=== PATIENT | male | born 1970 | race Caucasian/White ===

== ENCOUNTER 2016-05-25 16:11 | Emergency (ER) | payer BC ==
[2016-05-25 16:11] VITALS: BMI 21.7
[2016-05-25 16:23] VITALS: BP 145/86; PULSE 94; RESP 18; TEMP 97.9; O2SAT 95
[2016-05-25] MEDS ORDERED: TDAP Vaccine 0.5 mL Syr IM ONE (17:26)
--- NOTE | 2016-05-25 17:28 | ED PDOC ---
Arrival/HPI - General Chief Complaint: Upper Extremity Problem/Injury Time Seen by Provider: 05/25/16 17:16 Historian: Patient - History of Present Illness Narrative History of Present Illness (Text): 05/25/16 18:19 45-year-old male presents today with bilateral hand pain and swelling and erythema. 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 Patient states over the past few days his hand has been becoming more painful bilaterally. He's noticed increased redness and swelling. No medications have been taken for pain at home. Patient denies fevers or chills. Patient is unsure of his last tetanus shot. Patient states he just needs antibiotics in a few days off of work and it will be better. Patient states he has been applying lotion to his hands but no matter what he does he cannot stop the pain and is unable to have the cuts resolve. Past Medical History - Provider Review Nursing Documentation Reviewed: Yes - Travel History Have you recently traveled outside [place] w/in the past 3 mons?: No - Past History Past History: No Previous - Infectious Disease Hx of Infectious Diseases: None - Tetanus Immunization Tetanus Immunization: Unknown, Up to Date - Past Medical History Past Medical History: No Previous - Cardiac Hx Cardiac Disorders: No - Pulmonary Hx Respiratory Disorders: No - Neurological Hx Neurological Disorder: No - HEENT Hx HEENT Disorder: No - Renal Hx Renal Disorder: No - Endocrine/Metabolic Hx Endocrine Disorders: No - Hematological/Oncological Hx Blood Disorders: No - Integumentary Hx Dermatological Disorder: No - Musculoskeletal/Rheumatological Hx Musculoskeletal Disorders: Yes Hx Back Pain: Yes Other/Comment: CHRONIC BACK PAIN - Gastrointestinal Hx Gastrointestinal Disorders: No - Genitourinary/Gynecological Hx Genitourinary Disorders: No - Psychiatric Hx Psychophysiologic Disorder: Yes Hx Depression: Yes Hx Substance Use: Yes (Currently on Methadone) Other/Comment: Past drug user - Past Surgical History Past Surgical History: No Previous - Anesthesia Hx Anesthesia: No Hx Anesthesia Reactions: No Hx Malignant Hyperthermia: No - Suicidal Assessment Feels Threatened In Home Enviroment: No Family/Social History - Physician Review Nursing Documentation Reviewed: Yes Family/Social History: Unknown Family HX Smoking Status: Heavy Smoker > 10 Cigarettes Daily Hx Alcohol Use: Yes Hx Substance Use: Yes (Currently on Methadone) Substance used: COCAINE/IV DRUG USE HEROIN Hx Substance Use Treatment: No Allergies/Home Meds Allergies/Adverse Reactions: Allergies Penicillins Allergy (Verified 05/25/16 16:23) RASH pentazocine lactate [From Talwin] Allergy (Verified 05/25/16 16:23) ANAPHYLAXIS Home Medications: Home Meds Medication Instructions Recorded Confirmed Methadone [Methadone HCl] 80 mg PO DAILY 04/02/12 11/28/15 Review of Systems - Review of Systems Constitutional: absent: Fatigue, Fevers Respiratory: absent: SOB, Cough Cardiovascular: absent: Chest Pain, Palpitations Gastrointestinal: absent: Abdominal Pain, Diarrhea, Nausea, Vomiting Genitourinary Male: absent: Dysuria, Frequency, Hematuria Musculoskeletal: Arthralgias. absent: Back Pain, Neck Pain Skin: Cellulitis. absent: Rash, Pruritis Neurological: absent: Headache, Dizziness Psychiatric: absent: Anxiety, Depression, Suicidal Ideation Physical Exam Vital Signs Reviewed: Yes Vital Signs Temp Pulse Resp BP Pulse Ox 05/25/16 16:17 97.9 F 94 H 18 145/86 95 Temperature: Afebrile Blood Pressure: Normal Pulse: Regular Respiratory Rate: Normal Appearance: Positive for: Well-Appearing, Non-Toxic, Comfortable Pain Distress: None Mental Status: Positive for: Alert and Oriented X 3 - Systems Exam Head: Present: Atraumatic Mouth: Present: Moist Mucous Membranes Neck: Present: Normal Range of Motion Respiratory/Chest: Present: Clear to Auscultation, Good Air Exchange. No: Respiratory Distress, Accessory Muscle Use Cardiovascular: Present: Regular Rate and Rhythm, Normal S1, S2. No: Murmurs Upper Extremity: Present: Normal ROM, NORMAL PULSES, Tenderness (hands bilaterally; + tenderness and slight edema and erythema noted to the entire hand with multiple small chronic cuts and lichinifed skin along the volar aspect of the PIP and MCP of fingers and IP of thumb), Swelling, Erythema, Neurovascularly Intact, Capillary Refill < 2s. No: Deformity Neurological: Present: GCS=15, Speech Normal, Motor Func Grossly Intact, Normal Sensory Function Skin: Present: Warm, Dry, Normal Color Psychiatric: Present: Alert, Oriented x 3 Medical Decision Making ED Course and Treatment: 05/25/16 45yr old male with swelling and erythema to the hands bilaterally. afebrile. no distress. pt refusing blood work and further evaluation of cellulitis to bilateral hands. pt states he just wants rx for antibiotics and wants days off of work and wants to go home. i advised the patient that he needs blood work and further evaluation regarding the cellulitis/skin infection on his hands bilaterally. pt states he doesn't want to stay in the hospital. will give patient dose of clindamycin in er and d/c home with rx for clindamcyin. advised return if he wishes to continue his care. tetanus updated. Patient has been advised to not leave the emergency room but has decided to go AGAINST MEDICAL ADVICE. The patient possesses capacity to make decisions and has voiced understanding to all my warnings of potential worsening of the condition for which medical care was sought. I have discussed all known and potential risks and consequences to the patient leaving AGAINST MEDICAL ADVICE. Patient is leaving against medical advise. AMA form signed. witness by ABHILASH giles. Impression: cellulitis, hand bilaterally Return immediately if you wish to continue your care Clindamycin 1 tablet 3 times daily 10 days Motrin every 6 hours as needed for pain Follow up with a hand specialist within the next 2 days Return immediately if symptoms worsen or persist or if new concerning symptoms develop: High fevers, increasing pain, increasing redness, increasing swelling, purulent discharge - Medication Orders Current Medication Orders: Discontinued Medications Clindamycin HCl (Cleocin) 300 mg PO STAT STA PRN Reason: Protocol Stop: 05/25/16 17:20 Last Admin: 05/25/16 17:39 Dose: 300 MG Ibuprofen (Motrin Tab) 600 mg PO STAT STA Stop: 05/25/16 17:21 Last Admin: 05/25/16 17:39 Dose: 600 MG [facility] Pain/Vitals Document 05/25/16 17:39 [facility] (Rec: 05/25/16 17:39 [id number] Pain Reassessment Is This A Pain ReAssessment? No Sleep Is patient sleeping during reassessment? No Presence of Pain Presence of Pain Yes Pain Scale Used Pain Scale Used Numeric Location Left, Right or Bilateral Bilateral Pain Location Body Site Hand Description Intermittent Intensity 6 Scale Used Numeric Pain Behavior Guarding Aggravating Factors Changing Position Tetanus/Reduced Diphtheria/Acell Pertussis (Boostrix Vaccine Inj) 0.5 ml IM .ONCE ONE Stop: 05/25/16 17:27 Last Admin: 05/25/16 17:38 Dose: 0.5 ML [facility] Immunization Data Document 05/25/16 17:38 [facility] (Rec: 05/25/16 17:39 [facility] [id number]) Immunization Data Opt out of sending immunization data to Yes respository? Suppress immunization data to other Yes providers from registry? Vaccine Eligibility Yes Vaccine Information Sheet Given Yes Informed Consent Given Yes Vaccine Lot Number [id number] Vaccine Expiration Date 05/22/18 Site Given Left Deltoid Route Intramuscular Immunization Units ml Disposition/Present on Arrival - Present on Arrival Any Indicators Present on Arrival: No History of DVT/PE: No History of Uncontrolled Diabetes: No Urinary Catheter: No History of Decub. Ulcer: No History Surgical Site Infection Following: None - Disposition Have Diagnosis and Disposition been Completed?: Yes Diagnosis: Cellulitis of hand Disposition: AGAINST MEDICAL ADVICE Disposition Time: 17:25 Patient Plan: Other (AMA) Condition: GUARDED Discharge Instructions (ExitCare): Cellulitis (ED) Additional Instructions: Return immediately if you wish to continue your care Clindamycin 1 tablet 3 times daily 10 days Motrin every 6 hours as needed for pain Follow up with a hand specialist within the next 2 days Return immediately if symptoms worsen or persist or if new concerning symptoms develop: High fevers, increasing pain, increasing redness, increasing swelling, purulent discharge Prescriptions: Clindamycin [Cleocin] 300 mg PO TID #21 cap Ibuprofen [Motrin] 600 mg PO Q6H PRN #20 tab PRN Reason: pain/fever reduction Referrals: PCP,NO [Primary Care Provider] - Follow up with primary Gifty Voss MD [Staff Provider] - Follow up with primary Abby Russell MD [Staff Provider] - Follow up with primary [facility] [Outside] - Follow up with primary Forms: WORK NOTE
== END 2016-05-25 17:45 | disposition left against medical advice (07) ==
LOC: ED 16:11
DX: L03.114 Cellulitis of left upper limb (principal); L03.113 Cellulitis of right upper limb; Z23 Encounter for immunization

== ENCOUNTER 2017-06-07 16:57 | Inpatient (IN) | payer BC, MEDICAID, OTHER ==
--- NOTE | 2017-06-07 17:35 | ED PDOC ---
Arrival/HPI - General Time Seen by Provider: 06/07/17 17:31 Historian: Patient - History of Present Illness Narrative History of Present Illness (Text): 06/07/17 17:32 46 y/o male, no significant pmh, psychiatric history including alcohol and drug abuse which he is on the methadone, penicillin/pentazocine allergy?, c/o Past Medical History - Past History Past History: No Previous - Infectious Disease Hx of Infectious Diseases: None - Tetanus Immunization Tetanus Immunization: Unknown, Up to Date - Past Medical History Past Medical History: No Previous - Cardiac Hx Cardiac Disorders: No - Pulmonary Hx Respiratory Disorders: No - Neurological Hx Neurological Disorder: No - HEENT Hx HEENT Disorder: No - Renal Hx Renal Disorder: No - Endocrine/Metabolic Hx Endocrine Disorders: No - Hematological/Oncological Hx Blood Disorders: No - Integumentary Hx Dermatological Disorder: No - Musculoskeletal/Rheumatological Hx Musculoskeletal Disorders: Yes Hx Back Pain: Yes Other/Comment: CHRONIC BACK PAIN - Gastrointestinal Hx Gastrointestinal Disorders: No - Genitourinary/Gynecological Hx Genitourinary Disorders: No - Psychiatric Hx Psychophysiologic Disorder: Yes Hx Depression: Yes Hx Substance Use: Yes (Currently on Methadone) Other/Comment: Past drug user - Past Surgical History Past Surgical History: No Previous - Anesthesia Hx Anesthesia: No Hx Anesthesia Reactions: No Hx Malignant Hyperthermia: No - Suicidal Assessment Feels Threatened In Home Enviroment: No Family/Social History Smoking Status: Heavy Smoker > 10 Cigarettes Daily Hx Alcohol Use: Yes Hx Substance Use: Yes (Currently on Methadone) Substance used: COCAINE/IV DRUG USE HEROIN Hx Substance Use Treatment: No Allergies/Home Meds Allergies/Adverse Reactions: Allergies Penicillins Allergy (Verified 05/25/16 16:23) RASH pentazocine lactate [From Talwin] Allergy (Verified 05/25/16 16:23) ANAPHYLAXIS Home Medications: Home Meds Medication Instructions Recorded Confirmed Methadone [Methadone HCl] 80 mg PO DAILY 04/02/12 11/28/15 Disposition/Present on Arrival - Present on Arrival History of DVT/PE: No History of Uncontrolled Diabetes: No Urinary Catheter: No History Surgical Site Infection Following: None - Disposition
--- NOTE | 2017-06-07 17:54 | ED PDOC ---
Arrival/HPI - General Time Seen by Provider: 06/07/17 17:31 Historian: Patient - History of Present Illness Narrative History of Present Illness (Text): 06/07/17 17:54 Patient is a 46 yo male who presents to the Emergency Department complaining of left sided abdominal pain. Patient states pain is constant for several "months" , worse over past several weeks. Denies nausea or vomiting. Pain worse with movement. Denies pain with urination. Denies bloody urine or stool. Patient denies testicular pain or swelling. Pain denies rash. Patient denies dark stool or diarrhea. Time/Duration: > month Symptom Onset: Gradual Past Medical History - Provider Review Nursing Documentation Reviewed: Yes - Past History Past History: No Previous - Infectious Disease Hx of Infectious Diseases: None - Tetanus Immunization Tetanus Immunization: Unknown, Up to Date - Past Medical History Past Medical History: No Previous - Cardiac Hx Cardiac Disorders: No - Pulmonary Hx Respiratory Disorders: No - Neurological Hx Neurological Disorder: No - HEENT Hx HEENT Disorder: No - Renal Hx Renal Disorder: No - Endocrine/Metabolic Hx Endocrine Disorders: No - Hematological/Oncological Hx Blood Disorders: No - Integumentary Hx Dermatological Disorder: No - Musculoskeletal/Rheumatological Hx Musculoskeletal Disorders: Yes Hx Back Pain: Yes Other/Comment: CHRONIC BACK PAIN - Gastrointestinal Hx Gastrointestinal Disorders: No - Genitourinary/Gynecological Hx Genitourinary Disorders: No - Psychiatric Hx Psychophysiologic Disorder: Yes Hx Depression: Yes Hx Substance Use: Yes (Currently on Methadone) Other/Comment: Past drug user - Past Surgical History Past Surgical History: No Previous - Anesthesia Hx Anesthesia: No Hx Anesthesia Reactions: No Hx Malignant Hyperthermia: No - Suicidal Assessment Feels Threatened In Home Enviroment: No Family/Social History - Physician Review Nursing Documentation Reviewed: Yes Family/Social History: Unknown Family HX Smoking Status: Heavy Smoker > 10 Cigarettes Daily Hx Alcohol Use: Yes Hx Substance Use: Yes (Currently on Methadone) Substance used: COCAINE/IV DRUG USE HEROIN Hx Substance Use Treatment: No Allergies/Home Meds Allergies/Adverse Reactions: Allergies Penicillins Allergy (Verified 06/07/17 18:08) RASH pentazocine lactate [From Talwin] Allergy (Verified 06/07/17 18:08) ANAPHYLAXIS Home Medications: Home Meds Medication Instructions Recorded Confirmed Unobtainable 06/07/17 06/07/17 Review of Systems - Review of Systems Constitutional: absent: Fatigue, Fevers Eyes: absent: Vision Changes ENT: absent: Hearing Changes Respiratory: absent: SOB Cardiovascular: absent: Chest Pain Gastrointestinal: Abdominal Pain, Appetite Changes. absent: Stool Changes, Constipation, Diarrhea, Nausea, Vomiting, Hematochezia, Hematemesis, Food Intolerance Genitourinary Male: absent: Dysuria, Frequency Musculoskeletal: absent: Back Pain Skin: absent: Rash Neurological: absent: Headache, Dizziness, Focal Weakness Endocrine: absent: Polyuria Hemo/Lymphatic: absent: Easy Bleeding Psychiatric: Depression (patient expresses sadness over reported recent of brother last year and " 2 months ago". He denies suicidal ideation.). absent: Suicidal Ideation Physical Exam - Physical Exam Physical Exam Limitations: Uncooperative (patient slaps my hand away when I attempt to examine) Vital Signs Reviewed: Yes Vital Signs Temp Pulse Resp BP Pulse Ox 06/07/17 21:48 86 16 130/88 96 06/07/17 19:15 99 H 18 103/72 97 06/07/17 17:40 98.2 F 06/07/17 17:37 64 14 113/68 100 Temperature: Afebrile Pulse: Tachycardic Appearance: Positive for: Comfortable Pain Distress: Mild Mental Status: Positive for: Alert and Oriented X 3 - Systems Exam Head: Present: Atraumatic Pupils: Present: PERRL Extroacular Muscles: Present: EOMI Mouth: Present: Moist Mucous Membranes Pharnyx: No: ERYTHEMA, EXUDATE Neck: Present: Normal Range of Motion. No: Meningeal Signs Respiratory/Chest: Present: Clear to Auscultation. No: Respiratory Distress Cardiovascular: Present: Tachycardic Abdomen: Present: Tenderness (left flank, left lower quadrant) Rectal: Present: Other (patient refuses, warned of risks) Genitourinary Male: Present: Other (patient refuses, risks reviewed) Back: Present: Paraspinal Tenderness Upper Extremity: No: Edema Lower Extremity: Present: Other (patient refuses to get undressed) Neurological: Present: Speech Normal, Motor Func Grossly Intact, Normal Sensory Function, Memory Normal Skin: Present: Warm Psychiatric: Present: Alert, Oriented x 3, Normal Insight, Depressed Mood. No: Suicidal Ideation, Homicidal Ideation, Intoxicated Medical Decision Making ED Course and Treatment: 06/07/17 18:19 Upon arrival to ER, I attempted to evaluate patient in the room. I introduced myself as the Emergency Physician, patient confirmed ID and I proceeded to interview patient. He states that he called ambulance because he has been having left sided abdominal pain "for months". I stated that I wished to examine the patient he initially stated "don't you touch me I'm in too much pain ". I discussed with patient in laymens terms that I could not completely examine the patient without palpation and reviewed indications and differential diagnosis. He subsequently agreed to exam through his clothing, I reviewed limitations of this with patient. 06/07/17 20:35 CT abdomen and pelvis: FINDINGS: Lung bases: No acute abnormality as visualized. ABDOMEN: Liver: No acute abnormality as visualized. Gallbladder and bile ducts: No acute abnormality as visualized. Pancreas: No acute abnormality as visualized. Spleen: No splenomegaly. Adrenals: No acute abnormality as visualized. Kidneys and ureters: No obstructing stones. No hydronephrosis. Stomach and bowel: Limited evaluation without enteric contrast. No obstruction. Appendix: No findings to suggest acute appendicitis. PELVIS: Bladder: No acute abnormality as visualized. Reproductive: No acute abnormality as visualized. ABDOMEN and PELVIS: Intraperitoneal space: No free air. No significant fluid collection. Bones/joints: Degenerative changes. Soft tissues: Fat-containing umbilical hernia. Vasculature: Atherosclerosis. No abdominal aortic aneurysm. Lymph nodes: Shotty nodes. IMPRESSION: No obstructing renal calculus or hydronephrosis. Correlate clinically to exclude infection. Please note evaluation for underlying visceral lesions/abnormalities limited without intravenous contrast. 06/07/17 20:38 CT results reviewed with patient. He states that he is beginning to feel nauseous and shaky. He permits me to re-examine him, he is tremulous and tachycardic. He states last drink of alcohol was "7 hours ago". I have discussed with patient in laymens' terms that I would be ordered alcohol level given his reported history of alcohol use and complaints of tremulousness. He states he has taken Librium before, librium ordered. Risks/side effects reviewed with patient. I have recommended admission for alcohol withdrawal, patient is agreeable to treatment plan. Will discuss with admitting team need for mental health evaluation given depression symptoms when medically cleared. 06/07/17 20:51 Patient reiterates that he is not suicidal. 04/08/18 21:53 Patient's case reviewed with Dr. Hernandez, accepts admission to hospitalist service. Endorsed need for mental health evaluation after medical clearance to admitting team. - Lab Interpretations Lab Results: 06/07/17 18:06/07/17 18: Lab Results 06/07/17 18:29: Urine Opiates Screen Negative, Urine Methadone Screen Negative, Ur Barbiturates Screen Negative, Ur Phencyclidine Scrn Negative, Ur Amphetamines Screen Negative, U Benzodiazepines Scrn Negative, U Oth Cocaine Metabols Negative, U Cannabinoids Screen Negative 06/07/17 18:: Salicylates < 1 L, Acetaminophen < 10.0 L 06/07/17 18:: Sodium 146, Potassium 3.8, Chloride 107, Carbon Dioxide 22, Anion Gap 21 H, BUN 8, Creatinine 0.9, Est GFR ( Amer) > 60, Est GFR (Non -Af Amer) > 60, Random Glucose 153 H, Calcium 9.2, Magnesium 2.2, Total Bilirubin 0.4, AST 247 H, ALT 120 H, Alkaline Phosphatase 157 H, Total Protein 7.8, Albumin 4.2, Globulin 3.7, Albumin/Globulin Ratio 1.1, Amylase 63, Lipase 391 H 06/07/17 18:29: Urine Color Yellow, Urine Appearance Clear, Urine pH 5.5, Ur Specific [place] 1.010, Urine Protein Negative, Urine Glucose (UA) Negative, Urine Ketones Negative, Urine Blood Negative, Urine Nitrate Negative, Urine Bilirubin Negative, Urine Urobilinogen 0.2, Ur Leukocyte Esterase Negative 06/07/17 18:: PT 10.0, INR 0.88 L, APTT 31.3 06/07/17 18:29: WBC 5.7, RBC 4.55, Hgb 15.7, Hct 43.8, MCV 96.3, MCH 34.5, MCHC 35.8, RDW 12.3, Plt Count 171, MPV 9.7, Gran % 46.6 L, Lymph % (Auto) 36.4 H, [place] % (Auto) 10.5 H, Eos % (Auto) 5.6 H, Baso % (Auto) 0.9, Gran # 2.68, Lymph # (Auto) 2.1, [place] # (Auto) 0.6, Eos # (Auto) 0.3, Baso # (Auto) 0.05 06/07/17 17:30: Alcohol, Quantitative 297 H 06/07/17 17:30: Lactate Dehydrogenase 838 H, Total Creatine Kinase 107, Troponin I < 0.01 I have reviewed the lab results: Yes - RAD Interpretation Radiology Orders: 06/07/17 18:10 ABD & PELVIS W/O PO OR IV CONT [CT] Stat 06/07/17 20:41 CHEST PORTABLE [RAD] Stat Blockman: Radiologist - EKG Interpretation Interpreted by ED Physician: Yes Type: 12 lead EKG - Medication Orders Current Medication Orders: Discontinued Medications Chlordiazepoxide (Librium) 50 mg PO STAT STA PRN Reason: Protocol Stop: 06/07/17 20:38 Last Admin: 06/07/17 20:41 Dose: 50 mg Famotidine (Pepcid) 20 mg IVP STAT STA Stop: 06/07/17 20:52 Last Admin: 06/07/17 20:56 Dose: 20 mg IVP Administration Document 06/07/17 20:56 CNR (Rec: 06/07/17 20:56 CNR [id number]) Charges for Administration # of IVP Administrations 1 Sodium Chloride (Sodium Chloride 0.9%) 1,000 mls @ 1,000 mls/hr IV .Q1H STA Stop: 06/07/17 21:36 Last Admin: 06/07/17 20:41 Dose: 1,000 mls/hr eMAR Start Stop Document 06/07/17 20:41 CNR (Rec: 06/07/17 20:42 CNR [id number]) Intravenous Solution Start Date 06/07/17 Start Time 20:42 Ondansetron HCl (Zofran Inj) 4 mg IVP ONCE ONE Stop: 06/07/17 20:52 Last Admin: 06/07/17 20:56 Dose: 4 mg IVP Administration Document 06/07/17 20:56 CNR (Rec: 06/07/17 20:56 CNR [id number]) Charges for Administration # of IVP Administrations 1 - Scribe Statement The provider has reviewed the documentation as recorded by the Gastonibashley Brantley Provider Scribe Attestation: All medical record entries made by the Scribe were at my direction and personally dictated by me. I have reviewed the chart and agree that the record accurately reflects my personal performance of the history, physical exam, medical decision making, and the department course for this patient. I have also personally directed, reviewed, and agree with the discharge instructions and disposition. Disposition/Present on Arrival - Present on Arrival Any Indicators Present on Arrival: No History of DVT/PE: No History of Uncontrolled Diabetes: No Urinary Catheter: No History Surgical Site Infection Following: None - Disposition Have Diagnosis and Disposition been Completed?: Yes Diagnosis: Alcohol withdrawal, Flank pain, Abdominal pain, Elevated liver enzymes Disposition: HOSPITALIZED Disposition Time: 20:41 Patient Plan: Admission, Telemetry Patient Problems: Current Active Problems Problem Status Onset Abdominal pain Acute Alcohol withdrawal Acute Elevated liver enzymes Acute Flank pain Acute Condition: SERIOUS
[2017-06-07 17:56] VITALS: BMI 26.3
[2017-06-07 18:54] LABS: ACETAMINOPHEN < 10.0 ug/ml (10.0-20.0); BASO # 0.05 K/mm3 (0.0-2.0); BASO % 0.9 % (0.0-3.0); EOS # 0.3 (0.0-0.7); EOS % 5.6 % (1.5-5.0); GRAN # 2.68 (1.4-6.5); GRAN % 46.6 % (50.0-68.0); HEMOGLOBIN 15.7 g/dL (14.0-18.0); LYMPH # 2.1 (1.2-3.4); LYMPH % 36.4 % (22.0-35.0); MEAN CELL VOLUME 96.3 fl (80.0-105.0); MEAN CORPUSCULAR HEMOGLOBIN 34.5 pg (25.0-35.0); MEAN CORPUSCULAR HGB CONC 35.8 g/dl (31.0-37.0); MEAN PLATELET VOLUME 9.7 fl (7.0-11.0); MONO # 0.6 (0.1-0.6); MONO % 10.5 % (1.0-6.0); RBC 4.55 10^6/uL (3.5-6.1); RED CELL DISTRIBUTION WIDTH 12.3 % (11.5-14.5); SALICYLATE < 1 mg/dL (2.0-20.0); WHITE BLOOD COUNT 5.7 10^3/ul (4.5-11.0)
[2017-06-07 18:55] LABS: ALB/GLOB RATIO 1.1 (1.1-1.8); ALBUMIN 4.2 g/dL (3.0-4.8); AMYLASE 63 U/L (35-125); CALCIUM 9.2 mg/dL (8.4-10.5); GFR AFRICAN-AMERICAN > 60; GFR NON-AFRICAN AMERICAN > 60; LIPASE 391 U/L (23-300); PH,URINE 5.5 (4.7-8.0); URINE APPEARANCE CLEAR (CLEAR); URINE BILIRUBIN NEGATIVE (NEGATIVE); URINE BLOOD NEGATIVE (NEGATIVE); URINE COLOR YELLOW (YELLOW); URINE GLUCOSE (UA) NEGATIVE (NEGATIVE); URINE LEUKOCYTE ESTERASE NEGATIVE Leu/uL (NEGATIVE); URINE PROTEIN NEGATIVE mg/dL (<30 mg/dL); URINE UROBILINOGEN 0.2 E.U./dL (<1 E.U./dL)
[2017-06-07 19:00] LABS: INR 0.88 (0.93-1.08); PARTIAL THROMBOPLASTIN TIME 31.3 Seconds (25.1-36.5)
[2017-06-07 19:06] LABS: BENZODIAZEPINES, UR NEGATIVE (NEGATIVE)
[2017-06-07 19:25] LABS: ALT/SGPT 120 U/L (7-56); AST/SGOT 247 U/L (17-59); BARBITURATES, UR NEGATIVE (NEGATIVE); BLOOD UREA NITROGEN 8 mg/dL (7-21); OPIATES, UR NEGATIVE (NEGATIVE); PHENCYCLIDINE, UR NEGATIVE (NEGATIVE)
--- NOTE | 2017-06-07 20:07 | CT ---
EXAM: CT Abdomen and Pelvis Without Intravenous Contrast CLINICAL HISTORY: 46 years old, male; Pain; Abdominal pain; Acute; Additional info: Left flank pain TECHNIQUE: Axial computed tomography images of the abdomen and pelvis without intravenous contrast. All CT scans at this facility use one or more dose reduction techniques, viz.: automated exposure control; ma/kV adjustment per patient size (including targeted exams where dose is matched to indication; i.e. head); or iterative reconstruction technique. Coronal and sagittal reformatted images were created and reviewed. COMPARISON: No relevant prior studies available. FINDINGS: Lung bases: No acute abnormality as visualized. ABDOMEN: Liver: No acute abnormality as visualized. Gallbladder and bile ducts: No acute abnormality as visualized. Pancreas: No acute abnormality as visualized. Spleen: No splenomegaly. Adrenals: No acute abnormality as visualized. Kidneys and ureters: No obstructing stones. No hydronephrosis. Stomach and bowel: Limited evaluation without enteric contrast. No obstruction. Appendix: No findings to suggest acute appendicitis. PELVIS: Bladder: No acute abnormality as visualized. Reproductive: No acute abnormality as visualized. ABDOMEN and PELVIS: Intraperitoneal space: No free air. No significant fluid collection. Bones/joints: Degenerative changes. Soft tissues: Fat-containing umbilical hernia. Vasculature: Atherosclerosis. No abdominal aortic aneurysm. Lymph nodes: Shotty nodes. IMPRESSION: No obstructing renal calculus or hydronephrosis. Correlate clinically to exclude infection. Please note evaluation for underlying visceral lesions/abnormalities limited without intravenous contrast.
[2017-06-07] MEDS ORDERED: Sodium Chloride 0.9% 1,000 ML IV STA (20:37)
[2017-06-07 20:59] LABS: TROPONIN I < 0.01 ng/mL
[2017-06-07] MEDS ORDERED: Multivitamin (MVI) 10 ML, Thiamine 100 MG, Folic Acid 1 MG in Sodium Chloride 0.9% 1,00... IV ONE (23:30)
--- NOTE | 2017-06-07 23:41 | CP.PCM.HP ---
<Selam Porter - Last Filed: 06/08/17 00:12> History of Present Illness - History of Present Illness History of Present Illness: Selam Porter, PGY1, H&P for Dr Hernandez: CC: alcohol intoxication, LLQ abdominal pain 46 year old male with PMH depression, anxiety, Hepatitis C, HTN, presents for LLQ abdominal pain for past several months. Pt states that it is worse with movement, however, denies trauma to the area. Denies fever, chills, nausea, vomiting, hematemesis, diarrhea, constipation, melena, hematochezia, urinary symptoms, hematuria, testicular pain/swelling. Pt also complains of being depressed over past some time due to custody dillard over his child and his fiance leaving nearly a month ago. Denies suicidal/homicidal ideations. In ED, vitals stable. elevated alcohol level 297. CT abd pelvis negative for inflammatory/infectious etiology. Given Librium, pepcid, zofran and 1L NS bolus in ED. At the time of my exam (after Librium administration), pt sleepy. Denies cp, sob, abdominal pain, nausea, vomiting, headache, fever, chills, neck pain, cough, hemoptysis, diarrhea, constipation, urinary symptoms, leg swelling. 12 point ROS obtained and neg, except as per HPI. PMH: depression, anxiety, Hepatitis C, IV drug user, HTN? PSH: denies All: PCN - rash FH: denies SH: Lives by self. 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 Drinks nikita daily, smokes tobacco 1 ppd x 30 years Present on Admission - Present on Admission Any Indicators Present on Admission: No History of DVT/PE: No History of Uncontrolled Diabetes: No Urinary Catheter: No Decubitus Ulcer Present: No Review of Systems - Review of Systems All systems: reviewed and no additional remarkable complaints except Review of Systems: as per HPI Past Patient History - Infectious Disease Hx of Infectious Diseases: None - Tetanus Immunizations Tetanus Immunization: Unknown, Up to Date - Past Social History Smoking Status: Heavy Smoker > 10 Cigarettes Daily - CARDIAC Hx Cardiac Disorders: No - PULMONARY Hx Respiratory Disorders: No - NEUROLOGICAL Hx Neurological Disorder: No - HEENT Hx HEENT Problems: No - RENAL Hx Chronic Kidney Disease: No - ENDOCRINE/METABOLIC Hx Endocrine Disorders: No - HEMATOLOGICAL/ONCOLOGICAL Hx Blood Disorders: No - INTEGUMENTARY Hx Dermatological Problems: No - MUSCULOSKELETAL/RHEUMATOLOGICAL Hx Musculoskeletal Disorders: Yes Hx Back Pain: Yes Other/Comment: CHRONIC BACK PAIN - GASTROINTESTINAL Hx Gastrointestinal Disorders: No - GENITOURINARY/GYNECOLOGICAL Hx Genitourinary Disorders: No - PSYCHIATRIC Hx Psychophysiologic Disorder: Yes Hx Depression: Yes Hx Substance Use: Yes (Currently on Methadone) Other/Comment: Past drug user - SURGICAL HISTORY Hx Surgeries: No - ANESTHESIA Hx Anesthesia: No Hx Anesthesia Reactions: No Hx Malignant Hyperthermia: No Meds Allergies/Adverse Reactions: Allergies Allergy/AdvReac Type Severity Reaction Status Date / Time Penicillins Allergy RASH Verified 06/07/17 18:08 pentazocine lactate Allergy ANAPHYLAXIS Verified 06/07/17 18:08 [From Michelle] Physical Exam - Constitutional Appears: Non-toxic, No Acute Distress - Head Exam Head Exam: ATRAUMATIC, NORMOCEPHALIC - Eye Exam Eye Exam: EOMI, PERRL. absent: Conjunctival injection, Nystagmus, Scleral icterus Pupil Exam: NORMAL ACCOMODATION, PERRL. absent: Fixed, Irregular, Unequal - ENT Exam ENT Exam: Mucous Membranes Moist - Neck Exam Neck exam: Positive for: Full Rom - Respiratory Exam Respiratory Exam: Clear to Auscultation Bilateral, NORMAL BREATHING PATTERN. absent: Accessory Muscle Use, Rhonchi, Wheezes, Stridor - Cardiovascular Exam Cardiovascular Exam: RRR, +S1, +S2. absent: Systolic Murmur - GI/Abdominal Exam GI & Abdominal Exam: Normal Bowel Sounds, Tenderness (TTP in LLQ). absent: Distended, Firm, Guarding, Mass, Rigid - Extremities Exam Extremities exam: Positive for: normal inspection. Negative for: calf tenderness, pedal edema - Back Exam Back exam: NORMAL INSPECTION - Neurological Exam Neurological exam: Altered (sleepy) - Psychiatric Exam Psychiatric exam: Depressed Additional comments: sleepy - Skin Skin Exam: Dry, Normal Color, Warm Results - Vital Signs Recent Vital Signs: Last Vital Signs Temp 98.2 F 06/07/17 17:40 Pulse 86 06/07/17 21:48 Resp 16 06/07/17 21:48 BP 130/88 06/07/17 21:48 Pulse Ox 96 06/07/17 21:48 - Labs Result Diagrams: 06/07/17 18:29 06/07/17 18:29 Labs: Laboratory Results - last 24 hr 06/07/17 06/07/17 06/07/17 17:30 17:30 18:29 WBC 5.7 RBC 4.55 Hgb 15.7 Hct 43.8 MCV 96.3 MCH 34.5 MCHC 35.8 RDW 12.3 Plt Count 171 MPV 9.7 Gran % 46.6 L Lymph % (Auto) 36.4 H [place] % (Auto) 10.5 H Eos % (Auto) 5.6 H Baso % (Auto) 0.9 Gran # 2.68 Lymph # (Auto) 2.1 [place] # (Auto) 0.6 Eos # (Auto) 0.3 Baso # (Auto) 0.05 PT INR APTT Sodium Potassium Chloride Carbon Dioxide Anion Gap BUN Creatinine Est GFR ( Amer) Est GFR (Non-Af Amer) Random Glucose Calcium Magnesium Total Bilirubin AST ALT Alkaline Phosphatase Lactate Dehydrogenase 838 H Total Creatine Kinase 107 Troponin I < 0.01 Total Protein Albumin Globulin Albumin/Globulin Ratio Amylase Lipase Urine Color Urine Appearance Urine pH Ur Specific [place] Urine Protein Urine Glucose (UA) Urine Ketones Urine Blood Urine Nitrate Urine Bilirubin Urine Urobilinogen Ur Leukocyte Esterase Salicylates Urine Opiates Screen Urine Methadone Screen Acetaminophen Ur Barbiturates Screen Ur Phencyclidine Scrn Ur Amphetamines Screen U Benzodiazepines Scrn U Oth Cocaine Metabols U Cannabinoids Screen Alcohol, Quantitative 297 H 06/07/17 06/07/17 06/07/17 18:29 18:29 18:29 WBC RBC Hgb Hct MCV MCH MCHC RDW Plt Count MPV Gran % Lymph % (Auto) [place] % (Auto) Eos % (Auto) Baso % (Auto) Gran # Lymph # (Auto) [place] # (Auto) Eos # (Auto) Baso # (Auto) PT 10.0 INR 0.88 L APTT 31.3 Sodium 146 Potassium 3.8 Chloride 107 Carbon Dioxide 22 Anion Gap 21 H BUN 8 Creatinine 0.9 Est GFR ( Amer) > 60 Est GFR (Non-Af Amer) > 60 Random Glucose 153 H Calcium 9.2 Magnesium 2.2 Total Bilirubin 0.4 AST 247 H ALT 120 H Alkaline Phosphatase 157 H Lactate Dehydrogenase Total Creatine Kinase Troponin I Total Protein 7.8 Albumin 4.2 Globulin 3.7 Albumin/Globulin Ratio 1.1 Amylase 63 Lipase 391 H Urine Color Yellow Urine Appearance Clear Urine pH 5.5 Ur Specific [place] 1.010 Urine Protein Negative Urine Glucose (UA) Negative Urine Ketones Negative Urine Blood Negative Urine Nitrate Negative Urine Bilirubin Negative Urine Urobilinogen 0.2 Ur Leukocyte Esterase Negative Salicylates Urine Opiates Screen Urine Methadone Screen Acetaminophen Ur Barbiturates Screen Ur Phencyclidine Scrn Ur Amphetamines Screen U Benzodiazepines Scrn U Oth Cocaine Metabols U Cannabinoids Screen Alcohol, Quantitative 06/07/17 06/07/17 18:29 18:29 WBC RBC Hgb Hct MCV MCH MCHC RDW Plt Count MPV Gran % Lymph % (Auto) [place] % (Auto) Eos % (Auto) Baso % (Auto) Gran # Lymph # (Auto) [place] # (Auto) Eos # (Auto) Baso # (Auto) PT INR APTT Sodium Potassium Chloride Carbon Dioxide Anion Gap BUN Creatinine Est GFR ( Amer) Est GFR (Non-Af Amer) Random Glucose Calcium Magnesium Total Bilirubin AST ALT Alkaline Phosphatase Lactate Dehydrogenase Total Creatine Kinase Troponin I Total Protein Albumin Globulin Albumin/Globulin Ratio Amylase Lipase Urine Color Urine Appearance Urine pH Ur Specific [place] Urine Protein Urine Glucose (UA) Urine Ketones Urine Blood Urine Nitrate Urine Bilirubin Urine Urobilinogen Ur Leukocyte Esterase Salicylates < 1 L Urine Opiates Screen Negative Urine Methadone Screen Negative Acetaminophen < 10.0 L Ur Barbiturates Screen Negative Ur Phencyclidine Scrn Negative Ur Amphetamines Screen Negative U Benzodiazepines Scrn Negative U Oth Cocaine Metabols Negative U Cannabinoids Screen Negative Alcohol, Quantitative Assessment & Plan - Assessment and Plan (Free Text) Assessment: 46 year old male with PMH depression, anxiety, Hep C, HTN?, presents for alcohol intoxication, depression: LLQ abdominal pain: likely musculoskeletal - CT abdomen and pelvis: No obstructing renal calculus or hydronephrosis. Correlate clinically to exclude infection. Please note evaluation for underlying visceral lesions/abnormalities limited without intravenous contrast. - Naproxen bid - tolerating regular diet well - Cont to monitor Alcohol Intoxication/withdrawal: - CIWA - Fall/seizure/aspiration precautions - Librium 50 mg PO given in ED - Ativan ab and prn. Will hold librium in setting of elevated LFTs. - Geodon prn - Banana bag - thiamine, folate, MVT - Cont to monitor Transaminitis: likely alcohol induced vs hepatitis C - AST/ALT 2:1 - ALP 157 elevated, lipase 391 - Tylenol level low - ABd US - Hepatitis panel - Avoid hepatotoxic agents - will keep NPO - GI consult. F/u recs. Depression: - UDS neg, salicylate, tylenol levels low. ETOH 297 - denies home meds - Psych consulted. F/u recs - denies suicidal/homicidal ideations PPX: Protonix, SCDs Diet: NPO Discussed with Dr Hernandez. - Date & Time Date: 06/08/17 Time: 00:18 <Chelsi Hernandez - Last Filed: 06/08/17 03:40> Results - Vital Signs Recent Vital Signs: Last Vital Signs Temp 98.1 F 06/07/17 23:36 Pulse 80 06/08/17 01:46 Resp 20 06/08/17 00:01 BP 152/100 H 06/07/17 23:36 Pulse Ox 96 06/07/17 21:48 - Labs Result Diagrams: 06/07/17 18:29 06/07/17 18:29 Attending/Attestation - Attestation I have personally seen and examined this patient.: Yes I have fully participated in the care of the patient.: Yes I have reviewed all pertinent clinical information: Yes Notes (Text): 06/08/17 03:39 Patient was seen when he was in the ER in [facility] room. Agree with history , physical examination, assessment and plan.
[2017-06-07 23:55] VITALS: RESP 20
[2017-06-08 06:10] LABS: BASO # 0.04 K/mm3 (0.0-2.0); BASO % 0.9 % (0.0-3.0); EOS # 0.2 (0.0-0.7); EOS % 4.7 % (1.5-5.0); GRAN # 2.69 (1.4-6.5); GRAN % 57.5 % (50.0-68.0); HEMOGLOBIN 14.9 g/dL (14.0-18.0); LYMPH # 1.2 (1.2-3.4); LYMPH % 25.6 % (22.0-35.0); MEAN CELL VOLUME 96.1 fl (80.0-105.0); MEAN CORPUSCULAR HEMOGLOBIN 33.9 pg (25.0-35.0); MEAN CORPUSCULAR HGB CONC 35.3 g/dl (31.0-37.0); MEAN PLATELET VOLUME 9.6 fl (7.0-11.0); MONO # 0.5 (0.1-0.6); MONO % 11.3 % (1.0-6.0); RBC 4.39 10^6/uL (3.5-6.1); RED CELL DISTRIBUTION WIDTH 12.2 % (11.5-14.5); WHITE BLOOD COUNT 4.7 10^3/ul (4.5-11.0)
[2017-06-08 06:28] VITALS: O2SAT 97
[2017-06-08 07:33] LABS: ALB/GLOB RATIO 1.1 (1.1-1.8); ALBUMIN 3.6 g/dL (3.0-4.8); ALT/SGPT 105 U/L (7-56); AST/SGOT 183 U/L (17-59); BLOOD UREA NITROGEN 6 mg/dL (7-21); CALCIUM 9.4 mg/dL (8.4-10.5); GFR AFRICAN-AMERICAN > 60; GFR NON-AFRICAN AMERICAN > 60
[2017-06-08] MEDS ORDERED: Multivitamin Therapeutic Tab PO SCH (08:00)
--- NOTE | 2017-06-08 09:09 | RAD ---
HISTORY: tremulous COMPARISON: 06/15/2012 FINDINGS: LUNGS: No active pulmonary disease. PLEURA: No significant pleural effusion identified, no pneumothorax apparent. CARDIOVASCULAR: Normal. OSSEOUS STRUCTURES: No significant abnormalities. VISUALIZED UPPER ABDOMEN: Normal. OTHER FINDINGS: None. IMPRESSION: No active disease.
--- NOTE | 2017-06-08 10:23 | US ---
HISTORY: elevated LFTs COMPARISON: None. TECHNIQUE: Sonographic evaluation of the abdomen. FINDINGS: LIVER: Measures cm. Increased echogenicity of the liver parenchyma. No mass. No intrahepatic bile duct dilatation. GALLBLADDER: Unremarkable. No gallstones. COMMON BILE DUCT: Measures mm. No stones. No dilatation. PANCREAS: Prominent pancreatic head. No duct dilatation. RIGHT KIDNEY: Measures cm. Normal echogenicity. No calculus, mass, or hydronephrosis. LEFT KIDNEY: Measures cm. Normal echogenicity. No calculus, mass, or hydronephrosis. SPLEEN: Normal in size and contour. No mass. AORTA: No aneurysmal dilatation. IVC: Unremarkable. OTHER FINDINGS: None. IMPRESSION: Fatty liver. Prominent pancreatic head ; recommend correlation contrast-enhanced thin-section CT scan through the pancreas.
[2017-06-08] MEDS ORDERED: Multivitamin (MVI) 10 ML, Thiamine 100 MG, Folic Acid 1 MG in Sodium Chloride 0.9% 1,00... IV ONE (11:21)
--- NOTE | 2017-06-08 11:35 | CP.PCM.PN ---
Addendum entered and electronically signed by Dhruv Bonilla DO 06/08/17 19:41: Patient attempted to leave AMA today. Patient still very tremulous and weak. Sinus pause was also noted this afternoon. Patient is an elopement risk. We will order 1:1 and f/u with psych recommendations tomorrow. Original Note: <Dhruv Bonilla - Last Filed: 06/08/17 15:40> Subjective - Date & Time of Evaluation Date of Evaluation: 06/08/17 Time of Evaluation: 11:34 - Subjective Subjective: Patient seen and examined at bedside. Patient reported being nauseous in the morning. Patient had one episode of non-bloody bilious vomiting in the afternoon. Patient continues to complain about left lateral pain which he states has not improved. Patient denies any palpitations, chest pain, abdominal pain, urinary symptoms, audio/visual hallucinations, or suicidal/ homicidal ideation. Objective - Vital Signs/Intake and Output Vital Signs (last 24 hours): Temp Pulse Resp BP Pulse Ox 98.2 F 74 20 162/98 H 97 06/08/17 06:00 06/08/17 06:00 06/08/17 06:00 06/08/17 06:00 06/08/17 06:00 Intake and Output: 06/08/17 06/08/17 06:59 18:59 Intake Total 840 Output Total 300 Balance 540 - Medications Medications: Current Medications Alprazolam (Xanax) 1 mg PO BID PRN; Protocol PRN Reason: Anxiety Multivitamins/Vitamin C 10 ml/Thiamine HCl 100 mg/ Folic Acid 1 mg/ Sodium Chloride 1,011.2 mls @ 100 mls/hr IV .Q10H7M ONE Stop: 06/08/17 21:27 Lisinopril (Zestril) 2.5 mg PO DAILY MATT Lorazepam (Ativan) 3 mg IVP Q4H MATT PRN Reason: Protocol Last Admin: 06/08/17 08:33 Dose: 3 mg Lorazepam (Ativan) 1 mg IVP Q6H PRN; Protocol PRN Reason: Symptoms of alcohol withdrawl Last Admin: 06/08/17 05:27 Dose: 1 mg Multivitamins (Thera Tab) 1 tab PO 0800 MATT Last Admin: 06/08/17 08:00 Dose: Not Given Nicotine (Nicoderm Cq) 1 patch TD DAILY [facility] Last Admin: 06/08/17 10:39 Dose: 1 patch Pantoprazole Sodium (Protonix Inj) 40 mg IVP DAILY [facility] Last Admin: 06/08/17 10:39 Dose: 40 mg Thiamine HCl (Vitamin B1 Tab) 100 mg PO DAILY MATT Last Admin: 06/08/17 10:39 Dose: 100 mg Ziprasidone (Geodon Inj) 20 mg IM ONCE PRN; Protocol PRN Reason: Agitation - Labs Labs: 06/08/17 05:50 06/08/17 05:50 PT 10.0 SECONDS (9.4-12.5) 06/07/17 18:29 INR 0.88 (0.93-1.08) L 06/07/17 18:29 APTT 31.3 Seconds (25.1-36.5) 06/07/17 18:29 - Constitutional Appears: Toxic, In Acute Distress - Head Exam Head Exam: ATRAUMATIC, NORMAL INSPECTION, NORMOCEPHALIC - Eye Exam Eye Exam: EOMI, Normal appearance. absent: Scleral icterus - ENT Exam ENT Exam: Mucous Membranes Moist - Respiratory Exam Respiratory Exam: Clear to Ausculation Bilateral - Cardiovascular Exam Cardiovascular Exam: +S1, +S2. absent: Tachycardia, JVD - GI/Abdominal Exam GI & Abdominal Exam: Soft. absent: Tenderness - Extremities Exam Extremities Exam: absent: Pedal Edema - Back Exam Back Exam: CVA tenderness (L), paraspinal tenderness. absent: CVA tenderness (R ) - Neurological Exam Neurological Exam: Alert, Oriented x3 Additional comments: Tremor. - Psychiatric Exam Psychiatric exam: absent: Homicidal Ideation, Suicidal Ideation - Skin Skin Exam: Dry, Intact, Normal Color, Warm Assessment and Plan - Assessment and Plan (Free Text) Assessment: 46 year old male with PMH depression, anxiety, Hep C, HTN?, presents for alcohol intoxication, depression Plan: Left Flank Pain Likely Musculoskeletal. CT abdomen and pelvis (Adm): No obstructing renal calculus or hydronephrosis. Correlate clinically to exclude infection. Please note evaluation for underlying visceral lesions/abnormalities limited without intravenous contrast. - Toradol 30 Q6H PRN - Consider Lidocaine patch. Alcohol Intoxication/withdrawal: - CIWA - Fall/seizure/aspiration precautions - Ativan 3 MATT and 2 PRN. Librium held due to elevated LFT's - Geodon prn - Banana bag - thiamine, folate, MVT - Cont to monitor Transaminitis (Improved) likely alcohol induced vs hepatitis C - Hepatitis panel: POSITIVE HEP C Antibody. Will confirm if patient is treated or untreated. - Avoid hepatotoxic agents - will keep NPO - GI consult. F/u recs. Depression: - UDS neg, salicylate, tylenol levels low. ETOH 297 - denies home meds - Psych consulted. F/u recs - denies suicidal/homicidal ideations PPX: Protonix, SCDs Diet: NPO Discussed with Attending (Dr. Radha De La Fuente) Dhruv Bonilla, PGY1 <Aletha De La Fuente - Last Filed: 06/09/17 11:49> Objective - Vital Signs/Intake and Output Vital Signs (last 24 hours): Temp Pulse Resp BP Pulse Ox 97.6 F 73 20 155/106 H 97 06/08/17 17:29 06/08/17 17:29 06/08/17 17:29 06/08/17 17:29 06/08/17 06:00 Intake and Output: 06/08/17 06/08/17 06:59 18:59 Intake Total 840 0 Output Total 300 800 Balance 540 -800 - Medications Medications: Current Medications Alprazolam (Xanax) 1 mg PO BID PRN; Protocol PRN Reason: Anxiety Multivitamins/Vitamin C 10 ml/Thiamine HCl 100 mg/ Folic Acid 1 mg/ Sodium Chloride 1,011.2 mls @ 100 mls/hr IV .Q10H7M ONE Stop: 06/08/17 21:27 Last Admin: 06/08/17 12:32 Dose: 100 mls/hr Ketorolac Tromethamine (Toradol) 30 mg IVP Q6H PRN PRN Reason: Pain, severe (8-10) Last Admin: 06/08/17 16:25 Dose: 30 mg Lisinopril (Zestril) 2.5 mg PO DAILY MATT Last Admin: 06/08/17 11:52 Dose: 2.5 mg Lorazepam (Ativan) 3 mg IVP Q4H MATT PRN Reason: Protocol Last Admin: 06/08/17 16:30 Dose: 3 mg Lorazepam (Ativan) 2 mg IVP Q6H PRN; Protocol PRN Reason: Symptoms of alcohol withdrawl Multivitamins (Thera Tab) 1 tab PO 0800 [facility] Last Admin: 06/08/17 08:00 Dose: Not Given Nicotine (Nicoderm Cq) 1 patch TD DAILY [facility] Last Admin: 06/08/17 10:39 Dose: 1 patch Ondansetron HCl (Zofran Inj) 4 mg IVP Q4H PRN PRN Reason: Nausea/Vomiting Last Admin: 06/08/17 16:25 Dose: 4 mg Pantoprazole Sodium (Protonix Inj) 40 mg IVP DAILY [facility] Last Admin: 06/08/17 10:39 Dose: 40 mg Thiamine HCl (Vitamin B1 Tab) 100 mg PO DAILY MATT Last Admin: 06/08/17 10:39 Dose: 100 mg Ziprasidone (Geodon Inj) 20 mg IM ONCE PRN; Protocol PRN Reason: Agitation - Labs Labs: 06/08/17 05:50 06/08/17 05:50 PT 10.0 SECONDS (9.4-12.5) 06/07/17 18:29 INR 0.88 (0.93-1.08) L 06/07/17 18:29 APTT 31.3 Seconds (25.1-36.5) 06/07/17 18:29 Attending/Attestation - Attestation I have personally seen and examined this patient.: Yes I have fully participated in the care of the patient.: Yes I have reviewed all pertinent clinical information, including history, physical exam and plan: Yes Notes (Text): I have seen and examined the patient at bedside. Agree with the above note with the following additions/ exceptions: Briefly this is 46 year old male with history of depression, anxiety, Hep C (known / untreated), HTN, non compliant with medications who presents for evaluation of left upper quadrant pain, alcohol intoxication and symptoms of depression. Lipase level was found to be elevated. CT scan result pending. Continue IV hydration. Patient was made NPO. Patient is upset and is asking for food. He also was threatening to leave AMA. Explained to the patient that he needs to stay in the hospital for IV hydration and needs bowel rest. GI consult appreciated. Agreed to keep patient npo. Continue CIWA protocol. Patient is tremulous, anxious and diaphoretic. Denies auditory or visual hallucinations or delirium. Continue ativan, geodon and banana bag. Transaminitis likely due to alcohol induced. UDS negative. Psych consult pending for depression. Patient denies homicidal or suicidal ideation. Upon discharge patient will follow up with Dr Chavira or Dr Anthony. Dr Aletha De La Fuente
--- NOTE | 2017-06-08 12:08 | CARD ---
APPROVED REPORT EKG Measurement Heart [id number] <Conclusion> Normal sinus rhythm Normal ECG
[2017-06-08 12:22] LABS: HDL CHOLESTEROL 106 mg/dL (29-60)
[2017-06-08 12:25] LABS: HEPATITIS B SURFACE AG Negative (NEGATIVE)
[2017-06-08 12:31] LABS: HEPATITIS A IGM NEGATIVE (NEGATIVE); HEPATITIS B CORE AB NEGATIVE (NEGATIVE)
[2017-06-08 12:33] LABS: LDL CHOLESTEROL 83 mg/dL (0-129)
[2017-06-08 13:47] LABS: HEPATITIS C ANTIBODY REACTIVE (NEGATIVE)
--- NOTE | 2017-06-08 14:01 | CARD ---
APPROVED REPORT EKG Measurement Heart [id number] <Conclusion> Normal sinus rhythm Normal ECG
[2017-06-08] MEDS ORDERED: Lidocaine 5% Patch TD ONE (19:52)
[2017-06-09 06:16] VITALS: BP 152/108; PULSE 64; TEMP 97.9
[2017-06-09 06:27] LABS: BASO # 0.03 K/mm3 (0.0-2.0); BASO % 0.6 % (0.0-3.0); EOS # 0.3 (0.0-0.7); EOS % 5.6 % (1.5-5.0); GRAN # 3.03 (1.4-6.5); GRAN % 60.1 % (50.0-68.0); HEMOGLOBIN 15.7 g/dL (14.0-18.0); LYMPH # 1.3 (1.2-3.4); LYMPH % 24.8 % (22.0-35.0); MEAN CELL VOLUME 95.1 fl (80.0-105.0); MEAN CORPUSCULAR HEMOGLOBIN 33.7 pg (25.0-35.0); MEAN CORPUSCULAR HGB CONC 35.4 g/dl (31.0-37.0); MEAN PLATELET VOLUME 9.7 fl (7.0-11.0); MONO # 0.5 (0.1-0.6); MONO % 8.9 % (1.0-6.0); RBC 4.66 10^6/uL (3.5-6.1); RED CELL DISTRIBUTION WIDTH 12.2 % (11.5-14.5)
[2017-06-09 07:08] LABS: ALB/GLOB RATIO 1.1 (1.1-1.8); ALBUMIN 3.7 g/dL (3.0-4.8); ALT/SGPT 95 U/L (7-56); AST/SGOT 145 U/L (17-59); BLOOD UREA NITROGEN 6 mg/dL (7-21); CALCIUM 9.7 mg/dL (8.4-10.5); GFR AFRICAN-AMERICAN > 60; GFR NON-AFRICAN AMERICAN > 60
[2017-06-09] MEDS ORDERED: Potassium Chloride 20 mEq ER Tab PO ONE (08:55)
--- NOTE | 2017-06-09 09:16 | CON ---
DATE: 06/08/2017 HISTORY OF PRESENT ILLNESS: This patient was seen and evaluated earlier today. This 46-year-old patient admitted with complaints of abdominal pain mainly left-sided abdominal pain, left upper quadrant area. This patient has history of depression, anxiety, chronic hepatitis C, hypertension. He mentioned that the pain in the left upper quadrant has been present for several months, now recently got worse, came to the ER. Patient has history of alcohol abuse. In the ER, he was found to have an elevated alcohol level of 297. Patient did have a CT done. No history of any diarrhea, no vomiting. PAST MEDICAL HISTORY: Other past medical history is significant as above. ALLERGIES: PATIENT IS ALLERGIC TO PENICILLIN. FAMILY HISTORY: Noncontributory. SOCIAL HISTORY: Positive for smoking about 1 pack per day for 30 years and also alcohol, nikita almost everyday. PHYSICAL EXAMINATION: GENERAL: Patient is lying on the bed, not in acute distress. VITAL SIGNS: Temperature is 98.2, blood pressure is 162/98, pulse 74, respirations 20 and O2 saturation 97%. HEENT: Atraumatic, anicteric. NECK: Supple. HEART: S1, S2 heard. LUNGS: Bilateral air entry present. ABDOMEN: Soft. Tenderness present in the left upper quadrant area. There is no rebound or guarding. EXTREMITIES: No cyanosis. No clubbing. NEUROLOGIC: Alert, oriented. Moves all the extremities. LABORATORY DATA: Hemoglobin is , hematocrit 42.2, WBC 4.7, platelets 137. Chemistries: AST of 183, ALT 105, alkaline phosphatase 139, BUN 6, creatinine 0.7 and lipase is 358. Patient did have an ultrasound scan of the abdomen done, which showed no gallstones. Common bile duct is normal. Patient had a CT scan of the abdomen and pelvis done with no IV or p.o. contrast, did not show any significant inflammatory changes. However, the CT was limited because of the lack of contrast. IMPRESSION: This is a 46-year-old patient with long history of alcohol abuse, admitted with: 1. Acute worsening of the left upper quadrant abdominal pain. Patient's alcohol level was 297 when he came in. The ultrasound showed no stones and CT done, limited study, did not show any significant inflammatory changes. Clinically, it is more suggestive of acute pancreatitis. The other differential diagnosis include peptic ulcer disease and erosive gastritis, and esophagitis also to be considered. 2. Impending delirium tremens. 3. Elevated liver function tests; may be related to drug induced; due to alcoholic hepatitis is also to be considered. RECOMMENDATIONS: 1. PPI. 2. IV hydration. 3. Close followup of the LFTs. Patient has a history of hepatitis C antibody positive. Would recommend PCR. Patient will be kept on n.p.o except liquid. Start the patient on a clear liquid diet. Thank you very much for allowing us to participate in the care of the patient. Alyssa Sauceda MD
--- NOTE | 2017-06-09 10:10 | CP.PCM.DIS ---
<Dhruv Bonilla - Last Filed: 06/09/17 10:41> Provider - Provider Date of Admission: 06/07/17 21:21 Attending physician: Aletha De La Fuente MD Consults: GI - Dr. Sauceda Psych - Dr. Casey Time Spent in preparation of Discharge (in minutes): 40 Diagnosis - Discharge Diagnosis (1) Alcohol withdrawal Status: Acute (2) Elevated liver enzymes Status: Acute (3) Flank pain Status: Acute (4) Alcohol intoxication Status: Acute Hospital Course - Lab Results Lab Results: Most Recent Lab Values WBC 5.0 10^3/ul (4.5-11.0) 06/09/17 05:30 RBC 4.66 10^6/uL (3.5-6.1) 06/09/17 05:30 Hgb 15.7 g/dL (14.0-18.0) 06/09/17 05:30 Hct 44.3 % (42.0-52.0) 06/09/17 05:30 MCV 95.1 fl (80.0-105.0) 06/09/17 05:30 MCH 33.7 pg (25.0-35.0) 06/09/17 05:30 MCHC 35.4 g/dl (31.0-37.0) 06/09/17 05:30 RDW 12.2 % (11.5-14.5) 06/09/17 05:30 Plt Count 149 10^3/uL (120.0-450.0) 06/09/17 05:30 MPV 9.7 fl (7.0-11.0) 06/09/17 05:30 Gran % 60.1 % (50.0-68.0) 06/09/17 05:30 Lymph % (Auto) 24.8 % (22.0-35.0) 06/09/17 05:30 [place] % (Auto) 8.9 % (1.0-6.0) H 06/09/17 05:30 Eos % (Auto) 5.6 % (1.5-5.0) H 06/09/17 05:30 Baso % (Auto) 0.6 % (0.0-3.0) 06/09/17 05:30 Gran # 3.03 (1.4-6.5) 06/09/17 05:30 Lymph # (Auto) 1.3 (1.2-3.4) 06/09/17 05:30 [place] # (Auto) 0.5 (0.1-0.6) 06/09/17 05:30 Eos # (Auto) 0.3 (0.0-0.7) 06/09/17 05:30 Baso # (Auto) 0.03 K/mm3 (0.0-2.0) 06/09/17 05:30 PT 10.0 SECONDS (9.4-12.5) 06/07/17 18:29 INR 0.88 (0.93-1.08) L 06/07/17 18:29 APTT 31.3 Seconds (25.1-36.5) 06/07/17 18:29 Sodium 137 mmol/L (132-148) 06/09/17 05:30 Potassium 3.4 mmol/L (3.6-5.0) L 06/09/17 05:30 Chloride 103 mmol/L (98-107) 06/09/17 05:30 Carbon Dioxide 26 mmol/L (21-33) 06/09/17 05:30 Anion Gap 12 (10-20) 06/09/17 05:30 BUN 6 mg/dL (7-21) L 06/09/17 05:30 Creatinine 0.7 mg/dl (0.8-1.5) L 06/09/17 05:30 Est GFR ( Amer) > 60 06/09/17 05:30 Est GFR (Non-Af Amer) > 60 06/09/17 05:30 Random Glucose 87 mg/dL (70-110) 06/09/17 05:30 Calcium 9.7 mg/dL (8.4-10.5) 06/09/17 05:30 Phosphorus 4.1 mg/dL (2.5-4.5) 06/09/17 05:30 Magnesium 1.9 mg/dL (1.7-2.2) 06/09/17 05:30 Total Bilirubin 1.6 mg/dL (0.2-1.3) H 06/09/17 05:30 AST 145 U/L (17-59) H D 06/09/17 05:30 ALT 95 U/L (7-56) H 06/09/17 05:30 Alkaline Phosphatase 109 U/L (38-126) 06/09/17 05:30 Lactate Dehydrogenase 838 U/L (333-699) H 06/07/17 17:30 Total Creatine Kinase 107 U/L (35-230) 06/07/17 17:30 Troponin I < 0.01 ng/mL 06/07/17 17:30 Total Protein 7.2 g/dL (5.8-8.3) 06/09/17 05:30 Albumin 3.7 g/dL (3.0-4.8) 06/09/17 05:30 Globulin 3.5 gm/dL 06/09/17 05:30 Albumin/Globulin Ratio 1.1 (1.1-1.8) 06/09/17 05:30 Triglycerides 76 mg/dL (35-160) 06/08/17 12:00 Cholesterol 201 mg/dL (130-200) H 06/08/17 12:00 LDL Cholesterol Direct 83 mg/dL (0-129) 06/08/17 12:00 HDL Cholesterol 106 mg/dL (29-60) H 06/08/17 12:00 Amylase 63 U/L (35-125) 06/07/17 18:29 Lipase 358 U/L (23-300) H 06/08/17 05:50 Urine Color Yellow (YELLOW) 06/07/17 18:29 Urine Appearance Clear (CLEAR) 06/07/17 18:29 Urine pH 5.5 (4.7-8.0) 06/07/17 18:29 Ur Specific [place] 1.010 (1.005-1.035) 06/07/17 18:29 Urine Protein Negative mg/dL (<30 mg/dL) 06/07/17 18:29 Urine Glucose (UA) Negative mg/dL (NEGATIVE) 06/07/17 18:29 Urine Ketones Negative mg/dL (NEGATIVE) 06/07/17 18:29 Urine Blood Negative (NEGATIVE) 06/07/17 18:29 Urine Nitrate Negative (NEGATIVE) 06/07/17 18:29 Urine Bilirubin Negative (NEGATIVE) 06/07/17 18:29 Urine Urobilinogen 0.2 E.U./dL (<1 E.U./dL) 06/07/17 18:29 Ur Leukocyte Esterase Negative [place]/uL (NEGATIVE) 06/07/17 18:29 Salicylates < 1 mg/dL (2.0-20.0) L 06/07/17 18:29 Urine Opiates Screen Negative (NEGATIVE) 06/07/17 18:29 Urine Methadone Screen Negative (NEGATIVE) 06/07/17 18:29 Acetaminophen < 10.0 ug/ml (10.0-20.0) L 06/07/17 18:29 Ur Barbiturates Screen Negative (NEGATIVE) 06/07/17 18:29 Ur Phencyclidine Scrn Negative (NEGATIVE) 06/07/17 18:29 Ur Amphetamines Screen Negative (NEGATIVE) 06/07/17 18:29 U Benzodiazepines Scrn Negative (NEGATIVE) 06/07/17 18:29 U Oth Cocaine Metabols Negative (NEGATIVE) 06/07/17 18:29 U Cannabinoids Screen Negative (NEGATIVE) 06/07/17 18:29 Alcohol, Quantitative 297 mg/dL (0-10) H 06/07/17 17:30 Hepatitis A IgM Ab Negative (NEGATIVE) 06/08/17 06:30 Hep Bs Antigen Negative (NEGATIVE) 06/08/17 06:30 Hep B Core IgM Ab Negative (NEGATIVE) 06/08/17 06:30 Hepatitis C Antibody Reactive (NEGATIVE) 06/08/17 06:30 - Hospital Course Hospital Course: This patient is a 46 year old male with a PMH of depression, anxiety, Hepatitis C, and hypertension who was admitted for evaluation and treatment of Left flank pain and alcohol intoxication/withdrawal. Patient presented to the ED with stable vitals and alcohol level of 297. Liver enzymes were elevated and began downtrending. UA was unremarkable. Hepatitis Panel returned positive for Hepatitis C antibody. CT abd/pelvis was negative for inflammatory/infectious etiology. Abdominal US read "Fatty liver. Prominent pancreatic head ; recommend correlation contrast-enhanced thin-section CT scan through the pancreas." GI and and Psych were consulted on the case. Patient wished to leave yesterday but agreed to stay to see psych and for further testing. This morning patient wanted to leave AMA once again. Benefits of staying for inpatient treatment were explained to the patient including - further treatment for alcohol withdrawal/intoxication, pain control, evaluation by psychiatrist and further testing for pancreatic head lesion. Risk of leaving were explained to the patient including risk of arrythmia, [place], Seizure, and delay of treatment for possible malignancy. Patient left against medical advice. Patient has been given a card to follow up at [facility] health clinic. He was told to follow up as soon as possible. Patient was also told to return to the ED if symptoms returned or worsened. Dhruv Bonilla, PGY1 Discharge Exam - Head Exam Head Exam: ATRAUMATIC, NORMAL INSPECTION, NORMOCEPHALIC - Eye Exam Eye Exam: Conjunctival injection - ENT Exam ENT Exam: Mucous Membranes Moist - Respiratory Exam Respiratory Exam: Clear to PA & Lateral. absent: Accessory Muscle Use, Rales, Rhonchi, Wheezes - Cardiovascular Exam Cardiovascular Exam: RRR, +S1, +S2 - GI/Abdominal Exam GI & Abdominal Exam: Normal Bowel Sounds, Soft. absent: Tenderness - Back Exam Back exam: absent: CVA tenderness (L), CVA tenderness (R) - Neurological Exam Neurological exam: Alert, Oriented x3 Additional comments: tremulous (Improved from yesterday) - Skin Skin Exam: Normal Color, Warm Discharge Plan - Follow Up Plan Condition: SERIOUS Disposition: AGAINST MEDICAL ADVICE <Aletha De La Fuente - Last Filed: 06/09/17 12:10> Provider - Provider Date of Admission: 06/07/17 21:21 Attending physician: Aletha De La Fuente MD Hospital Course - Lab Results Lab Results: Most Recent Lab Values WBC 5.0 10^3/ul (4.5-11.0) 06/09/17 05:30 RBC 4.66 10^6/uL (3.5-6.1) 06/09/17 05:30 Hgb 15.7 g/dL (14.0-18.0) 06/09/17 05:30 Hct 44.3 % (42.0-52.0) 06/09/17 05:30 MCV 95.1 fl (80.0-105.0) 06/09/17 05:30 MCH 33.7 pg (25.0-35.0) 06/09/17 05:30 MCHC 35.4 g/dl (31.0-37.0) 06/09/17 05:30 RDW 12.2 % (11.5-14.5) 06/09/17 05:30 Plt Count 149 10^3/uL (120.0-450.0) 06/09/17 05:30 MPV 9.7 fl (7.0-11.0) 06/09/17 05:30 Gran % 60.1 % (50.0-68.0) 06/09/17 05:30 Lymph % (Auto) 24.8 % (22.0-35.0) 06/09/17 05:30 [place] % (Auto) 8.9 % (1.0-6.0) H 06/09/17 05:30 Eos % (Auto) 5.6 % (1.5-5.0) H 06/09/17 05:30 Baso % (Auto) 0.6 % (0.0-3.0) 06/09/17 05:30 Gran # 3.03 (1.4-6.5) 06/09/17 05:30 Lymph # (Auto) 1.3 (1.2-3.4) 06/09/17 05:30 [place] # (Auto) 0.5 (0.1-0.6) 06/09/17 05:30 Eos # (Auto) 0.3 (0.0-0.7) 06/09/17 05:30 Baso # (Auto) 0.03 K/mm3 (0.0-2.0) 06/09/17 05:30 PT 10.0 SECONDS (9.4-12.5) 06/07/17 18:29 INR 0.88 (0.93-1.08) L 06/07/17 18:29 APTT 31.3 Seconds (25.1-36.5) 06/07/17 18:29 Sodium 137 mmol/L (132-148) 06/09/17 05:30 Potassium 3.4 mmol/L (3.6-5.0) L 06/09/17 05:30 Chloride 103 mmol/L (98-107) 06/09/17 05:30 Carbon Dioxide 26 mmol/L (21-33) 06/09/17 05:30 Anion Gap 12 (10-20) 06/09/17 05:30 BUN 6 mg/dL (7-21) L 06/09/17 05:30 Creatinine 0.7 mg/dl (0.8-1.5) L 06/09/17 05:30 Est GFR ( Amer) > 60 06/09/17 05:30 Est GFR (Non-Af Amer) > 60 06/09/17 05:30 Random Glucose 87 mg/dL (70-110) 06/09/17 05:30 Calcium 9.7 mg/dL (8.4-10.5) 06/09/17 05:30 Phosphorus 4.1 mg/dL (2.5-4.5) 06/09/17 05:30 Magnesium 1.9 mg/dL (1.7-2.2) 06/09/17 05:30 Total Bilirubin 1.6 mg/dL (0.2-1.3) H 06/09/17 05:30 AST 145 U/L (17-59) H D 06/09/17 05:30 ALT 95 U/L (7-56) H 06/09/17 05:30 Alkaline Phosphatase 109 U/L (38-126) 06/09/17 05:30 Lactate Dehydrogenase 838 U/L (333-699) H 06/07/17 17:30 Total Creatine Kinase 107 U/L (35-230) 06/07/17 17:30 Troponin I < 0.01 ng/mL 06/07/17 17:30 Total Protein 7.2 g/dL (5.8-8.3) 06/09/17 05:30 Albumin 3.7 g/dL (3.0-4.8) 06/09/17 05:30 Globulin 3.5 gm/dL 06/09/17 05:30 Albumin/Globulin Ratio 1.1 (1.1-1.8) 06/09/17 05:30 Triglycerides 76 mg/dL (35-160) 06/08/17 12:00 Cholesterol 201 mg/dL (130-200) H 06/08/17 12:00 LDL Cholesterol Direct 83 mg/dL (0-129) 06/08/17 12:00 HDL Cholesterol 106 mg/dL (29-60) H 06/08/17 12:00 Amylase 63 U/L (35-125) 06/07/17 18:29 Lipase 358 U/L (23-300) H 06/08/17 05:50 Urine Color Yellow (YELLOW) 06/07/17 18:29 Urine Appearance Clear (CLEAR) 06/07/17 18:29 Urine pH 5.5 (4.7-8.0) 06/07/17 18:29 Ur Specific [place] 1.010 (1.005-1.035) 06/07/17 18:29 Urine Protein Negative mg/dL (<30 mg/dL) 06/07/17 18:29 Urine Glucose (UA) Negative mg/dL (NEGATIVE) 06/07/17 18:29 Urine Ketones Negative mg/dL (NEGATIVE) 06/07/17 18:29 Urine Blood Negative (NEGATIVE) 06/07/17 18:29 Urine Nitrate Negative (NEGATIVE) 06/07/17 18:29 Urine Bilirubin Negative (NEGATIVE) 06/07/17 18:29 Urine Urobilinogen 0.2 E.U./dL (<1 E.U./dL) 06/07/17 18:29 Ur Leukocyte Esterase Negative [place]/uL (NEGATIVE) 06/07/17 18:29 Salicylates < 1 mg/dL (2.0-20.0) L 06/07/17 18:29 Urine Opiates Screen Negative (NEGATIVE) 06/07/17 18:29 Urine Methadone Screen Negative (NEGATIVE) 06/07/17 18:29 Acetaminophen < 10.0 ug/ml (10.0-20.0) L 06/07/17 18:29 Ur Barbiturates Screen Negative (NEGATIVE) 06/07/17 18:29 Ur Phencyclidine Scrn Negative (NEGATIVE) 06/07/17 18:29 Ur Amphetamines Screen Negative (NEGATIVE) 06/07/17 18:29 U Benzodiazepines Scrn Negative (NEGATIVE) 06/07/17 18:29 U Oth Cocaine Metabols Negative (NEGATIVE) 06/07/17 18:29 U Cannabinoids Screen Negative (NEGATIVE) 06/07/17 18:29 Alcohol, Quantitative 297 mg/dL (0-10) H 06/07/17 17:30 Hepatitis A IgM Ab Negative (NEGATIVE) 06/08/17 06:30 Hep Bs Antigen Negative (NEGATIVE) 06/08/17 06:30 Hep B Core IgM Ab Negative (NEGATIVE) 06/08/17 06:30 Hepatitis C Antibody Reactive (NEGATIVE) 06/08/17 06:30 Attending/Attestation - Attestation I have personally seen and examined this patient.: Yes I have fully participated in the care of the patient.: Yes I have reviewed all pertinent clinical information, including history, physical exam and plan: Yes Notes (Text): I have seen and examined the patient at bedside. Agree with the above note with the following additions/ exceptions: Briefly this is 46 year old male with history of depression, anxiety, Hep C (known / untreated), HTN, non compliant with medications who presents for evaluation of left upper quadrant pain, alcohol intoxication and symptoms of depression. Lipase level was found to be elevated. High suspicion of acute alcohol induced pancreatitis vs GERD. CT scan result revealed prominence of pancreatic head. Pancreas CT recommended however patient states that he came here for abdominal pain which has resolved. He wants to leave [facility]. He is not agreeable for CT pancreas. Refusing to wait for CT abdomen report. Patient is upset and is asking for food. We advised the patient that we will advance the diet today however he is not willing to stay in the hospital. Explained to the patient that he needs to stay in the hospital for IV hydration and needs bowel rest. He also needs ativan tapering but patient is not agreeable to change his mind. He is alert, awake, oriented to time, place and person. He has mild tremors and denies anxiety, headache, nausea , vomiting, diaphoresis, visual or auditory hallucinations. GI consult appreciated. Transaminitis likely due to alcohol induced. UDS negative. Psych consult still pending for depression. Patient denies homicidal or suicidal ideation. Upon discharge patient will follow up with Dr Chavira or Dr Anthony. 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 Patient left AMA. Risk of signing AMA explained in detail including recurrent pancreatitis, sepsis, septic shock, dehydration, seizure, stroke, fall, delirium tremons, electrolyte imbalance, metabolic abnormalities and even . Patient verbalized understanding. Dr Aletha De La Fuente
[2017-06-09] MEDS ORDERED: Lidocaine 5% Patch TD ONE (19:52)
== END 2017-06-09 10:08 | disposition left against medical advice (07) | DRG 749 ==
LOC: ED 16:57 → ERH 21:21 → 2RNO 23:10
PROVIDERS: ADMIT Internal Medicine; ATTEND Hospitalist
DX: F10.239 Alcohol dependence with withdrawal, unspecified (principal); B18.2 Chronic viral hepatitis C; Y90.8 Blood alcohol level of 240 mg/100 ml or more; I10 Essential (primary) hypertension; F32.9 Major depressive disorder, single episode, unspecified; F41.9 Anxiety disorder, unspecified; F17.210 Nicotine dependence, cigarettes, uncomplicated; R10.12 Left upper quadrant pain; R10.32 Left lower quadrant pain; Z88.0 Allergy status to penicillin; Z91.14 Patient's other noncompliance with medication regimen

== ENCOUNTER 2017-06-10 08:01 | Emergency (ER) | payer MEDICAID ==
[2017-06-10 08:02] VITALS: BMI 26.3
[2017-06-10 08:17] VITALS: RESP 18
--- NOTE | 2017-06-10 08:20 | ED PDOC ---
Arrival/HPI - General Chief Complaint: Back Pain Time Seen by Provider: 06/10/17 08:11 Historian: Patient - History of Present Illness Narrative History of Present Illness (Text): 06/10/17 08:19 A 46 year old male, whose past medical history includes hypertension, hepatitis c, depression, anxiety, and alcohol abuse, presents to the emergency department complaining of left back pain. Patient signed out against medical advise from the hospital yesterday. He was recommended a CT of his pancreas to rule out pancreatic cancer. Patient admits to drinking alcohol today. Patient denies any trauma, fever, chills, nausea, vomiting, abdominal pain, chest pain, shortness of breath, headache, dizziness, suicidal ideation, homicidal ideation or any other complaints. Past Medical History - Provider Review Nursing Documentation Reviewed: Yes - Past History Past History: No Previous - Infectious Disease Hx of Infectious Diseases: None - Tetanus Immunization Tetanus Immunization: Unknown, Up to Date - Past Medical History Past Medical History: No Previous - Cardiac Hx Hypertension: Yes - Pulmonary Hx Respiratory Disorders: No - Neurological Hx Neurological Disorder: No - HEENT Hx HEENT Disorder: No - Renal Hx Renal Disorder: No - Endocrine/Metabolic Hx Endocrine Disorders: No - Hematological/Oncological Hx Blood Disorders: No - Integumentary Hx Dermatological Disorder: No - Musculoskeletal/Rheumatological Hx Musculoskeletal Disorders: Yes Hx Back Pain: Yes Hx Falls: Yes Other/Comment: CHRONIC BACK PAIN - Gastrointestinal Hx Gastrointestinal Disorders: No - Genitourinary/Gynecological Hx Genitourinary Disorders: No - Psychiatric Hx Psychophysiologic Disorder: Yes Hx Depression: Yes Hx Substance Use: No Other/Comment: Past drug user - Past Surgical History Past Surgical History: No Previous - Anesthesia Hx Anesthesia: No Hx Anesthesia Reactions: No Hx Malignant Hyperthermia: No - Suicidal Assessment Feels Threatened In Home Enviroment: No Family/Social History - Physician Review Nursing Documentation Reviewed: Yes Family/Social History: No Known Family HX Smoking Status: Heavy Smoker > 10 Cigarettes Daily Hx Alcohol Use: Yes (beer daily) Frequency of alcohol use: Daily Hx Substance Use: No Substance used: COCAINE/IV DRUG USE HEROIN Hx Substance Use Treatment: No Allergies/Home Meds Allergies/Adverse Reactions: Allergies Penicillins Allergy (Verified 06/10/17 08:14) RASH pentazocine lactate [From [place]win] Allergy (Verified 06/10/17 08:14) ANAPHYLAXIS Home Medications: Home Meds Medication Instructions Recorded Confirmed No Known Home Med 06/10/17 06/10/17 Review of Systems - Review of Systems Systems not reviewed;Unavailable: Intoxicated Physical Exam Vital Signs Reviewed: Yes Vital Signs Temp Pulse Resp BP Pulse Ox 06/10/17 10:30 87 18 135/87 100 06/10/17 08:17 97.6 F 95 H 18 147/111 H 99 Temperature: Afebrile Blood Pressure: Hypertensive Pulse: Tachycardic Respiratory Rate: Normal Appearance: Positive for: Other (Intoxicated male, smells of alcohol) - Systems Exam Head: Present: Atraumatic, Normocephalic Pupils: Present: PERRL Extroacular Muscles: Present: EOMI Conjunctiva: Present: Normal Mouth: Present: Moist Mucous Membranes, Other (Alcohol to breath) Neck: Present: Normal Range of Motion Respiratory/Chest: Present: Clear to Auscultation, Good Air Exchange. No: Respiratory Distress, Accessory Muscle Use Cardiovascular: Present: Regular Rate and Rhythm, Normal S1, S2. No: Murmurs Abdomen: No: Tenderness, Distention, Peritoneal Signs Upper Extremity: Present: Normal Inspection, Normal ROM. No: Cyanosis, Edema Lower Extremity: Present: Normal Inspection, Normal ROM. No: Edema Skin: Present: Warm, Dry, Normal Color. No: Rashes Psychiatric: Present: Intoxicated Medical Decision Making ED Course and Treatment: 06/10/17 08:19 Impression: A 46 year old intoxicated male with left back pain. Plan: -- Pancreatic CT -- Labs -- Urinalysis -- Reassess and disposition Progress Notes: Report Date : 06/10/2017 10:52:26 PROCEDURE: CT Abdomen with and without intravenous contrast Dictator : Mitesh Singletary MD IMPRESSION: Unremarkable pre and post contrast enhanced CT of the abdomen. - Lab Interpretations Lab Results: 06/10/17 10:00 06/10/17 10:00 Lab Results 06/10/17 10:00: Alcohol, Quantitative 163 H 06/10/17 10:00: Urine Opiates Screen Negative, Urine Methadone Screen Negative, Ur Barbiturates Screen Negative, Ur Phencyclidine Scrn Negative, Ur Amphetamines Screen Negative, U Benzodiazepines Scrn Positive, U Oth Cocaine Metabols Negative, U Cannabinoids Screen Negative 06/10/17 10:00: Sodium 145, Potassium 3.5 L, Chloride 105, Carbon Dioxide 26, Anion Gap 17, BUN 9, Creatinine 0.8, Est GFR ( Amer) > 60, Est GFR (Non- Af Amer) > 60, Random Glucose 82, Calcium 9.3, Total Bilirubin 0.5, Direct Bilirubin 0.4, AST 217 H D, ALT 130 H, Alkaline Phosphatase 114, Total Protein 8.0, Albumin 4.3, Globulin 3.7, Albumin/Globulin Ratio 1.2, Lipase 243 06/10/17 10:00: Urine Color Yellow, Urine Appearance Clear, Urine pH 6.0, Ur Specific [place] 1.010, Urine Protein Negative, Urine Glucose (UA) 100 H, Urine Ketones Negative, Urine Blood Negative, Urine Nitrate Negative, Urine Bilirubin Negative, Urine Urobilinogen 1.0 H, Ur Leukocyte Esterase Negative 06/10/17 10:00: PT 10.3, INR 0.90 L 06/10/17 10:00: WBC 4.9, RBC 4.73, Hgb 16.2, Hct 45.7, MCV 96.6, MCH 34.2, MCHC 35.4, RDW 12.3, Plt Count 150, MPV 9.4, Gran % 65.3, Lymph % (Auto) 22.6, [place] % (Auto) 8.8 H, Eos % (Auto) 2.5, Baso % (Auto) 0.8, Gran # 3.17, Lymph # (Auto ) 1.1 L, [place] # (Auto) 0.4, Eos # (Auto) 0.1, Baso # (Auto) 0.04 I have reviewed the lab results: Yes - RAD Interpretation Radiology Orders: 06/10/17 08:21 PANCREATIC PROTOCOL [CT] Stat - Scribe Statement The provider has reviewed the documentation as recorded by the Scribashley Connolly Provider Scribe Attestation: All medical record entries made by the Scribe were at my direction and personally dictated by me. I have reviewed the chart and agree that the record accurately reflects my personal performance of the history, physical exam, medical decision making, and the department course for this patient. I have also personally directed, reviewed, and agree with the discharge instructions and disposition. Disposition/Present on Arrival - Present on Arrival Any Indicators Present on Arrival: No History of DVT/PE: No History of Uncontrolled Diabetes: No Urinary Catheter: No History of Decub. Ulcer: No History Surgical Site Infection Following: None - Disposition Have Diagnosis and Disposition been Completed?: Yes Diagnosis: Alcoholic gastritis, Abdominal pain, Alcohol use Disposition: HOME/ ROUTINE Disposition Time: 11:42 Isolation: Airborne Patient Plan: Discharge Condition: GOOD Discharge Instructions (ExitCare): Alcohol Use - When Is Drinking a Problem? Additional Instructions: Mr Jiang - Your CT scan did not show any evidence of cancer. Your labs are stable. I am certain that your stomach pain is coming from using alcohol. We did not find any narcotics or street drugs in your system today at all. Return to us if worse or any problems. Cut back or stop the alcohol. Barrett- Dr. Jeffrey Paris Forms: [employer] ([place])
[2017-06-10 10:04] LABS: BASO # 0.04 K/mm3 (0.0-2.0); BASO % 0.8 % (0.0-3.0); EOS # 0.1 (0.0-0.7); EOS % 2.5 % (1.5-5.0); GRAN # 3.17 (1.4-6.5); GRAN % 65.3 % (50.0-68.0); HEMOGLOBIN 16.2 g/dL (14.0-18.0); LYMPH # 1.1 (1.2-3.4); LYMPH % 22.6 % (22.0-35.0); MEAN CELL VOLUME 96.6 fl (80.0-105.0); MEAN CORPUSCULAR HEMOGLOBIN 34.2 pg (25.0-35.0); MEAN CORPUSCULAR HGB CONC 35.4 g/dl (31.0-37.0); MEAN PLATELET VOLUME 9.4 fl (7.0-11.0); MONO # 0.4 (0.1-0.6); MONO % 8.8 % (1.0-6.0); RBC 4.73 10^6/uL (3.5-6.1); RED CELL DISTRIBUTION WIDTH 12.3 % (11.5-14.5); WHITE BLOOD COUNT 4.9 10^3/ul (4.5-11.0)
[2017-06-10 10:06] LABS: URINE BILIRUBIN NEGATIVE (NEGATIVE); URINE BLOOD NEGATIVE (NEGATIVE); URINE GLUCOSE (UA) 100 mg/dL (NEGATIVE); URINE LEUKOCYTE ESTERASE NEGATIVE Leu/uL (NEGATIVE); URINE PROTEIN NEGATIVE mg/dL (<30 mg/dL)
[2017-06-10 10:08] LABS: URINE APPEARANCE CLEAR (CLEAR); URINE COLOR YELLOW (YELLOW)
[2017-06-10 10:15] LABS: INR 0.9 (0.93-1.08); PROTHROMBIN TIME 10.3 SECONDS (9.4-12.5)
[2017-06-10 10:27] LABS: ALB/GLOB RATIO 1.2 (1.1-1.8); ALBUMIN 4.3 g/dL (3.0-4.8); ALT/SGPT 130 U/L (7-56); AST/SGOT 217 U/L (17-59); BILIRUBIN,DIRECT 0.4 mg/dL (0.0-0.4); BLOOD UREA NITROGEN 9 mg/dL (7-21); CALCIUM 9.3 mg/dL (8.4-10.5); GFR AFRICAN-AMERICAN > 60; GFR NON-AFRICAN AMERICAN > 60; LIPASE 243 U/L (23-300)
--- NOTE | 2017-06-10 10:54 | CT ---
PROCEDURE: CT Abdomen with and without intravenous contrast HISTORY: Pancreatic Cancer vs PancreatitisChronic Alcohol COMPARISON: None. TECHNIQUE: Axial images of the abdomen from lung bases to iliac crest with and without intravenous contrast enhancement. Coronal and sagittal reformats generated. Oral contrast also administered. This CT exam was performed using one or more of the following dose reduction techniques: Automated exposure control, adjustment of the mA and/or kV according to patient size, and/or use of iterative reconstruction technique. Contrast dose: 150 cc of Omni 350 Radiation dose: Total exam DLP = 469 mGy-cm. FINDINGS: LOWER THORAX: Unremarkable. LIVER: Unremarkable. No gross lesion or ductal dilatation. GALLBLADDER AND BILE DUCTS: Unremarkable. PANCREAS: Unremarkable. No gross lesion or ductal dilatation. SPLEEN: Unremarkable. ADRENALS: Unremarkable. No mass. KIDNEYS AND URETERS: Unremarkable. No hydronephrosis. No solid mass. VASCULATURE: Unremarkable. No aortic aneurysm. BOWEL: Unremarkable. No obstruction. No gross mural thickening. PERITONEUM: Unremarkable. No free fluid. No free air. LYMPH NODES: Unremarkable. No enlarged lymph nodes. BONES: No acute fracture. OTHER FINDINGS: None. IMPRESSION: Unremarkable pre and post contrast enhanced CT of the abdomen.
[2017-06-10 10:56] LABS: BARBITURATES, UR NEGATIVE (NEGATIVE); BENZODIAZEPINES, UR POSITIVE (NEGATIVE); OPIATES, UR NEGATIVE (NEGATIVE); PHENCYCLIDINE, UR NEGATIVE (NEGATIVE)
[2017-06-10 10:57] VITALS: O2SAT 100
[2017-06-10 12:09] VITALS: BP 140/85; PULSE 90; TEMP 98.1
== END 2017-06-10 12:10 | disposition home or self-care (01) ==
LOC: ED 08:01
DX: K29.20 Alcoholic gastritis without bleeding (principal); F10.10 Alcohol abuse, uncomplicated; Y90.6 Blood alcohol level of 120-199 mg/100 ml; R10.9 Unspecified abdominal pain; I10 Essential (primary) hypertension; F17.210 Nicotine dependence, cigarettes, uncomplicated
CPT/HCPCS: 74177; 80053; 80320; 80324; 80345; 80346; 80349; 80353; 80358; 80361; 81003; 82248; 83690; 83992; 85025; 85610; 99283; Q9967

== ENCOUNTER 2017-08-05 17:57 | Inpatient (IN) | payer MEDICAID, OTHER ==
--- NOTE | 2017-08-05 18:22 | ED PDOC ---
Arrival/HPI <Wilber Story - Last Filed: 08/06/17 05:17> - General Historian: Patient - History of Present Illness Time/Duration: Other (see hpi) Context: Home <Brandon Mckee - Last Filed: 08/10/17 12:29> - General Time Seen by Provider: 08/05/17 18:18 - History of Present Illness Narrative History of Present Illness (Text): 08/05/17 18:21 This 46 yo male with pmh alcohol dependence, presents to this ED c/o suicidal ideation, and homicidal ideation. Patient admits drinking today. Patient stated feeling depressed x 3 months since his . Patient denies sob, cp, abdominal pain or other somatic complains. (Brandon Mckee) Past Medical History - Provider Review Nursing Documentation Reviewed: Yes - Past History Past History: No Previous - Infectious Disease Hx of Infectious Diseases: None - Tetanus Immunization Tetanus Immunization: Unknown, Up to Date - Past Medical History Past Medical History: No Previous - Cardiac Hx Hypertension: Yes - Pulmonary Hx Respiratory Disorders: No - Neurological Hx Neurological Disorder: No - HEENT Hx HEENT Disorder: No - Renal Hx Renal Disorder: No - Endocrine/Metabolic Hx Endocrine Disorders: No - Hematological/Oncological Hx Blood Disorders: No - Integumentary Hx Dermatological Disorder: No - Musculoskeletal/Rheumatological Hx Musculoskeletal Disorders: Yes Hx Back Pain: Yes Hx Falls: Yes Other/Comment: CHRONIC BACK PAIN - Gastrointestinal Hx Gastrointestinal Disorders: No - Genitourinary/Gynecological Hx Genitourinary Disorders: No - Psychiatric Hx Psychophysiologic Disorder: Yes Hx Depression: Yes Hx Substance Use: No Other/Comment: Past drug user - Past Surgical History Past Surgical History: No Previous - Anesthesia Hx Anesthesia: No Hx Anesthesia Reactions: No Hx Malignant Hyperthermia: No - Suicidal Assessment Feels Threatened In Home Enviroment: No <Brandon Mckee - Last Filed: 08/10/17 12:29> Family/Social History - Physician Review Nursing Documentation Reviewed: Yes Family/Social History: Other (noncontributory) Smoking Status: Heavy Smoker > 10 Cigarettes Daily Hx Alcohol Use: Yes (beer daily) Hx Substance Use: No Substance used: COCAINE/IV DRUG USE HEROIN Hx Substance Use Treatment: No <Brandon Mckee - Last Filed: 08/10/17 12:29> Allergies/Home Meds <Wilber Story - Last Filed: 08/06/17 05:17> <Brandon Mckee - Last Filed: 08/10/17 12:29> Allergies/Adverse Reactions: Allergies Penicillins Allergy (Verified 06/10/17 08:14) RASH pentazocine lactate [From Talwin] Allergy (Verified 06/10/17 08:14) ANAPHYLAXIS Home Medications: Home Meds Medication Instructions Recorded Confirmed Acetaminophen/Oxycodone Hydr 1 tab PO QID 08/05/17 08/06/17 [Oxycodone and Acetaminophen 325 mg-2.5 mg] Alprazolam [Xanax] 2 mg PO QID 08/05/17 08/06/17 Review of Systems - Review of Systems Constitutional: Normal. absent: Fatigue, Weight Change, Fevers Eyes: Normal ENT: Normal Respiratory: Normal. absent: SOB, Cough Cardiovascular: Normal. absent: Chest Pain Gastrointestinal: Normal. absent: Abdominal Pain, Nausea, Vomiting Genitourinary Male: Normal. absent: Dysuria, Frequency, Hematuria Musculoskeletal: Normal, Back Pain (chronic baclk pain) Skin: Normal Neurological: Normal. absent: Headache, Dizziness, Focal Weakness, Gait Changes , Disequilibrium Endocrine: Normal Hemo/Lymphatic: Normal Psychiatric: Depression, Suicidal Ideation, Other (see hpi) <Brandon Mckee - Last Filed: 08/10/17 12:29> Physical Exam Temperature: Afebrile Blood Pressure: Normal Pulse: Regular Respiratory Rate: Normal Appearance: Positive for: Well-Appearing, Non-Toxic, Comfortable Pain Distress: None Mental Status: Positive for: Alert and Oriented X 3 - Systems Exam Head: Present: Atraumatic, Normocephalic Pupils: Present: PERRL Extroacular Muscles: Present: EOMI Conjunctiva: Present: Normal Mouth: Present: Moist Mucous Membranes Neck: Present: Normal Range of Motion Respiratory/Chest: Present: Clear to Auscultation, Good Air Exchange. No: Respiratory Distress, Accessory Muscle Use Cardiovascular: Present: Regular Rate and Rhythm, Normal S1, S2. No: Murmurs Abdomen: No: Tenderness, Distention, Peritoneal Signs Back: Present: Normal Inspection Upper Extremity: Present: Normal Inspection. No: Cyanosis, Edema Lower Extremity: Present: Normal Inspection. No: Edema Neurological: Present: GCS=15, CN II-XII Intact, Speech Normal Skin: Present: Warm, Dry, Normal Color. No: Rashes Psychiatric: Present: Alert, Oriented x 3, Depressed Mood, Suicidal Ideation, Homicidal Ideation, Intoxicated <Brandon Mckee - Last Filed: 08/10/17 12:29> Vital Signs Temp Pulse Resp BP Pulse Ox 08/06/17 20:26 75 18 168/100 H 98 08/06/17 17:27 96 H 176/102 H 08/06/17 13:08 99 F 73 18 151/99 H 100 08/06/17 11:10 76 18 131/78 98 08/06/17 06:47 68 18 128/89 97 08/06/17 03:58 63 17 124/86 95 08/06/17 00:29 98.0 F 75 20 110/77 96 08/05/17 20:22 78 18 112/84 98 08/05/17 18:10 98 F 72 18 139/84 99 Medical Decision Making - EKG Interpretation Interpreted by ED Physician: Yes Type: 12 lead EKG <Wilber Story - Last Filed: 08/06/17 05:17> Re-evaluation Time: 02:29 Reassessment Condition: Re-examined, Improving,but remains with symptoms <Brandon Mckee - Last Filed: 08/10/17 12:29> ED Course and Treatment: 08/06/17 04:50 Reviewed EKG, NSR at [address]-segment elevations or depressions, no T-wave inversions, normal intervals. (Wilber Story) 08/05/17 21:16 Patient signed out to Dr. Story at this time. Pending PES evaluation. Alcohol level was 505 (Brandon Mckee) - Lab Interpretations Lab Results: 08/05/17 19:11 08/05/17 19:11 Lab Results 08/06/17 04:41: Urine Opiates Screen Negative, Urine Methadone Screen Positive H , Ur Barbiturates Screen Negative, Ur Phencyclidine Scrn Negative, Ur Amphetamines Screen Negative, U Benzodiazepines Scrn Negative, U Oth Cocaine Metabols Negative, U Cannabinoids Screen Negative 08/06/17 04:41: Urine Color Yellow, Urine Appearance Clear, Urine pH 6.0, Ur Specific [place] 1.010, Urine Protein Negative, Urine Glucose (UA) Negative, Urine Ketones Negative, Urine Blood Negative, Urine Nitrate Negative, Urine Bilirubin Negative, Urine Urobilinogen 0.2, Ur Leukocyte Esterase Negative 08/05/17 19:11: Alcohol, Quantitative 505 H* 08/05/17 19:11: Salicylates < 1 L, Acetaminophen < 10.0 L 08/05/17 19:11: Sodium 147, Potassium 3.0 L, Chloride 105, Carbon Dioxide 23, Anion Gap 22 H, BUN 3 L, Creatinine 0.7 L, Est GFR ( Amer) > 60, Est GFR (Non-Af Amer) > 60, Random Glucose 159 H, Calcium 8.5, Magnesium 2.2, Total Bilirubin 0.7, AST 425 H D, ALT 194 H, Alkaline Phosphatase 200 H D, Total Protein 7.5, Albumin 4.1, Globulin 3.4, Albumin/Globulin Ratio 1.2 08/05/17 19:11: WBC 4.8, RBC 4.57, Hgb 15.8, Hct 44.3, MCV 96.9, MCH 34.6, MCHC 35.7, RDW 12.8, Plt Count 186, MPV 9.5, Gran % 52.4, Lymph % (Auto) 28.6, [place] % (Auto) 14.1 H, Eos % (Auto) 3.7, Baso % (Auto) 1.2, Gran # 2.53, Lymph # (Auto ) 1.4, [place] # (Auto) 0.7 H, Eos # (Auto) 0.2, Baso # (Auto) 0.06 - RAD Interpretation Radiology Orders: 08/05/17 18:24 CHEST PORTABLE [RAD] Stat - Medication Orders Current Medication Orders: Acetaminophen (Tylenol 325mg Tab) 650 mg PO Q4H PRN PRN Reason: Pain, Mild (1-3) Last Admin: 08/09/17 22:58 Dose: 650 mg [facility] Pain/Vitals Document 08/09/17 22:58 [facility] (Rec: 08/09/17 23:00 [id number]) Pain Reassessment Is This A Pain ReAssessment? No Sleep Is patient sleeping during reassessment? No Presence of Pain Presence of Pain Yes Pain Scale Used Pain Scale Used Numeric Location Pain Location Body Site Back Pain Behavior Guarding Aggravating Factors Changing Position Re-Assess: [facility] Pain/Vitals Document 08/09/17 23:58 SMA (Rec: 08/10/17 00:18 [id number]) Pain Reassessment Is This A Pain ReAssessment? Yes Sleep Is patient sleeping during reassessment? Yes Amlodipine Besylate (Norvasc) 5 mg PO DAILY [facility] Last Admin: 08/10/17 09:08 Dose: 5 mg MAR Pulse and Blood Pressure Document 08/10/17 09:08 [id number] (Rec: 08/10/17 09:09 [id number] [facility]- [id number]) Pulse Pulse Rate (60-90) 65 Blood Pressure Blood Pressure (100/60-150/90) 122/75 Clonidine HCl (Catapres) 0.1 mg PO TID [facility] Last Admin: 08/10/17 09:08 Dose: 0.1 mg MAR Pulse and Blood Pressure Document 08/10/17 09:08 [id number] (Rec: 08/10/17 09:08 [id number] [id number]) Pulse Pulse Rate (60-90) 65 Blood Pressure Blood Pressure (100/60-150/90) 122/75 Folic Acid (Folic Acid) 1 mg PO DAILY [facility] Last Admin: 08/10/17 09:07 Dose: 1 mg Heparin Sodium (Porcine) (Heparin) 5,000 units SC Q12 [facility] PRN Reason: Protocol Last Admin: 08/10/17 09:10 Dose: 5,000 units Subcutaneous Administrations Document 08/10/17 09:10 [id number] (Rec: 08/10/17 09:10 [id number] [id number]) Injection Site MAR Injection Site Left Abdomen Charges for Administration # of Subcutaneous Administrations 1 Dexmedetomidine HCl (Precedex 400mcg/100ml) 400 mcg in 100 mls @ 3.47 mls/hr IV .Q24H PRN; Protocol; 0.2 MCG/KG/HR PRN Reason: Anxiety Last Titration: 08/10/17 08:12 Dose: 0 mcg/kg/hr, 0 mls/hr Morales Agitation Sedation Document 08/10/17 08:12 [email or web address] (Rec: 08/10/17 08:14 [email or web address] [id number]) Morales Agitation Sedation Scale Morales Agitation Sedation Scale Score +1 Restless Anxious bu movements not aggressive vigorous Titration Intervention Document 08/10/17 08:12 [email or web address] (Rec: 08/10/17 08:14 [email or web address] [id number]) Titration Intake Titration Intake 15 Cumulative Intake 15 Cumulative Intake (Rx) 315 Waste Amount 0 Container Volume 85 Titration Dosing Titration Dose 0 IV Rate 0 Intake/Decrease Paused Cumulative Dose 1260 Folic Acid 1 mg/ Thiamine HCl 100 mg/ Multivitamins/Vitamin C 10 ml/ Dextrose 1 ,011.2 mls @ 100 mls/hr IV .Q10H7M MATT Last Admin: 08/10/17 09:10 Dose: 100 mls/hr eMAR Start Stop Document 08/10/17 09:10 [email or web address] (Rec: 08/10/17 09:10 [id number] [facility] [employer]) Intravenous Solution Start Date 08/10/17 Start Time 09:10 Lorazepam (Ativan) 2 mg IVP Q6 MATT PRN Reason: Protocol Last Admin: 08/10/17 09:11 Dose: 2 mg IVP Administration Document 08/10/17 09:11 [email or web address] (Rec: 08/10/17 09:11 [email or web address] [email or web address]) Charges for Administration # of IVP Administrations 1 Behavioural Document 08/10/17 09:11 [email or web address] (Rec: 08/10/17 09:11 [id number] [facility] [employer]) Maintenance Maintenance Dose Yes Nonmedicinal Nonmedicinal Interventions Redirect Therapeutic Communication Behavior Behavior for Medication: Anxiety Re-Assess: Reassess Psych Meds Document 08/10/17 09:41 [email or web address] (Rec: 08/10/17 10:55 [id number] [facility] [employer]) Reassess Psych Med Effective Ondansetron HCl (Zofran Inj) 4 mg IVP Q4H PRN PRN Reason: Nausea/Vomiting Pantoprazole Sodium (Protonix Ec Tab) 40 mg PO 0600 [facility] Last Admin: 08/10/17 07:01 Dose: 40 mg Quetiapine Fumarate (Seroquel) 50 mg PO BID MATT PRN Reason: Protocol Last Admin: 08/10/17 09:09 Dose: 50 mg Behavioural Document 08/10/17 09:09 [id number] (Rec: 08/10/17 09:09 [id number] [facility] Maintenance Maintenance Dose Yes Nonmedicinal Nonmedicinal Interventions Redirect Therapeutic Communication Behavior Behavior for Medication: Anxiety Re-Assess: Reassess Psych Meds Document 08/10/17 10:09 [email or web address] (Rec: 08/10/17 10:55 [id number] [facility] MLITINSKI) Reassess Psych Med Effective Quetiapine Fumarate (Seroquel) 100 mg PO HS MATT PRN Reason: Protocol Last Admin: 08/09/17 22:51 Dose: 100 mg Re-Assess: Reassess Psych Meds Document 08/09/17 23:51 SMA (Rec: 08/10/17 00:17 SMA [facility]-[id number]) Reassess Psych Med Effective Thiamine HCl (Vitamin B1 Tab) 100 mg PO BID [facility] Last Admin: 08/10/17 09:01 Dose: 100 mg Ziprasidone (Geodon Inj) 20 mg IM Q6H PRN; Protocol PRN Reason: agitation/psychosis Last Admin: 08/09/17 06:36 Dose: 20 mg IM Administration Charges Document 08/09/17 06:36 CAMPBELL (Rec: 08/09/17 06:37 CAMPBELL [facility]) Injection Site MAR Injection Site Right Deltoid Charges for Administration # of IM Administrations 1 Behavioural Document 08/09/17 06:36 CAMPBELL (Rec: 08/09/17 06:37 CAMPBELL [facility] [employer]) Maintenance Maintenance Dose No Nonmedicinal Nonmedicinal Interventions Redirect Therapeutic Communication Behavior Behavior for Medication: Anxiety Biting/Hitting/Throwing/ Kicking Continuous crying/screaming/ yelling Dangers to self/others Hallucinations/paranoid/ delusions/extreme fear Re-Assess: Reassess Psych Meds Document 08/09/17 07:06 AE (Rec: 08/09/17 15:20 AE [id number]) Reassess Psych Med Effective Discontinued Medications Clonidine HCl (Catapres) 0.1 mg PO BID [facility] Last Admin: 08/06/17 17:27 Dose: 0.1 mg MAR Pulse and Blood Pressure Document 08/06/17 17:27 MS (Rec: 08/06/17 17:27 MS [id number]) Pulse Pulse Rate (60-90) 96 Blood Pressure Blood Pressure (100/60-150/90) 176/102 Multivitamins/Vitamin C 10 ml/Thiamine HCl 100 mg/ Folic Acid 1 mg/ Sodium Chloride 1,011.2 mls @ 1,000 mls/hr IV .Q1H1M ONE Stop: 08/06/17 14:32 Last Admin: 08/06/17 14:45 Dose: 1,000 mls/hr eMAR Start Stop Document 08/06/17 14:45 GMD (Rec: 08/06/17 14:45 GMD [id number]) Intravenous Solution Start Date 08/06/17 Start Time 14:45 End Date 08/06/17 End time 15:46 Total Infusion Time 61 Sodium Chloride (Sodium Chloride 0.9%) 1,000 mls @ 999 mls/hr IV .Q1H1M STA Stop: 08/06/17 14:32 Last Admin: 08/06/17 14:45 Dose: 999 mls/hr eMAR Start Stop Document 08/06/17 14:45 GMD (Rec: 08/06/17 14:46 GMD [id number]) Intravenous Solution Start Date 08/06/17 Start Time 14:45 End Date 08/06/17 End time 15:46 Total Infusion Time 61 Multivitamins/Vitamin C 10 ml/Thiamine HCl 100 mg/ Folic Acid 1 mg/ Sodium Chloride 1,011.2 mls @ 100 mls/hr IV .Q10H7M ONE Stop: 08/07/17 02:00 Last Admin: 08/06/17 18:28 Dose: 100 mls/hr eMAR Start Stop Document 08/06/17 18:28 MS (Rec: 08/06/17 18:30 MS [id number]) Intravenous Solution Start Date 08/06/17 Start Time 18:30 Multivitamins/Vitamin C 10 ml/Thiamine HCl 100 mg/ Folic Acid 1 mg/ Sodium Chloride 1,011.2 mls @ 100 mls/hr IV .Q10H7M ONE Stop: 08/08/17 21:07 Last Admin: 08/08/17 18:56 Dose: 100 mls/hr eMAR Start Stop Document 08/08/17 18:56 AE (Rec: 08/08/17 18:56 AE [id number]) Intravenous Solution Start Date 08/08/17 Start Time 12:00 Multivitamins/Vitamin C 10 ml/Thiamine HCl 100 mg/ Folic Acid 1 mg/ Sodium Chloride 1,011.2 mls @ 100 mls/hr IV .Q10H7M ONE Stop: 08/09/17 08:54 Last Admin: 08/08/17 22:35 Dose: 100 mls/hr eMAR Start Stop Document 08/08/17 22:35 CAMPBELL (Rec: 08/09/17 06:39 CAMPBELL [facility]) Intravenous Solution Start Date 08/08/17 Start Time 22:35 Magnesium Sulfate/Dextrose (Magnesium Sulfate 1 Gm/100 Ml D5w) 1 gm in 100 mls @ 100 mls/hr IVPB ONCE ONE Stop: 08/09/17 10:20 Last Admin: 08/09/17 10:06 Dose: 100 mls/hr eMAR Start Stop Document 08/09/17 10:06 AE (Rec: 08/09/17 10:06 AE [id number]) Intravenous Solution Start Date 08/09/17 Start Time 10:06 End Date 08/09/17 End time 11:05 Total Infusion Time 59 Potassium Chloride (Potassium Chloride 20 Meq/100 Ml) 20 meq in 100 mls @ 50 mls/hr IVPB ONCE ONE Stop: 08/09/17 11:20 Last Admin: 08/09/17 10:06 Dose: 50 mls/hr eMAR Start Stop Document 08/09/17 10:06 AE (Rec: 08/09/17 10:07 AE [id number]) Intravenous Solution Start Date 08/09/17 Start Time 10:07 End Date 08/09/17 End time 11:07 Total Infusion Time 60 Lorazepam (Ativan) 2 mg IM ONCE ONE PRN Reason: Protocol Stop: 08/05/17 21:14 Last Admin: 08/05/17 21:14 Dose: 2 mg IM Administration Charges Document 08/05/17 21:14 IT (Rec: 08/05/17 21:14 IT [id number]) Injection Site MAR Injection Site Left Deltoid Charges for Administration # of IM Administrations 1 Lorazepam (Ativan) 4 mg IM ONCE ONE PRN Reason: Protocol Stop: 08/06/17 13:31 Last Admin: 08/06/17 13:48 Dose: 4 mg IM Administration Charges Document 08/06/17 13:48 GMD (Rec: 08/06/17 13:49 GMD [id number]) Injection Site MAR Injection Site Left Deltoid Charges for Administration # of IM Administrations 1 Lorazepam (Ativan) 2 mg IVP ONCE ONE PRN Reason: Protocol Stop: 08/06/17 15:55 Last Admin: 08/06/17 16:44 Dose: 2 mg IVP Administration Document 08/06/17 16:44 MS (Rec: 08/06/17 16:44 MS [id number]) Charges for Administration # of IVP Administrations 1 Lorazepam (Ativan) 2 mg IVP Q4H MATT PRN Reason: Protocol Last Admin: 08/07/17 07:40 Dose: 2 mg IVP Administration Document 08/07/17 07:40 VIKASH (Rec: 08/07/17 07:40 VIKASH [id number]) Charges for Administration # of IVP Administrations 1 Behavioural Document 08/07/17 07:40 VIKASH (Rec: 08/07/17 07:40 VIKASH [id number]) Maintenance Maintenance Dose Yes Nonmedicinal Nonmedicinal Interventions Therapeutic Communication Behavior Behavior for Medication: Anxiety Dangers to self/others Re-Assess: Reassess Psych Meds Document 08/07/17 08:10 VIKASH (Rec: 08/07/17 08:44 VIKASH [id number]) Reassess Psych Med Ineffective-LIP notifed Lorazepam (Ativan) 2 mg IVP Q2H PRN; Protocol PRN Reason: Symptoms of alcohol withdrawl Last Admin: 08/07/17 20:25 Dose: 2 mg IVP Administration Document 08/07/17 20:25 BK (Rec: 08/07/17 20:26 BK [id number]) Charges for Administration # of IVP Administrations 1 Behavioural Document 08/07/17 20:25 BK (Rec: 08/07/17 20:26 BK [id number]) Maintenance Maintenance Dose No Nonmedicinal Nonmedicinal Interventions Redirect Behavior Behavior for Medication: Anxiety Re-Assess: Reassess Psych Meds Document 08/07/17 20:55 WILLIAN (Rec: 08/08/17 08:16 WILLIAN [facility]-[id number]) Reassess Psych Med Effective Lorazepam (Ativan) 3 mg IVP Q4H MATT PRN Reason: Protocol Last Admin: 08/09/17 03:00 Dose: 3 mg IVP Administration Document 08/09/17 03:00 CAMPBELL (Rec: 06/10/18 06:36 CAMPBELL [facility]) Charges for Administration # of IVP Administrations 1 Behavioural Document 08/09/17 03:00 CAMPBELL (Rec: 08/09/17 06:36 CAMPBELL [facility] [employer]) Maintenance Maintenance Dose Yes Re-Assess: Reassess Psych Meds Document 08/09/17 03:30 CAMPBELL (Rec: 08/09/17 07:27 CAMPBELL [facility]-[id number]) Reassess Psych Med Effective Lorazepam (Ativan) 2 mg IM ONCE ONE PRN Reason: Protocol Stop: 08/08/17 10:19 Last Admin: 08/08/17 10:04 Dose: Magnesium Oxide (Mag-Ox) 400 mg PO STAT STA Stop: 08/10/17 08:02 Last Admin: 08/10/17 08:19 Dose: 400 mg Methadone HCl (Methadone) 20 mg PO ONCE ONE Stop: 08/07/17 10:01 Last Admin: 08/07/17 10:32 Dose: 20 mg [facility] Pain Assessment Document 08/07/17 10:32 VIKASH (Rec: 08/07/17 10:32 VIKASH [id number]) Pain Reassessment Is this a pain reassessment? No Sleep Is patient sleeping during reassessment? No Presence of Pain Presence of Pain Yes Pain Scale Used Pain Scale Used Numeric Location Left, Right or Bilateral Bilateral Upper or Lower Lower Pain Location Body Site Back Description Description Constant Intensity of Pain at present 8 Pain Behavior Irritability Restlessness Aggravating Factors None Alleviating Factors/Management Medication Techniques Alleviating Factors Medication Re-Assess: SARA Pain Assessment Document 08/07/17 11:32 (Rec: 08/08/17 08:17 [id number]) Pain Reassessment Is this a pain reassessment? Yes Presence of Pain Presence of Pain No Pain Scale Used Pain Scale Used Numeric Pneumococcal Polyvalent Vaccine (Pneumovax 23 Vaccine) 0.5 ml IM .ONCE ONE Stop: 08/06/17 22:04 Potassium Chloride (K-Dur 20 Meq Er Tab) 60 meq PO STAT STA Stop: 08/05/17 19:36 Last Admin: 08/05/17 19:35 Dose: Not Given Non-Admin Reason: Patient Refused Potassium Chloride (K-Dur 20 Meq Er Tab) 40 meq PO ONCE ONE Stop: 08/07/17 08:56 Last Admin: 08/07/17 10:32 Dose: Potassium Chloride (K-Dur 20 Meq Er Tab) 20 meq PO ONCE ONE Stop: 08/07/17 08:57 Last Admin: 08/07/17 10:32 Dose: 20 meq Potassium Chloride (K-Dur 20 Meq Er Tab) 40 meq PO STAT STA Stop: 08/10/17 08:02 Last Admin: 08/10/17 08:19 Dose: 40 meq Quetiapine Fumarate (Seroquel) 50 mg PO HS AMTT PRN Reason: Protocol Last Admin: 08/07/17 22:12 Dose: 50 mg Behavioural Document 08/07/17 22:12 BK (Rec: 08/07/17 22:12 BK [id number]) Maintenance Maintenance Dose No Nonmedicinal Nonmedicinal Interventions Redirect Behavior Behavior for Medication: Anxiety Re-Assess: Reassess Psych Meds Document 08/07/17 23:12 BK (Rec: 08/08/17 05:52 BK [id number]) Reassess Psych Med Ineffective-LIP notifed Quetiapine Fumarate (Seroquel) 50 mg PO DAILY MATT PRN Reason: Protocol Last Admin: 08/08/17 09:44 Dose: 50 mg Behavioural Document 08/08/17 09:44 (Rec: 08/08/17 09:44 [id number]) Maintenance Maintenance Dose Yes Behavior Behavior for Medication: Anxiety Continuous pacing/restlessness Hallucinations/paranoid/ delusions/extreme fear Re-Assess: Reassess Psych Meds Document 08/08/17 10:44 (Rec: 08/08/17 11:08 [id number]) Reassess Psych Med Effective Thiamine HCl (Vitamin B1 Inj) 100 mg IM STAT STA Stop: 08/05/17 18:26 Last Admin: 08/05/17 21:13 Dose: 100 mg IM Administration Charges Document 08/05/17 21:13 IT (Rec: 08/05/17 21:14 IT [id number]) Injection Site MAR Injection Site Right Deltoid Charges for Administration # of IM Administrations 1 Thiamine HCl (Vitamin B1 Tab) 100 mg PO DAILY MATT Ziprasidone (Geodon Inj) 10 mg IM STAT STA PRN Reason: Protocol Stop: 08/05/17 21:28 Last Admin: 08/05/17 21:38 Dose: 10 mg IM Administration Charges Document 08/05/17 21:38 IT (Rec: 08/05/17 21:38 IT [id number]) Injection Site MAR Injection Site Left Deltoid Charges for Administration # of IM Administrations 1 Disposition/Present on Arrival <Wilber Story - Last Filed: 08/06/17 05:17> - Present on Arrival Any Indicators Present on Arrival: No History of DVT/PE: No History of Uncontrolled Diabetes: No Urinary Catheter: No History Surgical Site Infection Following: None - Disposition Have Diagnosis and Disposition been Completed?: Yes Disposition Time: 02:29 <Brandon Mckee - Last Filed: 08/10/17 12:29> - Disposition Diagnosis: Alcohol intoxication, Elevated liver enzymes, Depression with suicidal ideation , Alcohol withdrawal Disposition: HOSPITALIZED Patient Problems: Current Active Problems Problem Status Onset Alcohol intoxication Acute Alcohol withdrawal Acute Depression with suicidal ideation Acute Elevated liver enzymes Acute Condition: FAIR
[2017-08-05] MEDS ORDERED: Thiamine 100 mg/ml Inj IM STA (18:25)
[2017-08-05 19:25] LABS: BASO # 0.06 K/mm3 (0.0-2.0); BASO % 1.2 % (0.0-3.0); EOS # 0.2 (0.0-0.7); EOS % 3.7 % (1.5-5.0); GRAN # 2.53 (1.4-6.5); GRAN % 52.4 % (50.0-68.0); HEMOGLOBIN 15.8 g/dL (14.0-18.0); LYMPH # 1.4 (1.2-3.4); LYMPH % 28.6 % (22.0-35.0); MEAN CELL VOLUME 96.9 fl (80.0-105.0); MEAN CORPUSCULAR HEMOGLOBIN 34.6 pg (25.0-35.0); MEAN CORPUSCULAR HGB CONC 35.7 g/dl (31.0-37.0); MEAN PLATELET VOLUME 9.5 fl (7.0-11.0); MONO # 0.7 (0.1-0.6); MONO % 14.1 % (1.0-6.0); RBC 4.57 10^6/uL (3.5-6.1); RED CELL DISTRIBUTION WIDTH 12.8 % (11.5-14.5); WHITE BLOOD COUNT 4.8 10^3/ul (4.5-11.0)
[2017-08-05 19:29] LABS: ACETAMINOPHEN < 10.0 ug/ml (10.0-20.0); SALICYLATE < 1 mg/dL (2.0-20.0)
[2017-08-05 19:30] LABS: ALB/GLOB RATIO 1.2 (1.1-1.8); ALBUMIN 4.1 g/dL (3.0-4.8); ALT/SGPT 194 U/L (7-56); AST/SGOT 425 U/L (17-59); BLOOD UREA NITROGEN 3 mg/dL (7-21); CALCIUM 8.5 mg/dL (8.4-10.5); GFR AFRICAN-AMERICAN > 60; GFR NON-AFRICAN AMERICAN > 60
[2017-08-05] MEDS ORDERED: Potassium Chloride 20 mEq ER Tab PO STA (19:35)
[2017-08-06 05:24] LABS: URINE BILIRUBIN NEGATIVE (NEGATIVE); URINE BLOOD NEGATIVE (NEGATIVE); URINE GLUCOSE (UA) NEGATIVE (NEGATIVE); URINE LEUKOCYTE ESTERASE NEGATIVE Leu/uL (NEGATIVE); URINE PROTEIN NEGATIVE mg/dL (<30 mg/dL); URINE UROBILINOGEN 0.2 E.U./dL (<1 E.U./dL)
[2017-08-06 05:41] LABS: URINE APPEARANCE CLEAR (CLEAR); URINE COLOR YELLOW (YELLOW)
[2017-08-06 05:47] LABS: BARBITURATES, UR NEGATIVE (NEGATIVE); BENZODIAZEPINES, UR NEGATIVE (NEGATIVE); OPIATES, UR NEGATIVE (NEGATIVE); PHENCYCLIDINE, UR NEGATIVE (NEGATIVE)
--- NOTE | 2017-08-06 07:24 | ED PDOC ---
Physical Exam - Physical Exam Narrative Physical Exam (Text): 08/06/17 07:21 Patient endorsed to me by Dr. Story for pending PES re-evaluation and disposition. Patient is a 46 year old male, with past medical history of hypertension, chronic back pain and alcohol dependence, presented to the Emergency department for alcohol intoxication and suicidal ideation. Patient was evaluated by PES and was medicated for agitation. Patient is pending re- evaluation by PES. Patient currently denies any new complaints. Patient denies suicidal ideation but expresses homicidal ideation. Vital Signs Reviewed: Yes Vital Signs Temp Pulse Resp BP Pulse Ox 08/06/17 13:08 99 F 73 18 151/99 H 100 08/06/17 11:10 76 18 131/78 98 08/06/17 06:47 68 18 128/89 97 08/06/17 03:58 63 17 124/86 95 08/06/17 00:29 98.0 F 75 20 110/77 96 08/05/17 20:22 78 18 112/84 98 08/05/17 18:10 98 F 72 18 139/84 99 Temperature: Afebrile Blood Pressure: Normal Pulse: Regular Respiratory Rate: Normal Appearance: Positive for: Well-Appearing Pain Distress: None Mental Status: Positive for: Agitated - Systems Exam Head: Present: Atraumatic, Normocephalic Pupils: Present: PERRL Extroacular Muscles: Present: EOMI Conjunctiva: Present: Normal Mouth: Present: Moist Mucous Membranes Neck: Present: Normal Range of Motion Respiratory/Chest: Present: Clear to Auscultation, Good Air Exchange. No: Respiratory Distress, Accessory Muscle Use Cardiovascular: Present: Regular Rate and Rhythm, Normal S1, S2. No: Murmurs Abdomen: No: Tenderness, Distention, Peritoneal Signs Back: Present: Normal Inspection Upper Extremity: Present: Normal Inspection. No: Cyanosis, Edema Lower Extremity: Present: Normal Inspection. No: Edema Neurological: Present: GCS=15, CN II-XII Intact, Speech Normal Skin: Present: Warm, Dry, Normal Color. No: Rashes Psychiatric: Present: Alert, Agitated, Homicidal Ideation. No: Suicidal Ideation Medical Decision Making ED Course and Treatment: 08/06/17 07:25 Impression: 46 year old male presents to the Emergency department for alcohol intoxication and suicidal ideation. Pending PES re-evaluation. Plan: -- PES re-evaluation -- Reassess and disposition Progress Notes: 08/06/17 08:30 Chest X-ray reviewed by radiologist, shows no active disease. 08/06/17 13:35 Discussed case with PES screener. As per screen Dr. Roxana Valerio was here in the morning at 7am by patient's bedside but elected to not wake up the patient. Subsequently, the screener was sent for re-evaluation. Patient is currently having alcohol withdrawal for which Dr. Schmidt requests admission to medicine. As per request, patient will be admitted to the hospitalist's service with 1:1. - Lab Interpretations Lab Results: 08/05/17 19:11 08/05/17 19:11 Lab Results 08/06/17 04:41: Urine Opiates Screen Negative, Urine Methadone Screen Positive H , Ur Barbiturates Screen Negative, Ur Phencyclidine Scrn Negative, Ur Amphetamines Screen Negative, U Benzodiazepines Scrn Negative, U Oth Cocaine Metabols Negative, U Cannabinoids Screen Negative 08/06/17 04:41: Urine Color Yellow, Urine Appearance Clear, Urine pH 6.0, Ur Specific [place] 1.010, Urine Protein Negative, Urine Glucose (UA) Negative, Urine Ketones Negative, Urine Blood Negative, Urine Nitrate Negative, Urine Bilirubin Negative, Urine Urobilinogen 0.2, Ur Leukocyte Esterase Negative 08/05/17 19:11: Alcohol, Quantitative 505 H* 08/05/17 19:11: Salicylates < 1 L, Acetaminophen < 10.0 L 08/05/17 19:11: Sodium 147, Potassium 3.0 L, Chloride 105, Carbon Dioxide 23, Anion Gap 22 H, BUN 3 L, Creatinine 0.7 L, Est GFR ( Amer) > 60, Est GFR (Non-Af Amer) > 60, Random Glucose 159 H, Calcium 8.5, Magnesium 2.2, Total Bilirubin 0.7, AST 425 H D, ALT 194 H, Alkaline Phosphatase 200 H D, Total Protein 7.5, Albumin 4.1, Globulin 3.4, Albumin/Globulin Ratio 1.2 08/05/17 19:11: WBC 4.8, RBC 4.57, Hgb 15.8, Hct 44.3, MCV 96.9, MCH 34.6, MCHC 35.7, RDW 12.8, Plt Count 186, MPV 9.5, Gran % 52.4, Lymph % (Auto) 28.6, [place] % (Auto) 14.1 H, Eos % (Auto) 3.7, Baso % (Auto) 1.2, Gran # 2.53, Lymph # (Auto ) 1.4, [place] # (Auto) 0.7 H, Eos # (Auto) 0.2, Baso # (Auto) 0.06 - RAD Interpretation Radiology Orders: 08/05/17 18:24 CHEST PORTABLE [RAD] Stat Utilization Management Nurse: Radiologist - Medication Orders Current Medication Orders: Multivitamins/Vitamin C 10 ml/Thiamine HCl 100 mg/ Folic Acid 1 mg/ Sodium Chloride 1,011.2 mls @ 1,000 mls/hr IV .Q1H1M ONE Stop: 08/06/17 14:32 Sodium Chloride (Sodium Chloride 0.9%) 1,000 mls @ 999 mls/hr IV .Q1H1M STA Stop: 08/06/17 14:32 Discontinued Medications Lorazepam (Ativan) 2 mg IM ONCE ONE PRN Reason: Protocol Stop: 08/05/17 21:14 Last Admin: 08/05/17 21:14 Dose: 2 mg IM Administration Charges Document 08/05/17 21:14 IT (Rec: 08/05/17 21:14 IT [id number]) Injection Site MAR Injection Site Left Deltoid Charges for Administration # of IM Administrations 1 Lorazepam (Ativan) 4 mg IM ONCE ONE PRN Reason: Protocol Stop: 08/06/17 13:31 Potassium Chloride (K-Dur 20 Meq Er Tab) 60 meq PO STAT STA Stop: 08/05/17 19:36 Thiamine HCl (Vitamin B1 Inj) 100 mg IM STAT STA Stop: 08/05/17 18:26 Last Admin: 08/05/17 21:13 Dose: 100 mg IM Administration Charges Document 08/05/17 21:13 IT (Rec: 08/05/17 21:14 IT [id number]) Injection Site MAR Injection Site Right Deltoid Charges for Administration # of IM Administrations 1 Ziprasidone (Geodon Inj) 10 mg IM STAT STA PRN Reason: Protocol Stop: 08/05/17 21:28 Last Admin: 08/05/17 21:38 Dose: 10 mg IM Administration Charges Document 08/05/17 21:38 IT (Rec: 08/05/17 21:38 IT [id number]) Injection Site MAR Injection Site Left Deltoid Charges for Administration # of IM Administrations 1 - Scribe Statement The provider has reviewed the documentation as recorded by the Scribe Ericka Vinson. All medical record entries made by the Scribe were at my direction and personally dictated by me. I have reviewed the chart and agree that the record accurately reflects my personal performance of the history, physical exam, medical decision making, and the department course for this patient. I have also personally directed, reviewed, and agree with the discharge instructions and disposition. Disposition/Present on Arrival - Present on Arrival Any Indicators Present on Arrival: No History of DVT/PE: No History of Uncontrolled Diabetes: No Urinary Catheter: No History of Decub. Ulcer: No History Surgical Site Infection Following: None - Disposition Have Diagnosis and Disposition been Completed?: Yes Diagnosis: Alcohol intoxication, Elevated liver enzymes, Depression with suicidal ideation , Alcohol withdrawal Disposition: HOSPITALIZED Disposition Time: 14:00 Patient Plan: Admission, Telemetry Patient Problems: Current Active Problems Problem Status Onset Alcohol intoxication Acute Depression with suicidal ideation Acute Elevated liver enzymes Acute Condition: FAIR
--- NOTE | 2017-08-06 08:19 | RAD ---
HISTORY: PES eval COMPARISON: 06/07/2017 FINDINGS: LUNGS: No active pulmonary disease. PLEURA: No significant pleural effusion identified, no pneumothorax apparent. CARDIOVASCULAR: Normal. OSSEOUS STRUCTURES: No significant abnormalities. VISUALIZED UPPER ABDOMEN: Normal. OTHER FINDINGS: None. IMPRESSION: No active disease.
--- NOTE | 2017-08-06 12:52 | CARD ---
APPROVED REPORT EKG Measurement Heart [id number] <Conclusion> Normal sinus rhythm Mildly prolonged QTc, new
[2017-08-06] MEDS ORDERED: Multivitamin (MVI) 10 ML, Thiamine 100 MG, Folic Acid 1 MG in Sodium Chloride 0.9% 1,00... IV ONE ×2 (13:32→15:54)
[2017-08-06] MEDS ORDERED: Sodium Chloride 0.9% 1,000 ML IV STA (13:32)
--- NOTE | 2017-08-06 16:04 | CP.PCM.HP ---
<Zoltan Newman - Last Filed: 08/06/17 15:58> History of Present Illness - History of Present Illness History of Present Illness: 46 year old male with past medical history of HTN, chronic back pain, Hepatitis C (known/untreated), and alcohol abuse presents to the hospital acute alcohol intoxication. Patient initially stated he suicidal/homicidal ideation, but after further questioning patient denied. He currently has no suicidal/ homicidal ideation. Patient states he drinks 3 pints of Belia daily. His last alcoholic drink was last night. Patient has been stressed secondary to his ' s several months ago. Patient denies chest pain, shortness of breath, abdominal pain, nausea, vomiting, diarrhea, fever, chills, syncope, change in vision. Past medical history: HTN, chronic back pain, Hepatitis C (known/untreated), and alcohol abuse Surgical History: denies Allergies: PCN -rash Family History: Noncontributory Social History: 1 ppd x 30 years. 3 pints of belia daily. Lives at home by self. Denies illicit drug use. Present on Admission - Present on Admission Any Indicators Present on Admission: No Review of Systems - Review of Systems Review of Systems: 12 point ROS as per HPI, otherwise negative Past Patient History - Infectious Disease Hx of Infectious Diseases: None - Tetanus Immunizations Tetanus Immunization: Unknown, Up to Date - Past Social History Smoking Status: Heavy Smoker > 10 Cigarettes Daily - CARDIAC Hx Cardiac Disorders: No Hx Hypertension: Yes - PULMONARY Hx Respiratory Disorders: No - NEUROLOGICAL HX Cerebrovascular Accident: No Hx Seizures: No - HEENT Hx HEENT Problems: No - RENAL Hx Chronic Kidney Disease: No - ENDOCRINE/METABOLIC Hx Endocrine Disorders: No - HEMATOLOGICAL/ONCOLOGICAL Hx Cancer: No Hx Human Immunodeficiency Virus (HIV): No - INTEGUMENTARY Hx Dermatological Problems: No - MUSCULOSKELETAL/RHEUMATOLOGICAL Hx Musculoskeletal Disorders: Yes Hx Back Pain: Yes Hx Falls: Yes Other/Comment: CHRONIC BACK PAIN - GASTROINTESTINAL Hx Gastrointestinal Disorders: No - GENITOURINARY/GYNECOLOGICAL Hx Sexually Transmitted Disorders: No - PSYCHIATRIC Hx Psychophysiologic Disorder: Yes Hx Depression: Yes Hx Substance Use: No Other/Comment: Past drug user - SURGICAL HISTORY Hx Surgeries: No - ANESTHESIA Hx Anesthesia: No Hx Anesthesia Reactions: No Hx Malignant Hyperthermia: No Meds Allergies/Adverse Reactions: Allergies Allergy/AdvReac Type Severity Reaction Status Date / Time Penicillins Allergy RASH Verified 06/10/17 08:14 pentazocine lactate Allergy ANAPHYLAXIS Verified 06/10/17 08:14 [From Michelle] Physical Exam - Constitutional Appears: Non-toxic, No Acute Distress - Head Exam Head Exam: ATRAUMATIC, NORMAL INSPECTION, NORMOCEPHALIC - Eye Exam Eye Exam: EOMI, Normal appearance - ENT Exam ENT Exam: Mucous Membranes Dry - Neck Exam Neck exam: Positive for: Normal Inspection - Respiratory Exam Respiratory Exam: Clear to Auscultation Bilateral, NORMAL BREATHING PATTERN - Cardiovascular Exam Cardiovascular Exam: RRR, +S1, +S2 - GI/Abdominal Exam GI & Abdominal Exam: Normal Bowel Sounds, Soft. absent: Tenderness - Extremities Exam Extremities exam: Positive for: normal inspection. Negative for: calf tenderness, pedal edema - Neurological Exam Neurological exam: Alert, CN II-XII Intact, Oriented x3 - Psychiatric Exam Psychiatric exam: Agitated - Skin Skin Exam: Intact, Normal Color, Warm Results - Vital Signs Recent Vital Signs: Last Vital Signs Temp 99 F 08/06/17 13:08 Pulse 73 08/06/17 13:08 Resp 18 08/06/17 13:08 BP 151/99 H 08/06/17 13:08 Pulse Ox 100 08/06/17 13:08 - Labs Result Diagrams: 08/05/17 19:11 08/05/17 19:11 Assessment & Plan - Assessment and Plan (Free Text) Plan: 46 year old male with past medical history of HTN, chronic back pain, Hepatitis C (known/untreated), and alcohol abuse presents to the hospital acute alcohol intoxication. Patient will be placed on CIWA protocol and placed on medications for alcohol withdrawal. 1. Alcohol intoxication CIWA protocol Ativan 2 q4h MATT Ativan 2 q2h prn Zofran Protonix Banana bag 2. HTN Clonidine 0.1 mg BID 3. Transaminitis History of Hep C Likely secondary to alcohol abuse Will trend LFTs 4. Hypokalemia Repleted in ED Recheck in AM 5. Prophylaxis Protonix SCDs Paty, PGY-2 <Reinier Du - Last Filed: 08/06/17 16:29> Results - Vital Signs Recent Vital Signs: Last Vital Signs Temp 99 F 08/06/17 13:08 Pulse 73 08/06/17 13:08 Resp 18 08/06/17 13:08 BP 151/99 H 08/06/17 13:08 Pulse Ox 100 08/06/17 13:08 - Labs Result Diagrams: 08/05/17 19:11 08/05/17 19:11 Assessment & Plan - Assessment and Plan (Free Text) Plan: patient initially intoxicated now shaking and delerious Acute DT's IV fluids thiamine ativan ciwa now denies suicidal ideation and denies plan was intoxicated earlier and expressed that concern 1:1 for physical safety as he is delirious and wants to walk out but unable to do so he is shaking
[2017-08-06 22:03] VITALS: BMI 28.4
[2017-08-06] MEDS ORDERED: Pneumococcal 23-Valent Vaccine IM ONE (22:03)
[2017-08-07] MEDS: Pantoprazole 40 mg EC Tab PO SCH (06:12)
[2017-08-07] MEDS ORDERED: Potassium Chloride 20 mEq ER Tab PO ONE ×2 (08:55→08:56)
[2017-08-07 09:38] LABS: BASO # 0.05 K/mm3 (0.0-2.0); BASO % 0.7 % (0.0-3.0); EOS # 0.2 (0.0-0.7); EOS % 2.5 % (1.5-5.0); GRAN # 4.85 (1.4-6.5); GRAN % 71.2 % (50.0-68.0); HEMOGLOBIN 16.6 g/dL (14.0-18.0); LYMPH # 0.9 (1.2-3.4); LYMPH % 12.6 % (22.0-35.0); MEAN CELL VOLUME 94.8 fl (80.0-105.0); MEAN CORPUSCULAR HEMOGLOBIN 34.6 pg (25.0-35.0); MEAN CORPUSCULAR HGB CONC 36.5 g/dl (31.0-37.0); MEAN PLATELET VOLUME 9.4 fl (7.0-11.0); MONO # 0.9 (0.1-0.6); RBC 4.8 10^6/uL (3.5-6.1); RED CELL DISTRIBUTION WIDTH 12.4 % (11.5-14.5); WHITE BLOOD COUNT 6.8 10^3/ul (4.5-11.0)
[2017-08-07 09:57] LABS: ALB/GLOB RATIO 1.2 (1.1-1.8); ALBUMIN 4.5 g/dL (3.0-4.8); ALT/SGPT 189 U/L (7-56); AST/SGOT 335 U/L (17-59); BLOOD UREA NITROGEN 5 mg/dL (7-21); CALCIUM 9.6 mg/dL (8.4-10.5); GFR AFRICAN-AMERICAN > 60; GFR NON-AFRICAN AMERICAN > 60
--- NOTE | 2017-08-07 11:50 | CP.PCM.PN ---
Subjective - Date & Time of Evaluation Date of Evaluation: 08/07/17 Time of Evaluation: 11:47 - Subjective Subjective: Patient seen and examined at bedside. Per nursing patient has been agitated overnight and altered. Patient denies any chest pain, fevers, chills, nausea, vomiting, changes in vision, dizziness, lightheadedness, and syncopal episodes. Patient denies any AH,VH,SI/HI. Objective - Vital Signs/Intake and Output Vital Signs (last 24 hours): Temp Pulse Resp BP Pulse Ox 98.1 F 94 H 20 164/99 H 97 08/07/17 06:00 08/07/17 10:33 08/07/17 06:00 08/07/17 10:33 08/07/17 06:00 Intake and Output: 08/07/17 08/07/17 06:59 18:59 Intake Total 840 Output Total 1050 Balance -210 - Medications Medications: Current Medications Acetaminophen (Tylenol 325mg Tab) 650 mg PO Q4H PRN PRN Reason: Pain, Mild (1-3) Last Admin: 08/07/17 06:15 Dose: 650 mg Amlodipine Besylate (Norvasc) 5 mg PO DAILY [facility] Last Admin: 08/07/17 10:33 Dose: 5 mg Clonidine HCl (Catapres) 0.1 mg PO TID [facility] Last Admin: 08/07/17 10:33 Dose: 0.1 mg Folic Acid (Folic Acid) 1 mg PO DAILY [facility] Last Admin: 08/07/17 10:33 Dose: 1 mg Lorazepam (Ativan) 2 mg IVP Q2H PRN; Protocol PRN Reason: Symptoms of alcohol withdrawl Last Admin: 08/07/17 08:50 Dose: 2 mg Lorazepam (Ativan) 3 mg IVP Q4H MATT PRN Reason: Protocol Last Admin: 08/07/17 10:44 Dose: 3 mg Ondansetron HCl (Zofran Inj) 4 mg IVP Q4H PRN PRN Reason: Nausea/Vomiting Pantoprazole Sodium (Protonix Ec Tab) 40 mg PO 0600 [facility] Last Admin: 08/07/17 06:12 Dose: 40 mg Quetiapine Fumarate (Seroquel) 50 mg PO HS [facility] PRN Reason: Protocol Quetiapine Fumarate (Seroquel) 50 mg PO DAILY MATT PRN Reason: Protocol Last Admin: 08/07/17 10:45 Dose: 50 mg Thiamine HCl (Vitamin B1 Tab) 100 mg PO BID MATT Ziprasidone (Geodon Inj) 20 mg IM Q6H PRN; Protocol PRN Reason: agitation/psychosis Last Admin: 08/07/17 11:11 Dose: 20 mg - Labs Labs: 08/07/17 09:30 08/07/17 09:30 - Head Exam Head Exam: ATRAUMATIC, NORMAL INSPECTION, NORMOCEPHALIC - Eye Exam Eye Exam: EOMI, Normal appearance Pupil Exam: NORMAL ACCOMODATION - ENT Exam ENT Exam: Mucous Membranes Moist - Respiratory Exam Respiratory Exam: Clear to Ausculation Bilateral, NORMAL BREATHING PATTERN. absent: Prolonged Expiratory Phase - Cardiovascular Exam Cardiovascular Exam: REGULAR RHYTHM - GI/Abdominal Exam GI & Abdominal Exam: Soft, Normal Bowel Sounds - Extremities Exam Additional comments: Resting tremors upon exam. - Back Exam Back Exam: NORMAL INSPECTION. absent: CVA tenderness (R), paraspinal tenderness - Neurological Exam Neurological Exam: Alert, Awake, CN II-XII Intact - Psychiatric Exam Psychiatric exam: Normal Affect, Normal Mood - Skin Skin Exam: Dry, Intact, Normal Color Assessment and Plan - Assessment and Plan (Free Text) Assessment: 46 year old male with past medical history of HTN, chronic back pain, Hepatitis C (known/untreated), and alcohol abuse presents to the hospital acute alcohol intoxication. Patient will be placed on CIWA protocol and placed on medications for alcohol withdrawal. Plan: 1. Alcohol intoxication CIWA protocol Ativan 3 q4h [facility] Psych consulted. Help appreciated. Zofran Protonix Thiamine, Folic acid. 2. HTN Clonidine 0.1 mg BID Norvasc 5mg PO Daily 3. Transaminitis History of Hep C Hep viral load ordered. Will f/u with results. Will trend LFTs 4. Hypokalemia Repleted in ED Recheck in AM 5. Prophylaxis Protonix SCDs Thalia, PGY-[address] Du
--- NOTE | 2017-08-07 21:56 | CON ---
DATE: HISTORY OF PRESENT ILLNESS: In short, the patient is a 46-year-old male; initially the patient came to the emergency room complaining suicidal and homicidal ideation, being under the influence of alcohol. Alcohol level in the emergency room was more than 500. The patient started developing alcohol withdrawal symptoms and was admitted on the medical side. The patient was seen and examined today. The patient presented to be irritable and agitated. The patient wants to sign against medical advice. Patient has no understanding of alcohol withdrawal symptoms. Vital signs are unstable. Blood pressure 152/99, earlier it was 168/100. The patient is tachycardic. The patient also is actively hallucinating during the interview. No capacity to sign against medical advice, and it was discussed with the patient's primary team. Of note in the emergency room, patient was agitated, needed to be in restraint overnight. No meaningful conversation possible because of patient's condition. PHYSICAL EXAMINATION: VITAL SIGNS: As I mentioned before. MEDICATIONS: Reviewed. Tylenol, Norvasc, Catapres, folic acid, Ativan 2 mg IV push every 2 hours as needed for alcohol withdrawals, also Ativan 3 mg IV push every four hours scheduled, Zofran, Protonix, Seroquel will be started at 50 mg a.m. and at bedtime, thiamine, folic acid, Geodon 20 mg IM every 6 hours as needed, patient got IM today because the patient was agitated. LABORATORY DATA: Labs reviewed. The patient has AST and ALT elevated, but it is trending down. Urinalysis negative. Toxicology, methadone positive as well as alcohol level was 505. Discussed with the medical team and Dr. Du. MENTAL STATUS EXAMINATION: The patient is confused, agitated, irritable, not participating in interview, actively hallucinating. Insight and judgment seems to be poor. Impulses are not predictable. IMPRESSION: Alcohol withdrawal with delirium, rule out delirium tremens. PLAN: Ativan was increased to 3 mg every 4 hours scheduled, multivitamins, thiamine and folic acid. The patient is on one-to-one. Geodon started as needed, Seroquel 50 mg twice a day for psychosis and delirium. Dr. Casey will follow up on this patient. The patient lacks capacity to sign against medical advice. Roxana Valerio MD
[2017-08-08] MEDS: Pantoprazole 40 mg EC Tab PO SCH (06:07)
[2017-08-08 07:10] LABS: HEMOGLOBIN 15.7 g/dL (14.0-18.0); MEAN CELL VOLUME 95.7 fl (80.0-105.0); MEAN CORPUSCULAR HEMOGLOBIN 34.1 pg (25.0-35.0); MEAN CORPUSCULAR HGB CONC 35.6 g/dl (31.0-37.0); MEAN PLATELET VOLUME 10.1 fl (7.0-11.0); RBC 4.61 10^6/uL (3.5-6.1); RED CELL DISTRIBUTION WIDTH 12.5 % (11.5-14.5); WHITE BLOOD COUNT 6.2 10^3/ul (4.5-11.0)
[2017-08-08 08:36] LABS: ALBUMIN 3.9 g/dL (3.0-4.8); ALT/SGPT 179 U/L (7-56); AST/SGOT 305 U/L (17-59); BLOOD UREA NITROGEN 8 mg/dL (7-21); CALCIUM 9.4 mg/dL (8.4-10.5); GFR AFRICAN-AMERICAN > 60; GFR NON-AFRICAN AMERICAN > 60
--- NOTE | 2017-08-08 10:53 | CP.PCM.CON ---
History of Present Illness - History of Present Illness History of Present Illness: MICU Consult Note HPI Patient is 46yo male with PMhx of HTN, Chronic back pain, Hep C (uknown if treated), EtOH abuse, drinks 3 pints Nikita/day, presented to the hospital 2 days ago with EtOH intoxication. Pt had EtOH level 505, and stated he was having psychosocial stressors. Pt was admitted to telemetry for EtOH withdrawal , requiring significant amount of BZD/Ativan IV. Pt currently hallucinating, not providing much history, or making sense coherently. Afebrile, HD stable, has extension tremors, in setting of hallucinations. Pt to be transferred to MICU for Precedex drip and further managment of DTs/EtOH withdrawal. Past medical history: HTN, chronic back pain, Hepatitis C, and alcohol abuse Surgical History: NONE Allergies: PCN Family History: NC Social History: 1 ppd x 30 years. 3 pints of nikita daily. Review of Systems - Review of Systems Review of Systems: as per HPI Past Patient History - Infectious Disease Hx of Infectious Diseases: None - Tetanus Immunizations Tetanus Immunization: Unknown, Up to Date - Past Social History Smoking Status: Heavy Smoker > 10 Cigarettes Daily - CARDIAC Hx Cardiac Disorders: No Hx Hypertension: Yes - PULMONARY Hx Respiratory Disorders: No - NEUROLOGICAL Hx Neurological Disorder: Yes (shaking) HX Cerebrovascular Accident: No Hx Seizures: No - HEENT Hx HEENT Problems: No - RENAL Hx Chronic Kidney Disease: No - ENDOCRINE/METABOLIC Hx Endocrine Disorders: No - HEMATOLOGICAL/ONCOLOGICAL Hx Blood Disorders: Yes Hx Hepatitis C: Yes - INTEGUMENTARY Hx Dermatological Problems: Yes Other/Comment: ble small wounds, abceses, tatoos - MUSCULOSKELETAL/RHEUMATOLOGICAL Hx Musculoskeletal Disorders: Yes Hx Back Pain: Yes Hx Falls: Yes Hx Herniated Disk: Yes Hx Unsteady Gait: Yes Other/Comment: CHRONIC BACK PAIN, job relatedhand injury - GASTROINTESTINAL Hx Gastrointestinal Disorders: No - GENITOURINARY/GYNECOLOGICAL Hx Sexually Transmitted Disorders: No - PSYCHIATRIC Hx Psychophysiologic Disorder: Yes (etoh daily beer/blackberry nikita drinker) Hx Anxiety: Yes Hx Depression: Yes Hx Substance Use: Yes (quit heroin/coke 1 yr ago) Other/Comment: 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, smokes 1 ppd, drinks about 5 drinks a day, suicidal/homicidal no plans - SURGICAL HISTORY Hx Surgeries: No - ANESTHESIA Hx Anesthesia: No Hx Anesthesia Reactions: No Hx Malignant Hyperthermia: No Meds Allergies/Adverse Reactions: Allergies Allergy/AdvReac Type Severity Reaction Status Date / Time Penicillins Allergy RASH Verified 06/10/17 08:14 pentazocine lactate Allergy ANAPHYLAXIS Verified 06/10/17 08:14 [From Michelle] - Medications Medications: Current Medications Acetaminophen (Tylenol 325mg Tab) 650 mg PO Q4H PRN PRN Reason: Pain, Mild (1-3) Last Admin: 08/07/17 06:15 Dose: 650 mg Amlodipine Besylate (Norvasc) 5 mg PO DAILY [facility] Last Admin: 08/08/17 09:43 Dose: 5 mg Clonidine HCl (Catapres) 0.1 mg PO TID [facility] Last Admin: 08/08/17 09:45 Dose: 0.1 mg Folic Acid (Folic Acid) 1 mg PO DAILY [facility] Last Admin: 08/07/17 10:33 Dose: 1 mg Dexmedetomidine HCl (Precedex 400mcg/100ml) 400 mcg in 100 mls @ 3.47 mls/hr IV .Q24H PRN; Protocol; 0.2 MCG/KG/HR PRN Reason: Anxiety Lorazepam (Ativan) 3 mg IVP Q4H [facility] PRN Reason: Protocol Last Admin: 08/08/17 09:42 Dose: 3 mg Ondansetron HCl (Zofran Inj) 4 mg IVP Q4H PRN PRN Reason: Nausea/Vomiting Pantoprazole Sodium (Protonix Ec Tab) 40 mg PO 0600 [facility] Last Admin: 08/08/17 06:07 Dose: Not Given Quetiapine Fumarate (Seroquel) 50 mg PO [facility] PRN Reason: Protocol Last Admin: 08/07/17 22:12 Dose: 50 mg Quetiapine Fumarate (Seroquel) 50 mg PO DAILY [facility] PRN Reason: Protocol Last Admin: 08/08/17 09:44 Dose: 50 mg Thiamine HCl (Vitamin B1 Tab) 100 mg PO BID [facility] Last Admin: 08/07/17 18:43 Dose: Not Given Ziprasidone (Geodon Inj) 20 mg IM Q6H PRN; Protocol PRN Reason: agitation/psychosis Last Admin: 08/07/17 23:40 Dose: 20 mg Physical Exam - Constitutional Appears: Non-toxic, Combative, Agitated, Confused - Head Exam Head Exam: NORMAL INSPECTION - Eye Exam Eye Exam: Normal appearance - ENT Exam ENT Exam: Mucous Membranes Moist - Respiratory Exam Respiratory Exam: Clear to Auscultation Bilateral, NORMAL BREATHING PATTERN - Cardiovascular Exam Cardiovascular Exam: REGULAR RHYTHM, +S1, +S2 - GI/Abdominal Exam GI & Abdominal Exam: Normal Bowel Sounds, Soft - Extremities Exam Extremities exam: Positive for: full ROM - Psychiatric Exam Psychiatric exam: Agitated, Anxious, Depressed Results - Vital Signs Recent Vital Signs: Last Vital Signs Temp 98.0 F 08/07/17 23:52 Pulse 76 08/08/17 06:00 Resp 19 08/07/17 23:52 BP 143/89 08/07/17 23:52 Pulse Ox 97 08/07/17 23:52 - Labs Result Diagrams: 08/08/17 06:30 08/08/17 06:30 Labs: Laboratory Results - last 24 hr 08/08/17 08/08/17 06:30 06:30 WBC 6.2 RBC 4.61 Hgb 15.7 Hct 44.1 MCV 95.7 MCH 34.1 MCHC 35.6 RDW 12.5 Plt Count 167 MPV 10.1 Sodium 140 Potassium 3.4 L Chloride 104 Carbon Dioxide 22 Anion Gap 18 BUN 8 Creatinine 0.8 Est GFR ( Amer) > 60 Est GFR (Non-Af Amer) > 60 Random Glucose 82 Calcium 9.4 Phosphorus 4.3 Magnesium 1.6 L Total Bilirubin 2.2 H AST 305 H ALT 179 H Alkaline Phosphatase 147 H D Total Protein 7.6 Albumin 3.9 Globulin 3.7 Albumin/Globulin Ratio 1.0 L Assessment & Plan - Assessment and Plan (Free Text) Assessment: 46yo male a/w EtOH withdrawal EtOH withdrawal Agitation Dehydration Abnormal LFTs Hx Hep C - currently afebrile, HD stable, agitated, combative, having hallucinations, extension tremors, has received Ativan IV multiple times with no improvement in symptoms Recommend: - supp o2 as needed - NO ID issues, follow up cultures - BP control - IVF - Precedex drip - MVT, Thiamine, Folic Acid - Ativanprn - Obtain PIVs - RUQ sono, check hep Panel, Hep C viral load - NPO - GI ppx - DVT ppx - Monitor in MICU Critical care time 30 minutes
[2017-08-08] MEDS ORDERED: Multivitamin (MVI) 10 ML, Thiamine 100 MG, Folic Acid 1 MG in Sodium Chloride 0.9% 1,00... IV ONE ×2 (11:01→22:48)
[2017-08-08] MEDS: Dexmedetomidine 400mcg/100mL 400 MCG/100 ML BOTTLE IV PRN ×2 (11:11→22:45)
--- NOTE | 2017-08-08 13:00 | CP.PCM.PN ---
<ThaliaJosefn - Last Filed: 08/08/17 15:09> Subjective - Date & Time of Evaluation Date of Evaluation: 08/08/17 Time of Evaluation: 12:56 - Subjective Subjective: Patient seen and examined at bedside. Per nursing the patient was agitated and reporting visual hallucinations overnight. Patient reports seeing his and father at the end of the hallway. He reports wanting to leave this morning to attend his daughters game. He denies any chest pain, shortness of breath, fevers, changes in vision, abdominal pain, syncopal episodes or any other complaints. Objective - Vital Signs/Intake and Output Vital Signs (last 24 hours): Temp Pulse Resp BP Pulse Ox 97.9 F 101 H 28 H 168/58 H 98 08/08/17 10:30 08/08/17 12:40 08/08/17 12:40 08/08/17 12:01 08/08/17 12:40 Intake and Output: 08/08/17 08/08/17 06:59 18:59 Intake Total 600 600 Output Total 700 700 Balance -100 -100 - Medications Medications: Current Medications Acetaminophen (Tylenol 325mg Tab) 650 mg PO Q4H PRN PRN Reason: Pain, Mild (1-3) Last Admin: 08/07/17 06:15 Dose: 650 mg Amlodipine Besylate (Norvasc) 5 mg PO DAILY [facility] Last Admin: 08/08/17 09:43 Dose: 5 mg Clonidine HCl (Catapres) 0.1 mg PO TID [facility] Last Admin: 08/08/17 09:45 Dose: 0.1 mg Folic Acid (Folic Acid) 1 mg PO DAILY [facility] Last Admin: 08/08/17 11:07 Dose: 1 mg Heparin Sodium (Porcine) (Heparin) 5,000 units SC Q12 [facility] PRN Reason: Protocol Dexmedetomidine HCl (Precedex 400mcg/100ml) 400 mcg in 100 mls @ 3.47 mls/hr IV .Q24H PRN; Protocol; 0.2 MCG/KG/HR PRN Reason: Anxiety Last Admin: 08/08/17 11:11 Dose: 0.2 mcg/kg/hr, 3.47 mls/hr Multivitamins/Vitamin C 10 ml/Thiamine HCl 100 mg/ Folic Acid 1 mg/ Sodium Chloride 1,011.2 mls @ 100 mls/hr IV .Q10H7M ONE Stop: 08/08/17 21:07 Lorazepam (Ativan) 3 mg IVP Q4H [facility] PRN Reason: Protocol Last Admin: 08/08/17 09:42 Dose: 3 mg Ondansetron HCl (Zofran Inj) 4 mg IVP Q4H PRN PRN Reason: Nausea/Vomiting Pantoprazole Sodium (Protonix Ec Tab) 40 mg PO 0600 [facility] Last Admin: 08/08/17 06:07 Dose: Not Given Quetiapine Fumarate (Seroquel) 50 mg PO HS [facility] PRN Reason: Protocol Last Admin: 08/07/17 22:12 Dose: 50 mg Quetiapine Fumarate (Seroquel) 50 mg PO DAILY [facility] PRN Reason: Protocol Last Admin: 08/08/17 09:44 Dose: 50 mg Thiamine HCl (Vitamin B1 Tab) 100 mg PO BID [facility] Last Admin: 08/08/17 11:10 Dose: 100 mg Ziprasidone (Geodon Inj) 20 mg IM Q6H PRN; Protocol PRN Reason: agitation/psychosis Last Admin: 08/07/17 23:40 Dose: 20 mg - Labs Labs: 08/08/17 06:30 08/08/17 06:30 - Head Exam Head Exam: ATRAUMATIC, NORMAL INSPECTION, NORMOCEPHALIC - Eye Exam Eye Exam: EOMI, Normal appearance, PERRL Pupil Exam: NORMAL ACCOMODATION - ENT Exam ENT Exam: Mucous Membranes Moist - Neck Exam Neck Exam: Normal Inspection - Respiratory Exam Respiratory Exam: Clear to Ausculation Bilateral, NORMAL BREATHING PATTERN - Cardiovascular Exam Cardiovascular Exam: REGULAR RHYTHM, +S1, +S2 - GI/Abdominal Exam GI & Abdominal Exam: Soft, Normal Bowel Sounds - Extremities Exam Extremities Exam: Full ROM. absent: Joint Swelling, Pedal Edema, Tenderness - Back Exam Back Exam: NORMAL INSPECTION. absent: paraspinal tenderness - Neurological Exam Neurological Exam: Abnormal Gait, Altered - Psychiatric Exam Psychiatric exam: Agitated, Anxious - Skin Skin Exam: Intact, Normal Color Assessment and Plan - Assessment and Plan (Free Text) Assessment: 46 year old male with past medical history of HTN, chronic back pain, Hepatitis C (known/untreated), and alcohol abuse presents to the hospital acute alcohol intoxication.. Plan: 1. Delirium Tremens 2/2 Alcohol intoxication Continue CIWA protocol CIWA score in the 20's and 30's upon examination this morning. Patient transferred to ICU for sedation with Precedex and cardiopulmonary function. Will monitor. Ativan changed to 3mg Q4 [facility] Psych consulted. Help appreciated. Zofran Protonix 2. HTN Clonidine 0.1 mg BID Norvasc 5mg PO Daily 3. Transaminitis History of Hep C Hep viral load ordered. Will f/u with results. AST 425/QSJ266. Trending up. Likely secondary to etoh abuse. Will monitor. 4. Hypokalemia Repleted in ED Recheck in AM 5.History of Heroin Abuse -Continue Methadone. Encouraged patient to join program after being stabilized and discharged from the hospital. Prophylaxis Protonix BASSEMs Thalia, PGY-[address] Raphael <Jamaal Raphael - Last Filed: 08/08/17 21:05> Objective - Vital Signs/Intake and Output Vital Signs (last 24 hours): Temp Pulse Resp BP Pulse Ox 98.7 F 59 L 13 173/123 H 97 08/08/17 16:00 08/08/17 20:10 08/08/17 20:10 08/08/17 20:00 08/08/17 20:10 Intake and Output: 08/08/17 08/09/17 18:59 06:59 Intake Total 1832 Output Total 1200 Balance 632 - Medications Medications: Current Medications Acetaminophen (Tylenol 325mg Tab) 650 mg PO Q4H PRN PRN Reason: Pain, Mild (1-3) Last Admin: 08/07/17 06:15 Dose: 650 mg Amlodipine Besylate (Norvasc) 5 mg PO DAILY [facility] Last Admin: 08/08/17 09:43 Dose: 5 mg Clonidine HCl (Catapres) 0.1 mg PO TID [facility] Last Admin: 08/08/17 18:54 Dose: Not Given Folic Acid (Folic Acid) 1 mg PO DAILY [facility] Last Admin: 08/08/17 11:07 Dose: 1 mg Heparin Sodium (Porcine) (Heparin) 5,000 units SC Q12 [facility] PRN Reason: Protocol Last Admin: 08/08/17 18:54 Dose: 5,000 units Dexmedetomidine HCl (Precedex 400mcg/100ml) 400 mcg in 100 mls @ 3.47 mls/hr IV .Q24H PRN; Protocol; 0.2 MCG/KG/HR PRN Reason: Anxiety Last Titration: 08/08/17 14:00 Dose: Infused Multivitamins/Vitamin C 10 ml/Thiamine HCl 100 mg/ Folic Acid 1 mg/ Sodium Chloride 1,011.2 mls @ 100 mls/hr IV .Q10H7M ONE Stop: 08/08/17 21:07 Last Admin: 08/08/17 18:56 Dose: 100 mls/hr Lorazepam (Ativan) 3 mg IVP Q4H [facility] PRN Reason: Protocol Last Admin: 08/08/17 18:55 Dose: Not Given Ondansetron HCl (Zofran Inj) 4 mg IVP Q4H PRN PRN Reason: Nausea/Vomiting Pantoprazole Sodium (Protonix Ec Tab) 40 mg PO 0600 [facility] Last Admin: 08/08/17 06:07 Dose: Not Given Quetiapine Fumarate (Seroquel) 50 mg PO BID [facility] PRN Reason: Protocol Last Admin: 08/08/17 18:56 Dose: Not Given Quetiapine Fumarate (Seroquel) 100 mg PO HS [facility] PRN Reason: Protocol Thiamine HCl (Vitamin B1 Tab) 100 mg PO BID [facility] Last Admin: 08/08/17 11:10 Dose: 100 mg Ziprasidone (Geodon Inj) 20 mg IM Q6H PRN; Protocol PRN Reason: agitation/psychosis Last Admin: 08/07/17 23:40 Dose: 20 mg - Labs Labs: 08/08/17 06:30 08/08/17 06:30 Attending/Attestation - Attestation I have personally seen and examined this patient.: Yes I have fully participated in the care of the patient.: Yes I have reviewed all pertinent clinical information, including history, physical exam and plan: Yes Notes (Text): 08/08/17 21:01 Patient seen and examined independently at bedside. Labs, vitals, overnight issues and notes reviewed. Case d/w . Probable Combination of DTs and BZD psychosis. Consensus to transfer to ICU for closer monitoring of cardio-pulmonary status with sedation using either precedex or propafol. Pateint does not have insight or medical judgement into his current condition and cannot sign out AMA.Agree with the remainder of the plan as outlined by the resident.
[2017-08-09] MEDS: Dexmedetomidine 400mcg/100mL 400 MCG/100 ML BOTTLE IV PRN ×2 (06:13→23:10)
--- NOTE | 2017-08-09 06:27 | CP.CCUPN ---
<Mariajose Shepard - Last Filed: 08/09/17 12:11> CCU Subjective - Physician Review Subjective (Free Text): 08/09/17 09:15 Precedex up to 1.5 due to behavior issue. Avasyst in place. Emmanuel romero yesterday RN report that Pt put iphone and money under his scrotum CCU Objective - Vital Signs / Intake & Output Intake and Output (Last 8hrs): Intake & Output 08/08/17 08/08/17 08/09/17 14:59 22:59 06:59 Intake Total 700 1132 100 Output Total 700 500 Balance 0 632 100 Weight 153 lb Intake: IV 100 1012 100 Left Antecubital 600 Left Subclavian 100 Left Upper arm 312 Oral 600 120 Output: Urine 700 500 Urine, Voided 700 500 Other: # Voids Urine, Voided 1 # Bowel Movements 0 0 - Physical Exam Head: Positive for: Atraumatic, Normocephalic Pupils: Positive for: PERRL Extroacular Muscles: Positive for: EOMI Conjunctiva: Positive for: Normal Mouth: Positive for: Moist Mucous Membranes Neck: Positive for: Normal Range of Motion Respiratory/Chest: Positive for: Clear to Auscultation, Good Air Exchange. Negative for: Respiratory Distress, Accessory Muscle Use Cardiovascular: Positive for: Regular Rate and Rhythm, Normal S1, S2. Negative for: Murmurs Abdomen: Negative for: Tenderness, Distention, Peritoneal Signs Back: Positive for: Normal Inspection Upper Extremity: Positive for: Normal Inspection. Negative for: Cyanosis, Edema Lower Extremity: Positive for: Normal Inspection. Negative for: Edema Neurological: Positive for: GCS=15, CN II-XII Intact, Speech Normal Skin: Positive for: Warm, Dry, Normal Color. Negative for: Rashes Psychiatric: Positive for: Homicidal Ideation. Negative for: Agitated, Suicidal Ideation Other physical findings (Free Text): cannot follow command. lethargic. easy to awake - Medications Active Medications: Active Medications Generic Name Dose Route Start Last Admin Trade Name Freq PRN Reason Stop Dose Admin Acetaminophen 650 mg 08/06/17 15:53 08/07/17 06:15 Tylenol 325mg Tab PO 650 mg Q4H PRN Administration Pain, Mild (1-3) Amlodipine Besylate 5 mg 08/07/17 10:00 08/08/17 09:43 Norvasc PO 5 mg DAILY [facility] Administration Clonidine HCl 0.1 mg 08/07/17 10:00 08/08/17 18:54 Catapres PO Not Given TID [facility] Folic Acid 1 mg 08/07/17 10:00 08/08/17 11:07 Folic Acid PO 1 mg DAILY [facility] Administration Heparin Sodium (Porcine) 5,000 units 08/08/17 12:45 08/08/17 22:44 Heparin SC 5,000 units Q12 [facility] Administration Protocol Dexmedetomidine HCl 400 mcg in 100 mls @ 3.47 mls/hr 08/08/17 10:26 08/09/17 06:13 Precedex 400mcg/100ml IV 1.5 mcg/kg/hr .Q24H PRN 26.025 mls/hr Anxiety Administration Protocol 0.2 MCG/KG/HR Multivitamins/Vitamin C 10 ml/ 1,011.2 mls @ 100 mls/hr 08/08/17 22:48 Thiamine HCl 100 mg/ Folic IV 08/09/17 08:54 Acid 1 mg/ Sodium Chloride .Q10H7M ONE Lorazepam 2 mg 08/09/17 06:00 Ativan IVP Q6 [facility] Protocol Ondansetron HCl 4 mg 08/06/17 15:53 Zofran Inj IVP Q4H PRN Nausea/Vomiting Pantoprazole Sodium 40 mg 08/07/17 06:00 08/08/17 06:07 Protonix Ec Tab PO Not Given 0600 [facility] Quetiapine Fumarate 50 mg 08/08/17 18:00 08/08/17 18:56 Seroquel PO Not Given BID [facility] Protocol Quetiapine Fumarate 100 mg 08/08/17 13:45 08/08/17 22:40 Seroquel PO Not Given HS [facility] Protocol Thiamine HCl 100 mg 08/07/17 18:00 08/08/17 11:10 Vitamin B1 Tab PO 100 mg BID [facility] Administration Ziprasidone 20 mg 08/07/17 10:31 08/07/17 23:40 Geodon Inj IM 20 mg Q6H PRN Administration agitation/psychosis Protocol - Patient Studies Lab Studies: Lab Studies 08/08/17 08/08/17 Range/Units 06:30 06:30 WBC 6.2 (4.5-11.0) 10^3/ul RBC 4.61 (3.5-6.1) 10^6/uL Hgb 15.7 (14.0-18.0) g/dL Hct 44.1 (42.0-52.0) % MCV 95.7 (80.0-105.0) fl MCH 34.1 (25.0-35.0) pg MCHC 35.6 (31.0-37.0) g/dl RDW 12.5 (11.5-14.5) % Plt Count 167 (120.0-450.0) 10^3/uL MPV 10.1 (7.0-11.0) fl Sodium 140 (132-148) mmol/L Potassium 3.4 L (3.6-5.0) mmol/L Chloride 104 (98-107) mmol/L Carbon Dioxide 22 (21-33) mmol/L Anion Gap 18 (10-20) BUN 8 (7-21) mg/dL Creatinine 0.8 (0.8-1.5) mg/dl Est GFR ( Amer) > 60 Est GFR (Non-Af Amer) > 60 Random Glucose 82 (70-110) mg/dL Calcium 9.4 (8.4-10.5) mg/dL Phosphorus 4.3 (2.5-4.5) mg/dL Magnesium 1.6 L (1.7-2.2) mg/dL Total Bilirubin 2.2 H (0.2-1.3) mg/dL AST 305 H (17-59) U/L ALT 179 H (7-56) U/L Alkaline Phosphatase 147 H D (38-126) U/L Total Protein 7.6 (5.8-8.3) g/dL Albumin 3.9 (3.0-4.8) g/dL Globulin 3.7 gm/dL Albumin/Globulin Ratio 1.0 L (1.1-1.8) Laboratory Results - last 24 hr 08/08/17 08/08/17 06:30 06:30 WBC 6.2 RBC 4.61 Hgb 15.7 Hct 44.1 MCV 95.7 MCH 34.1 MCHC 35.6 RDW 12.5 Plt Count 167 MPV 10.1 Sodium 140 Potassium 3.4 L Chloride 104 Carbon Dioxide 22 Anion Gap 18 BUN 8 Creatinine 0.8 Est GFR ( Amer) > 60 Est GFR (Non-Af Amer) > 60 Random Glucose 82 Calcium 9.4 Phosphorus 4.3 Magnesium 1.6 L Total Bilirubin 2.2 H AST 305 H ALT 179 H Alkaline Phosphatase 147 H D Total Protein 7.6 Albumin 3.9 Globulin 3.7 Albumin/Globulin Ratio 1.0 L Critical Care Progress Note - Nutrition Nutrition: Nutrition Category Date Time Status Heart Healthy Diet [DIET] Diets 08/06/17 Dinner Active Assessment/Plan - Assessment and Plan (Free Text) Plan: Raul Babin, 46yo male a/w EtOH withdrawal.PMhx of HTN, Chronic back pain , Hep C (uknown if treated), EtOH abuse, drinks 3 pints Belia/day, presented to the hospital 2 days ago with EtOH intoxication. Pt had EtOH level 505, and stated he was having psychosocial stressors. Pt was admitted to telemetry for EtOH withdrawal, requiring significant amount of BZD/Ativan IV. He was agitated , combative, having hallucinations, extension tremors, has received Ativan IV multiple times with no improvement in symptoms. Pt to be transferred to MICU for Precedex drip and further managment of DTs/EtOH withdrawal. EtOH withdrawal/ DT Agitation Dehydration Abnormal LFTs Hx Hep C Benzo psychosis - 20mg Ativan given yesterday Neuro Precedex drip, now taper from 1.5 to 0.5 Ativan 2Q6 [facility] Seroquel 50-50-100 Geodon PRN MVT, Thiamine, Folic Acid, banana bag Pulm supp o2 as needed Card BP control IVF, banana bag Amlodipine 5 QD, Clonidine 0.1 TID --------- CANNOT do PO now If needed, will PRN IV Bp med GI RUQ sono, check hep Panel, Hep C viral load NPO Will check INR for LFT function and for meddrey score Dark urine, U/O 1200 Romero (08/08/17) Endo Maintain glucose 140-180 Heme ___INR____ ID NO ID issues, follow up cultures Pending Hep C viral load PVX Heparin SC Q12 s/r/d/w Dr Menjivar <iKrt Menjivar - Last Filed: 08/09/17 12:55> CCU Objective - Vital Signs / Intake & Output Intake and Output (Last 8hrs): Intake & Output 08/08/17 08/09/17 08/09/17 22:59 06:59 14:59 Intake Total 1132 100 100 Output Total 500 1200 Balance 632 100 -1100 Weight 158 lb 6.4 oz Intake: IV 1012 100 100 Left Antecubital 600 Left Subclavian 100 100 Left Upper arm 312 Oral 120 0 Output: Urine 500 1200 Urine, Voided 500 1200 Other: # Bowel Movements 0 0 - Medications Active Medications: Active Medications Generic Name Dose Route Start Last Admin Trade Name Freq PRN Reason Stop Dose Admin Acetaminophen 650 mg 08/06/17 15:53 08/07/17 06:15 Tylenol 325mg Tab PO 650 mg Q4H PRN Administration Pain, Mild (1-3) Amlodipine Besylate 5 mg 08/07/17 10:00 08/08/17 09:43 Norvasc PO 5 mg DAILY [facility] Administration Clonidine HCl 0.1 mg 08/07/17 10:00 08/09/17 10:05 Catapres PO Not Given TID [facility]ATT Folic Acid 1 mg 08/07/17 10:00 08/08/17 11:07 Folic Acid PO 1 mg DAILY [facility] Administration Heparin Sodium (Porcine) 5,000 units 08/08/17 12:45 08/09/17 10:06 Heparin SC 5,000 units Q12 [facility] Administration Protocol Dexmedetomidine HCl 400 mcg in 100 mls @ 3.47 mls/hr 08/08/17 10:26 08/09/17 06:13 Precedex 400mcg/100ml IV 1.5 mcg/kg/hr .Q24H PRN 26.025 mls/hr Anxiety Administration Protocol 0.2 MCG/KG/HR Folic Acid 1 mg/ Thiamine HCl 1,011.2 mls @ 100 mls/hr 08/09/17 09:30 10:11 100 mg/ Multivitamins/Vitamin IV 100 mls/hr C 10 ml/ Dextrose .Q10H7M [facility] Administration Lorazepam 2 mg 08/09/17 06:00 08/09/17 06:41 Ativan IVP Not Given Q6 [facility] Protocol Ondansetron HCl 4 mg 08/06/17 15:53 Zofran Inj IVP Q4H PRN Nausea/Vomiting Pantoprazole Sodium 40 mg 08/07/17 06:00 08/09/17 06:39 Protonix Ec Tab PO Not Given 0600 [facility] Quetiapine Fumarate 50 mg 08/08/17 18:00 08/08/17 18:56 Seroquel PO Not Given BID [facility] Protocol Quetiapine Fumarate 100 mg 08/08/17 13:45 08/08/17 22:40 Seroquel PO Not Given HS [facility] Protocol Thiamine HCl 100 mg 08/07/17 18:00 08/08/17 11:10 Vitamin B1 Tab PO 100 mg BID [facility] Administration Ziprasidone 20 mg 08/07/17 10:31 08/09/17 06:36 Geodon Inj IM 20 mg Q6H PRN Administration agitation/psychosis Protocol Critical Care Progress Note - Nutrition Nutrition: Nutrition Category Date Time Status Heart Healthy Diet [DIET] Diets 08/06/17 Dinner Active Assessment/Plan - Assessment and Plan (Free Text) Plan: Patient seen and examined on rounds, with resident, agree with note with following additions/exceptions: Patient is 46yo male with PMHx of EtOH abuse, a/w EtOH withdrawal Currently afebrile, HD stable, comfortable in NAD, compliant with nursing staff , on Precedex drip, weaning off precedex. Doing well EtOH withdrawal Agitation Dehydration Abnormal LFTs Hx Hep C - Recommend: - supp o2 as needed - NO ID issues, follow up cultures - BP control - IVF - Precedex drip, titrate - MVT, Thiamine, Folic Acid - Ativan prn - RUQ sono, check hep Panel, Hep C viral load - resume diet - GI ppx - DVT ppx - Monitor in MICU
[2017-08-09] MEDS: Pantoprazole 40 mg EC Tab PO SCH (06:39)
[2017-08-09] MEDS ORDERED: Magnesium Sulfate 1 gm in D5W 1 GM/100 ML BAG IVPB ONE (09:21)
[2017-08-09] MEDS: Folic Acid 1 MG, Thiamine 100 MG, Multivitamin (MVI) 10 ML in Dextrose 5% In Water 1,00... IV SCH ×2 (10:11→23:04)
--- NOTE | 2017-08-09 11:54 | CP.PCM.PN ---
<Justin Vásquez - Last Filed: 08/09/17 11:55> Subjective - Date & Time of Evaluation Date of Evaluation: 08/09/17 Time of Evaluation: 11:52 - Subjective Subjective: Patient seen and examined at bedside. Per nursing no acute events occurred overnight. Patient was sedated upon examination today and as a results ROS was limited. Patient did deny chest pain, shortness of breath, fevers, and chills. Remainder of ROS was limited. Objective - Vital Signs/Intake and Output Vital Signs (last 24 hours): Temp Pulse Resp BP Pulse Ox 98.4 F 65 18 144/105 H 98 08/09/17 08:00 08/09/17 07:32 08/09/17 07:20 08/09/17 07:00 08/09/17 07:20 Intake and Output: 08/09/17 08/09/17 06:59 18:59 Intake Total 100 100 Output Total 1200 Balance 100 -1100 - Medications Medications: Current Medications Acetaminophen (Tylenol 325mg Tab) 650 mg PO Q4H PRN PRN Reason: Pain, Mild (1-3) Last Admin: 08/07/17 06:15 Dose: 650 mg Amlodipine Besylate (Norvasc) 5 mg PO DAILY [facility] Last Admin: 08/08/17 09:43 Dose: 5 mg Clonidine HCl (Catapres) 0.1 mg PO TID [facility] Last Admin: 08/09/17 10:05 Dose: Not Given Folic Acid (Folic Acid) 1 mg PO DAILY [facility] Last Admin: 08/08/17 11:07 Dose: 1 mg Heparin Sodium (Porcine) (Heparin) 5,000 units SC Q12 MATT PRN Reason: Protocol Last Admin: 08/09/17 10:06 Dose: 5,000 units Dexmedetomidine HCl (Precedex 400mcg/100ml) 400 mcg in 100 mls @ 3.47 mls/hr IV .Q24H PRN; Protocol; 0.2 MCG/KG/HR PRN Reason: Anxiety Last Admin: 08/09/17 06:13 Dose: 1.5 mcg/kg/hr, 26.025 mls/hr Folic Acid 1 mg/ Thiamine HCl 100 mg/ Multivitamins/Vitamin C 10 ml/ Dextrose 1 ,011.2 mls @ 100 mls/hr IV .Q10H7M [facility] Last Admin: 08/09/17 10:11 Dose: 100 mls/hr Lorazepam (Ativan) 2 mg IVP Q6 MATT PRN Reason: Protocol Last Admin: 08/09/17 06:41 Dose: Not Given Ondansetron HCl (Zofran Inj) 4 mg IVP Q4H PRN PRN Reason: Nausea/Vomiting Pantoprazole Sodium (Protonix Ec Tab) 40 mg PO 0600 [facility] Last Admin: 08/09/17 06:39 Dose: Not Given Quetiapine Fumarate (Seroquel) 50 mg PO BID MATT PRN Reason: Protocol Last Admin: 08/08/17 18:56 Dose: Not Given Quetiapine Fumarate (Seroquel) 100 mg PO HS MATT PRN Reason: Protocol Last Admin: 08/08/17 22:40 Dose: Not Given Thiamine HCl (Vitamin B1 Tab) 100 mg PO BID [facility] Last Admin: 08/08/17 11:10 Dose: 100 mg Ziprasidone (Geodon Inj) 20 mg IM Q6H PRN; Protocol PRN Reason: agitation/psychosis Last Admin: 08/09/17 06:36 Dose: 20 mg - Labs Labs: 08/08/17 06:30 08/08/17 06:30 - Head Exam Head Exam: ATRAUMATIC, NORMAL INSPECTION, NORMOCEPHALIC - Eye Exam Eye Exam: EOMI, Normal appearance, PERRL Pupil Exam: NORMAL ACCOMODATION, PERRL. absent: Irregular, Unequal - ENT Exam ENT Exam: Mucous Membranes Moist, Normal Exam, Normal Oropharynx - Neck Exam Neck Exam: Normal Inspection. absent: Lymphadenopathy, Thyromegaly - Respiratory Exam Respiratory Exam: Clear to Ausculation Bilateral, NORMAL BREATHING PATTERN - Cardiovascular Exam Cardiovascular Exam: REGULAR RHYTHM, +S1, +S2 - GI/Abdominal Exam GI & Abdominal Exam: Soft, Normal Bowel Sounds - Neurological Exam Neurological Exam: Altered - Psychiatric Exam Psychiatric exam: Normal Affect, Normal Mood - Skin Skin Exam: Dry, Intact Assessment and Plan - Assessment and Plan (Free Text) Assessment: 46 year old male with past medical history of HTN, chronic back pain, Hepatitis C (known/untreated), and alcohol abuse presents to the hospital acute alcohol intoxication.. Plan: 1. Delirium Tremens 2/2 Alcohol intoxication -Tranferred to ICU 08/08/17 for Delirium Tremens. Continue CIWA protocol CIWA score in the 20's and 30's upon examination this morning. Precedex drip. Will taper down and re-evaluate status. Psych consulted. Help appreciated. Zofran Protonix 2. HTN Clonidine 0.1 mg BID Norvasc 5mg PO Daily 3. Transaminitis History of Hep C Hep viral load ordered. Will f/u with results. AST 305/JNF740. Trending up. Likely secondary to etoh abuse. Will monitor. 4. Hypokalemia Repleted. Will monitor with serial CMP's. Recheck in AM 5.History of Heroin Abuse -Continue Methadone. Encouraged patient to join program after being stabilized and discharged from the hospital. Prophylaxis Protonix SCDs Thalia, PGY-[address] Raphael <Jamaal Raphael - Last Filed: 08/09/17 21:45> Objective - Vital Signs/Intake and Output Vital Signs (last 24 hours): Temp Pulse Resp BP Pulse Ox 97 F L 61 23 147/55 L 98 08/09/17 16:00 08/09/17 19:04 08/09/17 19:04 08/09/17 19:04 08/09/17 19:04 Intake and Output: 08/09/17 08/10/17 18:59 06:59 Intake Total 2140 Output Total 1980 Balance 160 - Medications Medications: Current Medications Acetaminophen (Tylenol 325mg Tab) 650 mg PO Q4H PRN PRN Reason: Pain, Mild (1-3) Last Admin: 08/07/17 06:15 Dose: 650 mg Amlodipine Besylate (Norvasc) 5 mg PO DAILY [facility] Last Admin: 08/09/17 15:20 Dose: 5 mg Clonidine HCl (Catapres) 0.1 mg PO TID [facility] Last Admin: 08/09/17 18:02 Dose: Not Given Folic Acid (Folic Acid) 1 mg PO DAILY [facility] Last Admin: 08/09/17 15:19 Dose: 1 mg Heparin Sodium (Porcine) (Heparin) 5,000 units SC Q12 MATT PRN Reason: Protocol Last Admin: 08/09/17 10:06 Dose: 5,000 units Dexmedetomidine HCl (Precedex 400mcg/100ml) 400 mcg in 100 mls @ 3.47 mls/hr IV .Q24H PRN; Protocol; 0.2 MCG/KG/HR PRN Reason: Anxiety Last Admin: 08/09/17 06:13 Dose: 1.5 mcg/kg/hr, 26.025 mls/hr Folic Acid 1 mg/ Thiamine HCl 100 mg/ Multivitamins/Vitamin C 10 ml/ Dextrose 1 ,011.2 mls @ 100 mls/hr IV .Q10H7M [facility] Last Admin: 08/09/17 10:11 Dose: 100 mls/hr Lorazepam (Ativan) 2 mg IVP Q6 MATT PRN Reason: Protocol Last Admin: 08/09/17 20:01 Dose: Not Given Ondansetron HCl (Zofran Inj) 4 mg IVP Q4H PRN PRN Reason: Nausea/Vomiting Pantoprazole Sodium (Protonix Ec Tab) 40 mg PO 0600 [facility] Last Admin: 08/09/17 06:39 Dose: Not Given Quetiapine Fumarate (Seroquel) 50 mg PO BID MATT PRN Reason: Protocol Last Admin: 08/09/17 20:03 Dose: Not Given Quetiapine Fumarate (Seroquel) 100 mg PO HS MATT PRN Reason: Protocol Last Admin: 08/08/17 22:40 Dose: Not Given Thiamine HCl (Vitamin B1 Tab) 100 mg PO BID [facility] Last Admin: 08/09/17 20:04 Dose: Not Given Ziprasidone (Geodon Inj) 20 mg IM Q6H PRN; Protocol PRN Reason: agitation/psychosis Last Admin: 08/09/17 06:36 Dose: 20 mg - Labs Labs: 08/08/17 06:30 08/08/17 06:30 PT 13.2 SECONDS (9.4-12.5) H 08/09/17 14:30 INR 1.15 (0.93-1.08) H 08/09/17 14:30 APTT 64.7 Seconds (25.1-36.5) H 08/09/17 14:30 Attending/Attestation - Attestation I have personally seen and examined this patient.: Yes I have fully participated in the care of the patient.: Yes I have reviewed all pertinent clinical information, including history, physical exam and plan: Yes Notes (Text): 08/09/17 21:45 Patient seen and examined at bedside independently. Overnight issues, labs and vitals noted. Plan of care d/w ICU team. Psych. follow up ongoing. Agree with the plan as outlined by the resident.
[2017-08-09 14:55] LABS: INR 1.15 (0.93-1.08); PARTIAL THROMBOPLASTIN TIME 64.7 Seconds (25.1-36.5); PROTHROMBIN TIME 13.2 SECONDS (9.4-12.5)
--- NOTE | 2017-08-09 19:02 | CP.PCM.PCO ---
Addendum Addendum: I reviewed recent notes and visited with patient at bedside. Patient was sedated due to Precedex administered in the ICU. I could not assess him however I was able to discuss patient's course and my recommendations with Dr. Mariajose Shepard this morning. Plan is to have precedex titrated down. Geodon 20 mg IM q6 prn is on board should he get agitated again. It is my impression the patient is suffering from alcohol withdrawal delirium as well as benzo delirium as he was given a total of 20 mg of Ativan on August 07. This was contributing patients agitation and confused presentation. I have lowered the Ativan dosing most recently from 3 mg Q4 to 2 mg Q6 however patient has not been receiving this medication while he is in the ICU. Seroquel has also been increased to 50 mg BID and 100 mg HS. This was also held while patient has been in the ICU. Once patient is more alert his medications should be resumed. Psychiatry will f/u with patient on ThursdayAugust 10, and monitor patient carefully to determine tolerance and effectiveness of these medications. 08/09/17 18:58
[2017-08-10 06:50] LABS: BASO # 0.03 K/mm3 (0.0-2.0); BASO % 0.5 % (0.0-3.0); EOS # 0.3 (0.0-0.7); EOS % 4.5 % (1.5-5.0); GRAN # 3.43 (1.4-6.5); GRAN % 59.4 % (50.0-68.0); HEMOGLOBIN 15.7 g/dL (14.0-18.0); LYMPH # 1.5 (1.2-3.4); LYMPH % 26.6 % (22.0-35.0); MEAN CELL VOLUME 96.2 fl (80.0-105.0); MEAN CORPUSCULAR HEMOGLOBIN 34.7 pg (25.0-35.0); MEAN PLATELET VOLUME 10.7 fl (7.0-11.0); MONO # 0.5 (0.1-0.6); RBC 4.53 10^6/uL (3.5-6.1); RED CELL DISTRIBUTION WIDTH 12.7 % (11.5-14.5); WHITE BLOOD COUNT 5.8 10^3/ul (4.5-11.0)
[2017-08-10] MEDS: Pantoprazole 40 mg EC Tab PO SCH (07:01)
[2017-08-10 07:21] LABS: ALB/GLOB RATIO 1.1 (1.1-1.8); ALBUMIN 3.6 g/dL (3.0-4.8); ALT/SGPT 175 U/L (7-56); AST/SGOT 193 U/L (17-59); BLOOD UREA NITROGEN 9 mg/dL (7-21); CALCIUM 8.8 mg/dL (8.4-10.5); GFR AFRICAN-AMERICAN > 60; GFR NON-AFRICAN AMERICAN > 60
[2017-08-10] MEDS ORDERED: Potassium Chloride 20 mEq ER Tab PO STA (08:01)
[2017-08-10] MEDS ORDERED: Magnesium Oxide 400 mg Tab UD PO STA (08:01)
--- NOTE | 2017-08-10 08:39 | CON ---
DATE: 08/08/2017 HISTORY OF PRESENT ILLNESS: The patient is a 46-year-old male, who is currently being seen by Psychiatry for complications related to alcohol withdrawal. Specifically, the patient appears to be in as he has been actively hallucinating, disorganized, and disoriented. The patient has also had periods with agitation and restrained and continued to be unpredictable. I reviewed Dr. Valerio's notes from yesterday and met with the patient at bedside as well as spoke to nursing staff, which indicated as noted that the patient continued to be unpredictable, disorganized, hallucinating, delusional, labile and medically unstable. He is minimizing his symptoms during my visit and he is quite irritable and difficult to engage in a productive interview. He is not aware of current year, although he does indicate correctly that it is July. The patient tells me that he has been told that he is at [facility]. He wants to sign out AMA and specified that he wants to "see his family." The patient cannot give me reason why he needs to see his family so urgently and he does not appreciate because if the possible consequences including of signing out at this time. He also does not present with logical explanation why he wants to sign out. I agree with Dr. Valerio he continues to lack capacity to leave at this time. His insight and judgment are poor. Relevant psychiatric medications include Ativan 3 mg IV every 4 scheduled as well as 2 mg IV every 2 p.r.n. Please note that the patient received four doses of 2 mg on 08/07/2017 and four doses of 3 mg on 08/07/2017 for a total of 20 mg yesterday. The patient also received Geodon injection on 2 occasions yesterday as well 20 mg. Other medications include Seroquel 50 mg daily and 50 mg at bedtime. Labs and vitals were reviewed by this provider and the pulse is elevated as well as blood pressure; however, that could be due to his agitation as well as the patient is likely getting too many . IMPRESSION: Alcohol withdrawal delirium tremens as well as contributing factor of benzodiazepine delirium. RECOMMENDATIONS: At this time, although the patient is obviously withdrawing from alcohol and Ativan can be quite effective for this withdrawal, too much Ativan can worsen confusion and the patient appears to be over medicated with Ativan at this time, 20 mg in one day is too much for this patient especially it appeared to be given to him for agitation. I have discontinued the p.r.n. order for Ativan and I have emphasized the nursing staff to provide the patient with antipsychotic in lieu of benzodiazepines when the patient is agitated. Ativan should only be given as prescribed, which at this time is at a dose of 3 mg IV every 4. I am uncomfortable with this dose; however, the patient received such a large dose yesterday, I have to at this point taper him from the medications that were given to him yesterday. I planned to continue to taper to 2 mg IV every 4 tomorrow on 08/09/2017. Again, please continue Geodon p.r.n. I have also increased Seroquel to 50 mg b.i.d. and 100 mg at bedtime for the patient's agitation, hallucinations, lability and unpredictability. I agree with medical team's decisions and the patient to stay in ICU as he is medically ill and requires medical observation. I will follow up with the patient in the a.m. on 08/09/2017. Brenda Casey MD
[2017-08-10] MEDS: Folic Acid 1 MG, Thiamine 100 MG, Multivitamin (MVI) 10 ML in Dextrose 5% In Water 1,00... IV SCH (09:10)
[2017-08-10 11:09] VITALS: O2SAT 96
[2017-08-10 15:10] VITALS: TEMP 97.9
[2017-08-10 15:11] VITALS: BP 139/106; PULSE 87; RESP 10
--- NOTE | 2017-08-10 15:38 | CP.PCM.DIS ---
<Justin Vásquez - Last Filed: 08/10/17 19:14> Provider - Provider Date of Admission: 08/06/17 13:37 Attending physician: Martin Lee MD Time Spent in preparation of Discharge (in minutes): 45 Hospital Course - Lab Results Lab Results: Micro Results 08/08/17 19:05 Naris MRSA Culture (Admit) - Final MRSA NOT DETECTED Most Recent Lab Values WBC 5.8 10^3/ul (4.5-11.0) 08/10/17 06:00 RBC 4.53 10^6/uL (3.5-6.1) 08/10/17 06:00 Hgb 15.7 g/dL (14.0-18.0) 08/10/17 06:00 Hct 43.6 % (42.0-52.0) 08/10/17 06:00 MCV 96.2 fl (80.0-105.0) 08/10/17 06:00 MCH 34.7 pg (25.0-35.0) 08/10/17 06:00 MCHC 36.0 g/dl (31.0-37.0) 08/10/17 06:00 RDW 12.7 % (11.5-14.5) 08/10/17 06:00 Plt Count 170 10^3/uL (120.0-450.0) 08/10/17 06:00 MPV 10.7 fl (7.0-11.0) 08/10/17 06:00 Gran % 59.4 % (50.0-68.0) 08/10/17 06:00 Lymph % (Auto) 26.6 % (22.0-35.0) 08/10/17 06:00 [place] % (Auto) 9.0 % (1.0-6.0) H 08/10/17 06:00 Eos % (Auto) 4.5 % (1.5-5.0) 08/10/17 06:00 Baso % (Auto) 0.5 % (0.0-3.0) 08/10/17 06:00 Gran # 3.43 (1.4-6.5) 08/10/17 06:00 Lymph # (Auto) 1.5 (1.2-3.4) 08/10/17 06:00 [place] # (Auto) 0.5 (0.1-0.6) 08/10/17 06:00 Eos # (Auto) 0.3 (0.0-0.7) 08/10/17 06:00 Baso # (Auto) 0.03 K/mm3 (0.0-2.0) 08/10/17 06:00 PT 13.2 SECONDS (9.4-12.5) H 08/09/17 14:30 INR 1.15 (0.93-1.08) H 08/09/17 14:30 APTT 64.7 Seconds (25.1-36.5) H 08/09/17 14:30 Sodium 137 mmol/L (132-148) 08/10/17 06:00 Potassium 3.3 mmol/L (3.6-5.0) L 08/10/17 06:00 Chloride 104 mmol/L (98-107) 08/10/17 06:00 Carbon Dioxide 22 mmol/L (21-33) 08/10/17 06:00 Anion Gap 15 (10-20) 08/10/17 06:00 BUN 9 mg/dL (7-21) 08/10/17 06:00 Creatinine 0.6 mg/dl (0.8-1.5) L 08/10/17 06:00 Est GFR ( Amer) > 60 08/10/17 06:00 Est GFR (Non-Af Amer) > 60 08/10/17 06:00 Random Glucose 151 mg/dL (70-110) H 08/10/17 06:00 Calcium 8.8 mg/dL (8.4-10.5) 08/10/17 06:00 Phosphorus 4.4 mg/dL (2.5-4.5) 08/10/17 06:00 Magnesium 1.8 mg/dL (1.7-2.2) 08/10/17 06:00 Total Bilirubin 1.3 mg/dL (0.2-1.3) 08/10/17 06:00 AST 193 U/L (17-59) H D 08/10/17 06:00 ALT 175 U/L (7-56) H 08/10/17 06:00 Alkaline Phosphatase 125 U/L (38-126) 08/10/17 06:00 Total Protein 6.8 g/dL (5.8-8.3) 08/10/17 06:00 Albumin 3.6 g/dL (3.0-4.8) 08/10/17 06:00 Globulin 3.2 gm/dL 08/10/17 06:00 Albumin/Globulin Ratio 1.1 (1.1-1.8) 08/10/17 06:00 Urine Color Yellow (YELLOW) 08/06/17 04:41 Urine Appearance Clear (CLEAR) 08/06/17 04:41 Urine pH 6.0 (4.7-8.0) 08/06/17 04:41 Ur Specific [place] 1.010 (1.005-1.035) 08/06/17 04:41 Urine Protein Negative mg/dL (<30 mg/dL) 08/06/17 04:41 Urine Glucose (UA) Negative mg/dL (NEGATIVE) 08/06/17 04:41 Urine Ketones Negative mg/dL (NEGATIVE) 08/06/17 04:41 Urine Blood Negative (NEGATIVE) 08/06/17 04:41 Urine Nitrate Negative (NEGATIVE) 08/06/17 04:41 Urine Bilirubin Negative (NEGATIVE) 08/06/17 04:41 Urine Urobilinogen 0.2 E.U./dL (<1 E.U./dL) 08/06/17 04:41 Ur Leukocyte Esterase Negative [place]/uL (NEGATIVE) 08/06/17 04:41 Salicylates < 1 mg/dL (2.0-20.0) L 08/05/17 19:11 Urine Opiates Screen Negative (NEGATIVE) 08/06/17 04:41 Urine Methadone Screen Positive (NEGATIVE) H 08/06/17 04:41 Acetaminophen < 10.0 ug/ml (10.0-20.0) L 08/05/17 19:11 Ur Barbiturates Screen Negative (NEGATIVE) 08/06/17 04:41 Ur Phencyclidine Scrn Negative (NEGATIVE) 08/06/17 04:41 Ur Amphetamines Screen Negative (NEGATIVE) 08/06/17 04:41 U Benzodiazepines Scrn Negative (NEGATIVE) 08/06/17 04:41 U Oth Cocaine Metabols Negative (NEGATIVE) 08/06/17 04:41 U Cannabinoids Screen Negative (NEGATIVE) 08/06/17 04:41 Alcohol, Quantitative 505 mg/dL (0-10) H* 08/05/17 19:11 Hepatitis C RNA [id number] IU/mL (<15) H 08/07/17 09:30 HCV RNA Quant (PCR) 5.93 Log IU/mL (<1.18) H 08/07/17 09:30 - Hospital Course Hospital Course: 46 year old male with past medical history of HTN, chronic back pain, Hepatitis C (known/untreated), and alcohol abuse presents to the hospital acute alcohol intoxication. Patient initially stated he suicidal/homicidal ideation, but after further questioning patient denied. He currently has no suicidal/ homicidal ideation. Patient states he drinks 3 pints of Belia daily. His last alcoholic drink was last night. Patient has been stressed secondary to his ' s several months ago. Patient denies chest pain, shortness of breath, abdominal pain, nausea, vomiting, diarrhea, fever, chills, syncope, change in vision. Past medical history: HTN, chronic back pain, Hepatitis C (known/untreated), and alcohol abuse Surgical History: denies Allergies: PCN -rash Family History: Noncontributory Social History: 1 ppd x 30 years. 3 pints of belia daily. Lives at home by self. Denies illicit drug use. Hospital Course: Patient was admitted to hospital with elevated blood alcohol level of 505 and for initially reporting he wanted to hurt himself. Patient was placed on fall precautions and alcohol withdrawal protocol with ativan scheduled and tapered. While admitted the patient was having episodes of visual hallucinations and agitation overnight and in the morning. Patient was seen by Psychiatry and was deemed incapable to sign out AMA at the risk of him having a alcohol withdrawal. Patient became agitated and was transferred to ICU for precedex sedation. Patient was monitored and re-visited by Psychiatry who deemed him able to sign out AMA and patient signed out AMA from ICU with information to follow up with Dr. Casey as an outpatient. Imagin. EKG:NSR, mildly prolonged qtc 2. Chest xray: negative active disease. Discharge Exam - Head Exam Head Exam: ATRAUMATIC, NORMAL INSPECTION, NORMOCEPHALIC - Eye Exam Eye Exam: EOMI, Normal appearance, PERRL - Respiratory Exam Respiratory Exam: Clear to PA & Lateral, NORMAL BREATHING PATTERN - Cardiovascular Exam Cardiovascular Exam: REGULAR RHYTHM, +S1, +S2 - GI/Abdominal Exam GI & Abdominal Exam: Normal Bowel Sounds, Unremarkable - Neurological Exam Neurological exam: Alert, CN II-XII Intact - Psychiatric Exam Psychiatric exam: Normal Affect, Normal Mood - Skin Skin Exam: Dry, Intact Discharge Plan - Follow Up Plan Condition: FAIR Disposition: AGAINST MEDICAL ADVICE <Martin Lee - Last Filed: 08/11/17 14:15> Provider - Provider Date of Admission: 08/06/17 13:37 Attending physician: Martin Lee MD Hospital Course - Lab Results Lab Results: Micro Results 08/08/17 19:05 Naris MRSA Culture (Admit) - Final MRSA NOT DETECTED Most Recent Lab Values WBC 5.8 10^3/ul (4.5-11.0) 08/10/17 06:00 RBC 4.53 10^6/uL (3.5-6.1) 08/10/17 06:00 Hgb 15.7 g/dL (14.0-18.0) 08/10/17 06:00 Hct 43.6 % (42.0-52.0) 08/10/17 06:00 MCV 96.2 fl (80.0-105.0) 08/10/17 06:00 MCH 34.7 pg (25.0-35.0) 08/10/17 06:00 MCHC 36.0 g/dl (31.0-37.0) 08/10/17 06:00 RDW 12.7 % (11.5-14.5) 08/10/17 06:00 Plt Count 170 10^3/uL (120.0-450.0) 08/10/17 06:00 MPV 10.7 fl (7.0-11.0) 08/10/17 06:00 Gran % 59.4 % (50.0-68.0) 08/10/17 06:00 Lymph % (Auto) 26.6 % (22.0-35.0) 08/10/17 06:00 [place] % (Auto) 9.0 % (1.0-6.0) H 08/10/17 06:00 Eos % (Auto) 4.5 % (1.5-5.0) 08/10/17 06:00 Baso % (Auto) 0.5 % (0.0-3.0) 08/10/17 06:00 Gran # 3.43 (1.4-6.5) 08/10/17 06:00 Lymph # (Auto) 1.5 (1.2-3.4) 08/10/17 06:00 [place] # (Auto) 0.5 (0.1-0.6) 08/10/17 06:00 Eos # (Auto) 0.3 (0.0-0.7) 08/10/17 06:00 Baso # (Auto) 0.03 K/mm3 (0.0-2.0) 08/10/17 06:00 PT 13.2 SECONDS (9.4-12.5) H 08/09/17 14:30 INR 1.15 (0.93-1.08) H 08/09/17 14:30 APTT 64.7 Seconds (25.1-36.5) H 08/09/17 14:30 Sodium 137 mmol/L (132-148) 08/10/17 06:00 Potassium 3.3 mmol/L (3.6-5.0) L 08/10/17 06:00 Chloride 104 mmol/L (98-107) 08/10/17 06:00 Carbon Dioxide 22 mmol/L (21-33) 08/10/17 06:00 Anion Gap 15 (10-20) 08/10/17 06:00 BUN 9 mg/dL (7-21) 08/10/17 06:00 Creatinine 0.6 mg/dl (0.8-1.5) L 08/10/17 06:00 Est GFR ( Amer) > 60 08/10/17 06:00 Est GFR (Non-Af Amer) > 60 08/10/17 06:00 Random Glucose 151 mg/dL (70-110) H 08/10/17 06:00 Calcium 8.8 mg/dL (8.4-10.5) 08/10/17 06:00 Phosphorus 4.4 mg/dL (2.5-4.5) 08/10/17 06:00 Magnesium 1.8 mg/dL (1.7-2.2) 08/10/17 06:00 Total Bilirubin 1.3 mg/dL (0.2-1.3) 08/10/17 06:00 AST 193 U/L (17-59) H D 08/10/17 06:00 ALT 175 U/L (7-56) H 08/10/17 06:00 Alkaline Phosphatase 125 U/L (38-126) 08/10/17 06:00 Total Protein 6.8 g/dL (5.8-8.3) 08/10/17 06:00 Albumin 3.6 g/dL (3.0-4.8) 08/10/17 06:00 Globulin 3.2 gm/dL 08/10/17 06:00 Albumin/Globulin Ratio 1.1 (1.1-1.8) 08/10/17 06:00 Urine Color Yellow (YELLOW) 08/06/17 04:41 Urine Appearance Clear (CLEAR) 08/06/17 04:41 Urine pH 6.0 (4.7-8.0) 08/06/17 04:41 Ur Specific [place] 1.010 (1.005-1.035) 08/06/17 04:41 Urine Protein Negative mg/dL (<30 mg/dL) 08/06/17 04:41 Urine Glucose (UA) Negative mg/dL (NEGATIVE) 08/06/17 04:41 Urine Ketones Negative mg/dL (NEGATIVE) 08/06/17 04:41 Urine Blood Negative (NEGATIVE) 08/06/17 04:41 Urine Nitrate Negative (NEGATIVE) 08/06/17 04:41 Urine Bilirubin Negative (NEGATIVE) 08/06/17 04:41 Urine Urobilinogen 0.2 E.U./dL (<1 E.U./dL) 08/06/17 04:41 Ur Leukocyte Esterase Negative [place]/uL (NEGATIVE) 08/06/17 04:41 Salicylates < 1 mg/dL (2.0-20.0) L 08/05/17 19:11 Urine Opiates Screen Negative (NEGATIVE) 08/06/17 04:41 Urine Methadone Screen Positive (NEGATIVE) H 08/06/17 04:41 Acetaminophen < 10.0 ug/ml (10.0-20.0) L 08/05/17 19:11 Ur Barbiturates Screen Negative (NEGATIVE) 08/06/17 04:41 Ur Phencyclidine Scrn Negative (NEGATIVE) 08/06/17 04:41 Ur Amphetamines Screen Negative (NEGATIVE) 08/06/17 04:41 U Benzodiazepines Scrn Negative (NEGATIVE) 08/06/17 04:41 U Oth Cocaine Metabols Negative (NEGATIVE) 08/06/17 04:41 U Cannabinoids Screen Negative (NEGATIVE) 08/06/17 04:41 Alcohol, Quantitative 505 mg/dL (0-10) H* 08/05/17 19:11 Hepatitis C RNA [id number] IU/mL (<15) H 08/07/17 09:30 HCV RNA Quant (PCR) 5.93 Log IU/mL (<1.18) H 08/07/17 09:30 Attending/Attestation - Attestation I have personally seen and examined this patient.: Yes I have fully participated in the care of the patient.: Yes I have reviewed all pertinent clinical information, including history, physical exam and plan: Yes Notes (Text): 08/11/17 14:10 attending note; Patient seen and examined with resident in ICU. Patient is a 46-year-old male admitted with acute alcohol intoxication. Treated with Precedex. Currently off precedex. Continue Ativan when necessary. Psychiatric evaluation appreciated. Patient is currently alert and awake. History of hepatitis C. Not treated. patient is advised to follow-up with [facility] for further treatment. 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 Patient was educated multiple times to stay and get medical treatment. Patient signed AGAINST MEDICAL ADVICE. Diagnosis; Alcohol abuse Hepatitis C Elevated LFTs Noncompliance with follow-up
--- NOTE | 2017-08-10 23:43 | PN ---
DATE: 08/10/2017 SUBJECTIVE: The patient is a 46-year-old male, long-term debilitating history of alcohol use disorder. The patient had delirium tremens, that is why he was on the medical side, and subsequently he went to CCU unit; after that, he was downgraded to telemetry unit. Over the weekend, the patient had episodes of agitation in the context of the alcohol withdrawal symptoms. The patient was seen by Dr. Casey over the weekend , this chart writer is taking over. The patient was seen and examined today as per medical team report patient wanted to be discharged against medical advice. Prolonged conversation took place today with attending Dr. Lee, as per pt might benefit from 24-48hr observation, to make sure no withdrawal symptoms and delirium is continuously improving, as well pt was found to have Hep C. Despite the fact pt was see in CCU, but pt was officially downgraded to Telemetry unit. Patient's vital signs are stable and improving, patient's tachycardia resolved, patient had blood pressure elevated at 3:00 p.m., could be related to the fact that this chart writer talked to the patient about loss of his . The patient presented to be alert and oriented to self, time and place. The patient reported that he was drunk prior to coming to the hospital and that is why he was verbalizing thoughts of killing himself. The patient reported that his in January and he is dealing with the loss by drinking alcohol. The patient reported that he lives in the same apartment where they used to live together, and her belongings remind him about his loss. The patient reported that he lost her due to accidental overdose on drugs. The patient reported that they had 6-year-old daughter together. The patient reported that he had joint custody with his [id number] and himself. Right now, girl is under custody of his [id number] . The patient was tearful when she was talking about his ex- who . The patient was showing pictures on the cell phone. The patient reported that he wants to obtain his disability for back pain in order to spend more time with his daughter. Patient is aware of the diagnosis of alcohol withdrawals. The patient seems to have good understanding that he has hepatitis C. The patient reported that he wants to be on newer medication for his hepatitis C. This chart writer advised the patient to follow up with police detective as well as Infectious disease team. The patient verbalized understanding. The patient wants to be followed up with outpatient psychiatrist. This chart writer educated the patient about clinic in [place] as well as [facility], about [facility], about [facility]. The patient does not want to stay in the hospital. The patient is obviously depressed, but adamantly denied thoughts of killing himself. This chart writer offered the patient admission to the psychiatric inpatient unit, but as expected, the patient declined that offer. The patient does not present to be psychotic. The patient does not present to be anxious, but depressed. The patient reported that he has difficulty to fall asleep and to stay asleep as well. MEDICATIONS: Reviewed; patient is on Tylenol, Catapres, folic acid, heparin, Ativan 2 mg IV push every 6 hours scheduled, last dose was 1:30. The patient is on Geodon; last time Geodon was given yesterday at the morning time, but for the past 24 hours, patient is in good behavioral control. Long discussion with the nursing staff. The patient did not express any thoughts of harming himself, was able to ambulate, was pleasant and participating in treatment plan, was waiting patiently to see this chart writer for clearance. LABORATORY DATA. Most recent was from today, seems to be within normal limits. Chemistry, potassium is 3.3. AST and ALT are trending down to compare with 425 and 194 respectively, today 193 and 175 AST and ALT respectively. Toxicology, alcohol level was more than 500. Hepatitis C RNA 8,060,467, and elevated PCR hepatitis C RNA. MENTAL STATUS EXAMINATION: The patient presented to be alert and oriented, pleasant, cooperative, tearful, good eye contact. Speech was underproductive, but better organized. The patient described his mood as depressed due to loss of his . Affect was tearful, and mood congruent. Thought process coherent and goal directed. Thought content: the patient denied visual, auditory or tactile hallucinations. Denied paranoid ideation, pt does not present to be psychotic or responding to internal stimuli. The patient denied thoughts of harming himself or others, denied intent or plan. Insight and judgment seems to be improving. Impulses are well controlled. The patient was observed talking to the family, said that it was his cousin, who seems to be involved into the patient's care. IMPRESSION: The patient has alcohol use disorder; alcohol withdrawal delirium, improved; rule out major depressive disorder, rule out adjustment disorder with depressed and anxious mood, rule out substance-induced mood disorder and anxiety disorder. RECOMMENDATIONS: Patient has factual understanding of diagnosis alcohol withdrawals which are better, potential benefits of treatment as well as risk and consequences without treatment. The patient has insight and appreciation, "I know that I am depressed an I was drinking a lot, but I feel good now, I need to go back to work, I need to pay my bills, I am willing to go for outpatient treatment, please give me the phone number and appointment". The patient has reasoning ability. pt was appreciative for the treatment, patient was able to indicate his preferences and he wanted to be followed up with outpatient psychiatrist as well as ID and medical team. The patient has capacity to leave against medical advice. Medical team was recommended to provide the patient with benzodiazepines tapering dose as well as information about the psychiatric office here in [place] as well as [facility], [facility] outpatient clinic, [facility] outpatient, and [facility] provided. Pt was advised to go to AA, NA meetings. Pt deems not in imminent danger to self or others, pt ambulates with steady gait , pt was able to tolerate food, pt was not psychotic, not agitated, cooperative. pt pose no imminent danger to self or others. It took more than 45 minutes of this chart writer's time to make assessment, discuss with medical attending Dr. Lee. Thank you very much for letting me participate in care of your patient. Roxana Valerio MD [facility]
[2017-08-11] MEDS ORDERED: Multivitamin Therapeutic Tab PO SCH (10:00)
== END 2017-08-10 15:00 | disposition left against medical advice (07) | DRG 749 ==
LOC: ED 17:57 → ERH 08-06 13:37 → 2RNO 08-06 20:48 → ICU 08-08 10:38 → CCU 08-09 19:21
PROVIDERS: ADMIT Internal Medicine; ATTEND Internal Medicine
DX: F10.231 Alcohol dependence with withdrawal delirium (principal); B19.20 Unspecified viral hepatitis C without hepatic coma; E87.6 Hypokalemia; E86.0 Dehydration; I10 Essential (primary) hypertension; R45.851 Suicidal ideations; Y90.8 Blood alcohol level of 240 mg/100 ml or more; M54.9 Dorsalgia, unspecified; G89.29 Other chronic pain; R41.0 Disorientation, unspecified; T42.4X5A Adverse effect of benzodiazepines, initial encounter; Z91.19 Patient's noncompliance with other medical treatment and regimen

== ENCOUNTER 2017-08-19 04:35 | Emergency (ER) | payer MEDICAID ==
[2017-08-19 04:38] VITALS: BMI 22.0
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
[2017-08-19 05:00] VITALS: TEMP 98.1
[2017-08-19] MEDS ORDERED: Silver Sulfadiazine 1% Cream (25 gm) TP STA (05:40)
[2017-08-19 06:52] VITALS: BP 132/78; PULSE 78; RESP 17; O2SAT 100
--- NOTE | 2017-08-19 10:35 | RAD ---
PROCEDURE: Right Hand Radiographs. HISTORY: trauma COMPARISON: None. FINDINGS: BONES: There is an old fracture deformity of the 5th metacarpal JOINTS: Normal. No osteoarthritic changes. SOFT TISSUES: Normal. OTHER FINDINGS: None. IMPRESSION: No acute findings
== END 2017-08-19 06:38 | disposition home or self-care (01) ==
LOC: ED 04:35
DX: S60.221A Contusion of right hand, initial encounter (principal); Y08.89XA Assault by other specified means, initial encounter; Y92.9 Unspecified place or not applicable; Z87.81 Personal history of (healed) traumatic fracture

== ENCOUNTER 2017-09-09 06:22 | Inpatient (IN) | payer MEDICAID ==
[2017-09-09 07:13] LABS: URINE BILIRUBIN NEGATIVE (NEGATIVE); URINE BLOOD MODERATE (NEGATIVE); URINE GLUCOSE (UA) NEGATIVE (NEGATIVE); URINE LEUKOCYTE ESTERASE NEGATIVE Leu/uL (NEGATIVE); URINE PROTEIN TRACE mg/dL (<30 mg/dL)
[2017-09-09 07:14] LABS: BASO # 0.07 K/mm3 (0.0-2.0); BASO % 1.1 % (0.0-3.0); EOS # 0.2 (0.0-0.7); GRAN # 3.28 (1.4-6.5); GRAN % 52.1 % (50.0-68.0); HEMOGLOBIN 15.2 g/dL (14.0-18.0); LYMPH % 32.2 % (22.0-35.0); MEAN CELL VOLUME 94.3 fl (80.0-105.0); MEAN CORPUSCULAR HEMOGLOBIN 33.5 pg (25.0-35.0); MEAN CORPUSCULAR HGB CONC 35.5 g/dl (31.0-37.0); MEAN PLATELET VOLUME 10.3 fl (7.0-11.0); MONO # 0.7 (0.1-0.6); MONO % 11.6 % (1.0-6.0); RBC 4.54 10^6/uL (3.5-6.1); RED CELL DISTRIBUTION WIDTH 12.4 % (11.5-14.5); WHITE BLOOD COUNT 6.3 10^3/ul (4.5-11.0)
[2017-09-09 07:15] LABS: URINE COLOR YELLOW (YELLOW)
[2017-09-09 07:16] LABS: URINE APPEARANCE CLEAR (CLEAR)
[2017-09-09 07:23] LABS: ALB/GLOB RATIO 1.1 (1.1-1.8); ALT/SGPT 151 U/L (7-56); AST/SGOT 344 U/L (17-59); BLOOD UREA NITROGEN 5 mg/dL (7-21); CALCIUM 8.7 mg/dL (8.4-10.5); GFR AFRICAN-AMERICAN > 60; GFR NON-AFRICAN AMERICAN > 60
[2017-09-09 07:28] LABS: URINE BACTERIA MOD (NEG); URINE WBC 0 - 2 /hpf (0-6)
[2017-09-09] MEDS ORDERED: Sodium Chloride 0.9% 1,000 ML IV STA (07:39)
[2017-09-09] MEDS ORDERED: Morphine 4 mg/ml ISec IVP STA (07:39)
--- NOTE | 2017-09-09 07:47 | ED PDOC ---
Arrival/HPI - General Historian: Patient - History of Present Illness Time/Duration: 24 hours Symptom Onset: Gradual Activities at Onset: Light Context: Home <Miguel Liriano - Last Filed: 09/09/17 10:39> <ColeChalo L - Last Filed: 09/09/17 10:50> - General Chief Complaint: Abdominal Pain Time Seen by Provider: 09/09/17 07:20 - History of Present Illness Narrative History of Present Illness (Text): 09/09/17 07:42 This is a 46 year old male with PMH of HT, Hep C, substance abuse, alcohol dependence, chronic back pain, anxiety and major depressive disorder presenting to the ER today for abdominal pain and alcohol withdrawal. Patient has history of alcohol dependence and states he drank 4 pints last night. Patient admits to nausea and vomiting x4 this morning. He also has associated LLQ abdominal pain that extends to his left side. Pain is currently rated at 10/10. He states he has similar pain symptoms in past from alcohol withdrawal. Denies chest pain, SOB, fevers, and headaches, and testicular swelling/pain, hematemesis, hematochezia, urinary symptoms, dysuria, and chills. (Miguel Liriano) Past Medical History - Provider Review Nursing Documentation Reviewed: Yes - Past History Past History: No Previous - Infectious Disease Hx of Infectious Diseases: None - Tetanus Immunization Tetanus Immunization: Unknown, Up to Date - Past Medical History Past Medical History: No Previous - Cardiac Hx Hypertension: Yes - Pulmonary Hx Respiratory Disorders: No - Neurological Hx Neurological Disorder: No - HEENT Hx HEENT Disorder: No - Renal Hx Renal Disorder: No - Endocrine/Metabolic Hx Endocrine Disorders: No - Hematological/Oncological Hx Blood Disorders: No - Integumentary Hx Dermatological Disorder: No - Musculoskeletal/Rheumatological Hx Musculoskeletal Disorders: Yes Hx Back Pain: Yes Hx Falls: Yes Other/Comment: CHRONIC BACK PAIN - Gastrointestinal Hx Gastrointestinal Disorders: No - Genitourinary/Gynecological Hx Genitourinary Disorders: No - Psychiatric Hx Psychophysiologic Disorder: Yes Hx Depression: Yes Hx Substance Use: No Other/Comment: Past drug user - Past Surgical History Past Surgical History: No Previous - Anesthesia Hx Anesthesia: No Hx Anesthesia Reactions: No Hx Malignant Hyperthermia: No - Suicidal Assessment Feels Threatened In Home Enviroment: No <Miguel Liriano - Last Filed: 09/09/17 10:39> Family/Social History - Physician Review Nursing Documentation Reviewed: Yes Family/Social History: Unknown Family HX Smoking Status: Heavy Smoker > 10 Cigarettes Daily Hx Alcohol Use: Yes (beer daily) Frequency of alcohol use: Daily Hx Substance Use: No Substance used: COCAINE/IV DRUG USE HEROIN Hx Substance Use Treatment: No <Miguel Liriano - Last Filed: 09/09/17 10:39> Allergies/Home Meds <Miguel Liriano - Last Filed: 09/09/17 10:39> <Chalo Galvan - Last Filed: 09/09/17 10:50> Allergies/Adverse Reactions: Allergies Penicillins Allergy (Verified 08/19/17 04:38) RASH pentazocine lactate [From Talwin] Allergy (Verified 08/19/17 04:38) ANAPHYLAXIS Home Medications: Home Meds Medication Instructions Recorded Confirmed Acetaminophen/Oxycodone Hydr 1 tab PO QID 08/05/17 09/09/17 [Oxycodone and Acetaminophen 325 mg-2.5 mg] Alprazolam [Xanax] 2 mg PO QID 08/05/17 09/09/17 Review of Systems - Physician Review All systems were reviewed & negative as marked: Yes - Review of Systems Constitutional: absent: Fevers, Night Sweats Eyes: Normal. absent: Vision Changes, Eye Pain ENT: Normal. absent: Hearing Changes Respiratory: Normal. absent: SOB Cardiovascular: Normal. absent: Chest Pain Gastrointestinal: Abdominal Pain, Nausea, Vomiting. absent: Diarrhea, Hematochezia, Hematemesis Genitourinary Male: Normal. absent: Dysuria, Frequency, Hematuria Musculoskeletal: Back Pain Skin: Normal. absent: Rash, Pruritis Neurological: Normal. absent: Headache Endocrine: Normal. absent: Polyuria Hemo/Lymphatic: Normal Psychiatric: Anxiety <Miguel Liriano - Last Filed: 09/09/17 10:39> Physical Exam Vital Signs Reviewed: Yes Temperature: Afebrile Blood Pressure: Hypertensive Pulse: Regular Respiratory Rate: Normal Appearance: Positive for: Well-Appearing, Non-Toxic, Comfortable Pain Distress: None Mental Status: Positive for: Alert and Oriented X 3 - Systems Exam Head: Present: Atraumatic, Normocephalic Pupils: Present: PERRL. No: Non-Reactive, Pinpoint Extroacular Muscles: Present: EOMI. No: Gaze Palsy Conjunctiva: Present: Normal Mouth: Present: Moist Mucous Membranes Neck: Present: Normal Range of Motion Respiratory/Chest: Present: Clear to Auscultation, Good Air Exchange. No: Respiratory Distress, Accessory Muscle Use Cardiovascular: Present: Regular Rate and Rhythm, Normal S1, S2. No: Murmurs Abdomen: Present: Tenderness, Normal Bowel Sounds, McBurney's Point Tender. No : Distention, Peritoneal Signs, Rebound, Guarding, Rovsing's Sign Present Back: Present: Normal Inspection, Midline Tenderness. No: CVA Tenderness Upper Extremity: Present: Normal Inspection. No: Cyanosis, Edema Lower Extremity: Present: Normal Inspection. No: Edema Neurological: Present: Speech Normal, Motor Func Grossly Intact, Normal Sensory Function Skin: Present: Warm, Dry, Normal Color. No: Rashes Psychiatric: Present: Alert, Anxious, Agitated <Miguel Liriano - Last Filed: 09/09/17 10:39> Vital Signs Temp Pulse Resp BP Pulse Ox 09/09/17 09:34 74 17 138/86 98 09/09/17 09:06 77 18 154/100 H 98 09/09/17 07:30 78 18 155/109 H 99 09/09/17 06:32 98.0 F 75 18 155/89 H 97 Medical Decision Making <Miguel Liriano - Last Filed: 09/09/17 10:39> <Chalo Galvan - Last Filed: 09/09/17 10:50> ED Course and Treatment: 09/09/17 07:51 This is a 46 year old male with PMH of HT, Hep C, substance abuse, alcohol dependence, chronic back pain, anxiety and major depressive disorder presenting to the ER today for abdominal pain and alcohol withdrawal. Differential not limited to: alcohol withdrawel vs. substance abuse vs. kidney stone vs appendicitis Plan: -CBC, CMP -U/A, drug screen, alcohol level -morphine, zofran, ativan -CT abd/pelvis Progress: 09/09/17 07:57 CIWA score of 13. 09/09/17 10:06 Vitals stable, afebrile. Continues to complain of nausea and agitation. Will give ativan and famotidine. 09/09/17 10:40 CT abd/pelvis: no acute findings. (Miguel Liriano) 09/09/17 09:57 Patient Seen With Resident: In agreement with resident note which contains more details about the patient. Patient was seen and evaluated with resident. Came up with plan and treatment together.. Patient was given Ativan 2mg x 2, Banana Bag, Pepcid, Morphine, Zofran and IVF. He continues to have tremors. There is concern for alcohol withdrawal that will need admission for treatment. (Chalo Galvan) - Lab Interpretations Lab Results: 09/09/17 06:30 09/09/17 06:30 Lab Results 09/09/17 09:00: Urine Opiates Screen Negative, Urine Methadone Screen Negative, Ur Barbiturates Screen Negative, Ur Phencyclidine Scrn Negative, Ur Amphetamines Screen Negative, U Benzodiazepines Scrn Negative, U Oth Cocaine Metabols Negative, U Cannabinoids Screen Negative 09/09/17 06:30: Alcohol, Quantitative 197 H 09/09/17 06:30: Sodium 142, Potassium 3.2 L, Chloride 104, Carbon Dioxide 26, Anion Gap 15, BUN 5 L, Creatinine 0.7 L, Est GFR ( Amer) > 60, Est GFR ( Non-Af Amer) > 60, Random Glucose 119 H, Calcium 8.7, Total Bilirubin 1.1, AST 344 H D, ALT 151 H, Alkaline Phosphatase 149 H, Total Protein 7.5, Albumin 4.0, Globulin 3.5, Albumin/Globulin Ratio 1.1, Lipase 270 09/09/17 06:30: Urine Color Yellow, Urine Appearance Clear, Urine pH 6.0, Ur Specific [place] 1.020, Urine Protein Trace H, Urine Glucose (UA) Negative, Urine Ketones Negative, Urine Blood Moderate H, Urine Nitrate Negative, Urine Bilirubin Negative, Urine Urobilinogen 1.0 H, Ur Leukocyte Esterase Negative, Urine RBC 10 - 15, Urine WBC 0 - 2, Ur Epithelial Cells None, Urine Bacteria Mod 09/09/17 06:30: WBC 6.3, RBC 4.54, Hgb 15.2, Hct 42.8, MCV 94.3, MCH 33.5, MCHC 35.5, RDW 12.4, Plt Count 155, MPV 10.3, Gran % 52.1, Lymph % (Auto) 32.2, [place] % (Auto) 11.6 H, Eos % (Auto) 3.0, Baso % (Auto) 1.1, Gran # 3.28, Lymph # (Auto ) 2.0, [place] # (Auto) 0.7 H, Eos # (Auto) 0.2, Baso # (Auto) 0.07 - RAD Interpretation Radiology Orders: 09/09/17 07:39 ABD & PELVIS W/O PO OR IV CONT [CT] Stat - Medication Orders Current Medication Orders: Discontinued Medications Sodium Chloride (Sodium Chloride 0.9%) 1,000 mls @ 999 mls/hr IV .Q1H1M STA Stop: 09/09/17 08:39 Last Admin: 09/09/17 07:40 Dose: 999 mls/hr eMAR Start Stop Document 09/09/17 07:40 DINORA (Rec: 09/09/17 07:53 DINORA [id number]) Intravenous Solution Start Date 09/09/17 Start Time 07:40 End Date 09/09/17 End time 08:40 Total Infusion Time 60 Multivitamins/Vitamin C 10 ml/Thiamine HCl 100 mg/ Folic Acid 1 mg/ Dextrose 1, 011.2 mls @ 1,000 mls/hr IV .Q1H1M ONE Stop: 09/09/17 09:14 Last Admin: 09/09/17 09:01 Dose: 1,000 mls/hr eMAR Start Stop Document 09/09/17 09:01 DINORA (Rec: 09/09/17 09:02 DINORA BUCKNER-PC) Intravenous Solution Start Date 09/09/17 Start Time 09:02 End Date 09/09/17 End time 10:02 Total Infusion Time 60 Famotidine (Pepcid 20mg/50ml Premix) 20 mg in 50 mls @ 100 mls/hr IVPB STAT STA Stop: 09/09/17 10:31 Last Admin: 09/09/17 10:15 Dose: 100 mls/hr eMAR Start Stop Document 09/09/17 10:15 DINORA (Rec: 09/09/17 10:16 DINORA [id number]) Intravenous Solution Start Date 09/09/17 Start Time 10:15 End Date 09/09/17 End time 10:30 Total Infusion Time 15 Lorazepam (Ativan) 2 mg IVP ONCE ONE PRN Reason: Protocol Stop: 09/09/17 07:48 Last Admin: 09/09/17 08:55 Dose: 2 mg IVP Administration Document 09/09/17 08:55 SZA (Rec: 09/09/17 08:59 DINORA [id number]) Charges for Administration # of IVP Administrations 1 Lorazepam (Ativan) 2 mg IVP ONCE ONE PRN Reason: Protocol Stop: 09/09/17 10:03 Last Admin: 09/09/17 10:15 Dose: 2 mg IVP Administration Document 09/09/17 10:15 DINORA (Rec: 09/09/17 10:15 DINORA [id number]) Charges for Administration # of IVP Administrations 1 Morphine Sulfate (Morphine) 4 mg IVP STAT STA Stop: 09/09/17 07:40 Last Admin: 09/09/17 07:53 Dose: 4 mg MAR Pain Assessment Document 09/09/17 07:53 DINORA (Rec: 09/09/17 07:53 DINORA BUCKNER-PC) Pain Reassessment Is this a pain reassessment? No Sleep Is patient sleeping during reassessment? No Presence of Pain Presence of Pain Yes IVP Administration Document 09/09/17 07:53 DINORA (Rec: 09/09/17 07:53 DINORA BUCKNER-PC) Charges for Administration # of IVP Administrations 1 Ondansetron HCl (Zofran Inj) 4 mg IVP STAT STA Stop: 09/09/17 07:40 Last Admin: 09/09/17 07:53 Dose: 4 mg IVP Administration Document 09/09/17 07:53 DINORA (Rec: 09/09/17 07:53 DINORA BUCKNER-PC) Charges for Administration # of IVP Administrations 1 Ondansetron HCl (Zofran Inj) 4 mg IVP STAT STA Stop: 09/09/17 09:50 Last Admin: 09/09/17 10:01 Dose: 4 mg IVP Administration Document 09/09/17 10:01 SZJazzmine (Rec: 09/09/17 10:01 DINORA [id number]) Charges for Administration # of IVP Administrations 1 Potassium Chloride (K-Dur 20 Meq Er Tab) 40 meq PO STAT STA Stop: 09/09/17 08:38 Last Admin: 09/09/17 09:00 Dose: 40 meq - PA / EVENT SPECIALIST / Resident Statement / has reviewed & agrees with the documentation as recorded. ALEXANDRA has examined the patient and agrees with the treatment plan. <Miguel Liriano - Last Filed: 09/09/17 10:39> Disposition/Present on Arrival - Present on Arrival History of DVT/PE: No History of Uncontrolled Diabetes: No Urinary Catheter: No History of Decub. Ulcer: No History Surgical Site Infection Following: None <Miguel Liriano - Last Filed: 09/09/17 10:39> - Present on Arrival Any Indicators Present on Arrival: No - Disposition Have Diagnosis and Disposition been Completed?: Yes Disposition Time: 10:50 <Chalo Galvan - Last Filed: 09/09/17 10:50> - Disposition Diagnosis: Alcohol withdrawal Disposition: HOSPITALIZED Condition: FAIR
[2017-09-09 08:12] LABS: LIPASE 270 U/L (23-300)
[2017-09-09] MEDS ORDERED: Multivitamin (MVI) 10 ML, Thiamine 100 MG, Folic Acid 1 MG in Dextrose 5% In Water 1,00... IV ONE (08:14)
[2017-09-09] MEDS ORDERED: Potassium Chloride 20 mEq ER Tab PO STA (08:37)
--- NOTE | 2017-09-09 09:01 | CT ---
Date of service: 09/09/2017 PROCEDURE: CT Abdomen and Pelvis without intravenous contrast HISTORY: LLQ abdominal pain COMPARISON: CT 06/07/2017 TECHNIQUE: Technique. Contrast dose: Without contrast Radiation dose: Total exam DLP = 358 mGy-cm. This CT exam was performed using one or more of the following dose reduction techniques: Automated exposure control, adjustment of the mA and/or kV according to patient size, and/or use of iterative reconstruction technique. FINDINGS: LOWER THORAX: Unremarkable. LIVER: Unremarkable. No gross lesion or ductal dilatation. GALLBLADDER AND BILE DUCTS: Unremarkable. PANCREAS: Unremarkable. No gross lesion or ductal dilatation. SPLEEN: Unremarkable. ADRENALS: Unremarkable. No mass. KIDNEYS AND URETERS: Unremarkable. No hydronephrosis. No solid mass. VASCULATURE: Unremarkable. No aortic aneurysm. BOWEL: Unremarkable. No obstruction. No gross mural thickening. APPENDIX: Unremarkable. Normal appendix. PERITONEUM: Unremarkable. No free fluid. No free air. LYMPH NODES: Unremarkable. No enlarged lymph nodes. BLADDER: Unremarkable. REPRODUCTIVE: Unremarkable. BONES: No acute fracture. OTHER FINDINGS: None. IMPRESSION: No acute findings
[2017-09-09 09:42] LABS: BARBITURATES, UR NEGATIVE (NEGATIVE); BENZODIAZEPINES, UR NEGATIVE (NEGATIVE); OPIATES, UR NEGATIVE (NEGATIVE); PHENCYCLIDINE, UR NEGATIVE (NEGATIVE)
[2017-09-09] MEDS ORDERED: Famotidine 20mg/50ml 20 MG/50 ML BAG IVPB STA (10:02)
[2017-09-09] MEDS ORDERED: Multivitamin (MVI) 10 ML, Thiamine 100 MG, Folic Acid 1 MG in Sodium Chloride 0.9% 1,00... IV ONE ×2 (10:47→11:59)
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
[2017-09-09] MEDS: Pantoprazole 40 mg EC Tab PO SCH (13:20)
[2017-09-09 16:16] VITALS: BMI 25.8
[2017-09-09] MEDS ORDERED: Pneumococcal 23-Valent Vaccine IM ONE (16:16)
--- NOTE | 2017-09-09 20:13 | CARD ---
APPROVED REPORT Date of service: 09/09/2017 EKG Measurement Heart [id number] MD [id number] <Conclusion> Normal sinus rhythm Normal ECG
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
[2017-09-10] MEDS: Pantoprazole 40 mg EC Tab PO SCH (06:02)
[2017-09-10 06:26] LABS: BASO # 0.06 K/mm3 (0.0-2.0); BASO % 1.3 % (0.0-3.0); EOS # 0.3 (0.0-0.7); EOS % 5.2 % (1.5-5.0); GRAN # 2.82 (1.4-6.5); GRAN % 58.8 % (50.0-68.0); HEMOGLOBIN 16.2 g/dL (14.0-18.0); LYMPH # 1.2 (1.2-3.4); LYMPH % 25.7 % (22.0-35.0); MEAN CORPUSCULAR HEMOGLOBIN 33.6 pg (25.0-35.0); MEAN CORPUSCULAR HGB CONC 35.8 g/dl (31.0-37.0); MEAN PLATELET VOLUME 10.1 fl (7.0-11.0); MONO # 0.4 (0.1-0.6); RBC 4.82 10^6/uL (3.5-6.1); RED CELL DISTRIBUTION WIDTH 12.4 % (11.5-14.5); WHITE BLOOD COUNT 4.8 10^3/ul (4.5-11.0)
[2017-09-10 07:06] LABS: ALBUMIN 3.7 g/dL (3.0-4.8); ALT/SGPT 142 U/L (7-56); AST/SGOT 257 U/L (17-59); BLOOD UREA NITROGEN 3 mg/dL (7-21); GFR AFRICAN-AMERICAN > 60; GFR NON-AFRICAN AMERICAN > 60
[2017-09-10] MEDS ORDERED: Potassium Chloride 40 mEq/30 ml LIQ UD PO ONE (07:36)
[2017-09-10] MEDS ORDERED: Multivitamin Therapeutic Tab PO SCH (08:00)
[2017-09-10] MEDS ORDERED: Oxycodone/Acetaminophen 2.5/325 mg Tab PO STA (22:10)
[2017-09-11 02:31] VITALS: TEMP 97.5
[2017-09-11] MEDS ORDERED: Oxycodone/Acetaminophen 2.5/325 mg Tab PO STA (04:27)
[2017-09-11 04:36] VITALS: BP 128/86; RESP 20; O2SAT 98
[2017-09-11] MEDS: Pantoprazole 40 mg EC Tab PO SCH (06:49)
[2017-09-11 07:09] LABS: BASO # 0.03 K/mm3 (0.0-2.0); BASO % 0.6 % (0.0-3.0); EOS # 0.3 (0.0-0.7); EOS % 5.7 % (1.5-5.0); GRAN # 2.86 (1.4-6.5); GRAN % 56.3 % (50.0-68.0); HEMOGLOBIN 16.6 g/dL (14.0-18.0); LYMPH # 1.5 (1.2-3.4); LYMPH % 28.7 % (22.0-35.0); MEAN CELL VOLUME 94.9 fl (80.0-105.0); MEAN CORPUSCULAR HGB CONC 35.9 g/dl (31.0-37.0); MEAN PLATELET VOLUME 10.3 fl (7.0-11.0); MONO # 0.4 (0.1-0.6); MONO % 8.7 % (1.0-6.0); RBC 4.88 10^6/uL (3.5-6.1); RED CELL DISTRIBUTION WIDTH 12.3 % (11.5-14.5); WHITE BLOOD COUNT 5.1 10^3/ul (4.5-11.0)
[2017-09-11 07:13] VITALS: PULSE 66
[2017-09-11 07:38] LABS: ALB/GLOB RATIO 1.1 (1.1-1.8); ALBUMIN 4.1 g/dL (3.0-4.8); ALT/SGPT 152 U/L (7-56); AST/SGOT 226 U/L (17-59); BLOOD UREA NITROGEN 6 mg/dL (7-21); CALCIUM 9.6 mg/dL (8.4-10.5); GFR AFRICAN-AMERICAN > 60; GFR NON-AFRICAN AMERICAN > 60
--- NOTE | 2017-09-11 07:42 | CP.PCM.DIS ---
Addendum entered and electronically signed by Sandoval García 09/11/17 10:44: Patient left AMA and is not taking any medications at home. Patient was instructed to follow up with his primary care physician or [facility] to manage his hypertension. Original Note: <Sandoval García - Last Filed: 09/11/17 09:10> Provider - Provider Date of Admission: 09/09/17 10:35 Attending physician: Martin Lee MD Primary care physician: NO PRIMARY CARE PROVIDER Time Spent in preparation of Discharge (in minutes): 45 Diagnosis - Discharge Diagnosis (1) Alcohol withdrawal Status: Acute Priority: High (2) Flank pain Status: Chronic Priority: Medium (3) Alcohol intoxication Status: Chronic Priority: Medium (4) Abdominal pain Status: Chronic Priority: Medium (5) Elevated liver enzymes Status: Chronic Priority: Medium Hospital Course - Lab Results Lab Results: Most Recent Lab Values WBC 5.1 10^3/ul (4.5-11.0) 09/11/17 06:30 RBC 4.88 10^6/uL (3.5-6.1) 09/11/17 06:30 Hgb 16.6 g/dL (14.0-18.0) 09/11/17 06:30 Hct 46.3 % (42.0-52.0) 09/11/17 06:30 MCV 94.9 fl (80.0-105.0) 09/11/17 06:30 MCH 34.0 pg (25.0-35.0) 09/11/17 06:30 MCHC 35.9 g/dl (31.0-37.0) 09/11/17 06:30 RDW 12.3 % (11.5-14.5) 09/11/17 06:30 Plt Count 154 10^3/uL (120.0-450.0) 09/11/17 06:30 MPV 10.3 fl (7.0-11.0) 09/11/17 06:30 Gran % 56.3 % (50.0-68.0) 09/11/17 06:30 Lymph % (Auto) 28.7 % (22.0-35.0) 09/11/17 06:30 [place] % (Auto) 8.7 % (1.0-6.0) H 09/11/17 06:30 Eos % (Auto) 5.7 % (1.5-5.0) H 09/11/17 06:30 Baso % (Auto) 0.6 % (0.0-3.0) 09/11/17 06:30 Gran # 2.86 (1.4-6.5) 09/11/17 06:30 Lymph # (Auto) 1.5 (1.2-3.4) 09/11/17 06:30 [place] # (Auto) 0.4 (0.1-0.6) 09/11/17 06:30 Eos # (Auto) 0.3 (0.0-0.7) 09/11/17 06:30 Baso # (Auto) 0.03 K/mm3 (0.0-2.0) 09/11/17 06:30 Sodium 139 mmol/L (132-148) 09/11/17 06:30 Potassium 4.4 mmol/L (3.6-5.0) 09/11/17 06:30 Chloride 101 mmol/L (98-107) 09/11/17 06:30 Carbon Dioxide 30 mmol/L (21-33) 09/11/17 06:30 Anion Gap 13 (10-20) 09/11/17 06:30 BUN 6 mg/dL (7-21) L 09/11/17 06:30 Creatinine 0.7 mg/dl (0.8-1.5) L 09/11/17 06:30 Est GFR ( Amer) > 60 09/11/17 06:30 Est GFR (Non-Af Amer) > 60 09/11/17 06:30 Random Glucose 120 mg/dL (70-110) H 09/11/17 06:30 Calcium 9.6 mg/dL (8.4-10.5) 09/11/17 06:30 Phosphorus 3.8 mg/dL (2.5-4.5) 09/10/17 05:45 Magnesium 1.7 mg/dL (1.7-2.2) 09/10/17 05:45 Total Bilirubin 1.2 mg/dL (0.2-1.3) 09/11/17 06:30 AST 226 U/L (17-59) H 09/11/17 06:30 ALT 152 U/L (7-56) H 09/11/17 06:30 Alkaline Phosphatase 129 U/L (38-126) H 09/11/17 06:30 Total Protein 7.9 g/dL (5.8-8.3) 09/11/17 06:30 Albumin 4.1 g/dL (3.0-4.8) 09/11/17 06:30 Globulin 3.8 gm/dL 09/11/17 06:30 Albumin/Globulin Ratio 1.1 (1.1-1.8) 09/11/17 06:30 Lipase 270 U/L (23-300) 09/09/17 06:30 Urine Color Yellow (YELLOW) 09/09/17 06:30 Urine Appearance Clear (CLEAR) 09/09/17 06:30 Urine pH 6.0 (4.7-8.0) 09/09/17 06:30 Ur Specific [place] 1.020 (1.005-1.035) 09/09/17 06:30 Urine Protein Trace mg/dL (<30 mg/dL) H 09/09/17 06:30 Urine Glucose (UA) Negative mg/dL (NEGATIVE) 09/09/17 06:30 Urine Ketones Negative mg/dL (NEGATIVE) 09/09/17 06:30 Urine Blood Moderate (NEGATIVE) H 09/09/17 06:30 Urine Nitrate Negative (NEGATIVE) 09/09/17 06:30 Urine Bilirubin Negative (NEGATIVE) 09/09/17 06:30 Urine Urobilinogen 1.0 E.U./dL (<1 E.U./dL) H 09/09/17 06:30 Ur Leukocyte Esterase Negative [place]/uL (NEGATIVE) 09/09/17 06:30 Urine RBC 10 - 15 /hpf (0-2) 09/09/17 06:30 Urine WBC 0 - 2 /hpf (0-6) 09/09/17 06:30 Ur Epithelial Cells None /hpf (0-5) 09/09/17 06:30 Urine Bacteria Mod (NEG) 09/09/17 06:30 Urine Opiates Screen Negative (NEGATIVE) 09/09/17 09:00 Urine Methadone Screen Negative (NEGATIVE) 09/09/17 09:00 Ur Barbiturates Screen Negative (NEGATIVE) 09/09/17 09:00 Ur Phencyclidine Scrn Negative (NEGATIVE) 09/09/17 09:00 Ur Amphetamines Screen Negative (NEGATIVE) 09/09/17 09:00 U Benzodiazepines Scrn Negative (NEGATIVE) 09/09/17 09:00 U Oth Cocaine Metabols Negative (NEGATIVE) 09/09/17 09:00 U Cannabinoids Screen Negative (NEGATIVE) 09/09/17 09:00 Alcohol, Quantitative 197 mg/dL (0-10) H 09/09/17 06:30 - Hospital Course Hospital Course: Mr. Jiang is a 46 year old male with a PMHx of HTN, Hepatitis C, alcohol dependence, chronic back pain, and anxiety who presented to the ED with left flank pain and was being treated for alcohol withdrawal. Patient was given scheduled and as needed doses of Ativan. He was also placed on CIWA protocol, aspiration precautions, fall precautions, seizure precautions, and had his bed setting to be at 30 degrees. In addition to ativan, the patient was given folic acid, thiamine, multivitamins, and 1 x banana bag. During his hospital stay, the patient underwent abdominal and pelvis CT and EKG. Abdominal and pelvic CT showed no acute findings. EKG showed normal sinus rhythm at a rate of [address] changes. Patient left AMA on 09/11. Patient was AAO x 3 and answers questions appropriately. Risks and benefits were thoroughly discussed with patient and all questions and concerns were addressed. Patient denies having any auditory or visual hallucinations, suicidal ideation, or homicidal ideation. He was instructed to follow up in the clinic within one week. Patient further informed to return to the ED for worsening of symptoms. Discharge Exam - Head Exam Head Exam: ATRAUMATIC, NORMAL INSPECTION - Eye Exam Eye Exam: Normal appearance - ENT Exam ENT Exam: Mucous Membranes Moist - Respiratory Exam Respiratory Exam: Clear to PA & Lateral. absent: Rales, Rhonchi, Wheezes - Cardiovascular Exam Cardiovascular Exam: REGULAR RHYTHM, +S1, +S2. absent: Gallop, Rubs, Systolic Murmur - GI/Abdominal Exam GI & Abdominal Exam: Normal Bowel Sounds, Soft Additional comments: Left flank pain tender on palpation. - Extremities Exam Extremities exam: normal inspection - Neurological Exam Neurological exam: Alert, Oriented x3 - Psychiatric Exam Psychiatric exam: Normal Affect, Normal Mood - Skin Skin Exam: Dry, Normal Color, Warm Discharge Plan - Follow Up Plan Condition: FAIR Disposition: AGAINST MEDICAL ADVICE Referrals: PCP,NO [Primary Care Provider] - <Martin Lee - Last Filed: 09/11/17 15:49> Provider - Provider Date of Admission: 09/09/17 10:35 Attending physician: Martin Lee MD Primary care physician: NO PRIMARY CARE PROVIDER Hospital Course - Lab Results Lab Results: Most Recent Lab Values WBC 5.1 10^3/ul (4.5-11.0) 09/11/17 06:30 RBC 4.88 10^6/uL (3.5-6.1) 09/11/17 06:30 Hgb 16.6 g/dL (14.0-18.0) 09/11/17 06:30 Hct 46.3 % (42.0-52.0) 09/11/17 06:30 MCV 94.9 fl (80.0-105.0) 09/11/17 06:30 MCH 34.0 pg (25.0-35.0) 09/11/17 06:30 MCHC 35.9 g/dl (31.0-37.0) 09/11/17 06:30 RDW 12.3 % (11.5-14.5) 09/11/17 06:30 Plt Count 154 10^3/uL (120.0-450.0) 09/11/17 06:30 MPV 10.3 fl (7.0-11.0) 09/11/17 06:30 Gran % 56.3 % (50.0-68.0) 09/11/17 06:30 Lymph % (Auto) 28.7 % (22.0-35.0) 09/11/17 06:30 [place] % (Auto) 8.7 % (1.0-6.0) H 09/11/17 06:30 Eos % (Auto) 5.7 % (1.5-5.0) H 09/11/17 06:30 Baso % (Auto) 0.6 % (0.0-3.0) 09/11/17 06:30 Gran # 2.86 (1.4-6.5) 09/11/17 06:30 Lymph # (Auto) 1.5 (1.2-3.4) 07/13/18 06:30 [place] # (Auto) 0.4 (0.1-0.6) 09/11/17 06:30 Eos # (Auto) 0.3 (0.0-0.7) 09/11/17 06:30 Baso # (Auto) 0.03 K/mm3 (0.0-2.0) 09/11/17 06:30 Sodium 139 mmol/L (132-148) 09/11/17 06:30 Potassium 4.4 mmol/L (3.6-5.0) 09/11/17 06:30 Chloride 101 mmol/L (98-107) 09/11/17 06:30 Carbon Dioxide 30 mmol/L (21-33) 09/11/17 06:30 Anion Gap 13 (10-20) 09/11/17 06:30 BUN 6 mg/dL (7-21) L 09/11/17 06:30 Creatinine 0.7 mg/dl (0.8-1.5) L 09/11/17 06:30 Est GFR ( Amer) > 60 09/11/17 06:30 Est GFR (Non-Af Amer) > 60 09/11/17 06:30 Random Glucose 120 mg/dL (70-110) H 09/11/17 06:30 Calcium 9.6 mg/dL (8.4-10.5) 09/11/17 06:30 Phosphorus 3.8 mg/dL (2.5-4.5) 09/10/17 05:45 Magnesium 1.7 mg/dL (1.7-2.2) 09/10/17 05:45 Total Bilirubin 1.2 mg/dL (0.2-1.3) 09/11/17 06:30 AST 226 U/L (17-59) H 09/11/17 06:30 ALT 152 U/L (7-56) H 09/11/17 06:30 Alkaline Phosphatase 129 U/L (38-126) H 09/11/17 06:30 Total Protein 7.9 g/dL (5.8-8.3) 09/11/17 06:30 Albumin 4.1 g/dL (3.0-4.8) 09/11/17 06:30 Globulin 3.8 gm/dL 09/11/17 06:30 Albumin/Globulin Ratio 1.1 (1.1-1.8) 09/11/17 06:30 Lipase 270 U/L (23-300) 09/09/17 06:30 Urine Color Yellow (YELLOW) 09/09/17 06:30 Urine Appearance Clear (CLEAR) 09/09/17 06:30 Urine pH 6.0 (4.7-8.0) 09/09/17 06:30 Ur Specific [place] 1.020 (1.005-1.035) 09/09/17 06:30 Urine Protein Trace mg/dL (<30 mg/dL) H 09/09/17 06:30 Urine Glucose (UA) Negative mg/dL (NEGATIVE) 09/09/17 06:30 Urine Ketones Negative mg/dL (NEGATIVE) 09/09/17 06:30 Urine Blood Moderate (NEGATIVE) H 09/09/17 06:30 Urine Nitrate Negative (NEGATIVE) 09/09/17 06:30 Urine Bilirubin Negative (NEGATIVE) 09/09/17 06:30 Urine Urobilinogen 1.0 E.U./dL (<1 E.U./dL) H 09/09/17 06:30 Ur Leukocyte Esterase Negative [place]/uL (NEGATIVE) 09/09/17 06:30 Urine RBC 10 - 15 /hpf (0-2) 09/09/17 06:30 Urine WBC 0 - 2 /hpf (0-6) 09/09/17 06:30 Ur Epithelial Cells None /hpf (0-5) 09/09/17 06:30 Urine Bacteria Mod (NEG) 09/09/17 06:30 Urine Opiates Screen Negative (NEGATIVE) 09/09/17 09:00 Urine Methadone Screen Negative (NEGATIVE) 09/09/17 09:00 Ur Barbiturates Screen Negative (NEGATIVE) 09/09/17 09:00 Ur Phencyclidine Scrn Negative (NEGATIVE) 09/09/17 09:00 Ur Amphetamines Screen Negative (NEGATIVE) 09/09/17 09:00 U Benzodiazepines Scrn Negative (NEGATIVE) 09/09/17 09:00 U Oth Cocaine Metabols Negative (NEGATIVE) 09/09/17 09:00 U Cannabinoids Screen Negative (NEGATIVE) 09/09/17 09:00 Alcohol, Quantitative 197 mg/dL (0-10) H 09/09/17 06:30 Attending/Attestation - Attestation I have personally seen and examined this patient.: Yes I have fully participated in the care of the patient.: Yes I have reviewed all pertinent clinical information, including history, physical exam and plan: Yes Notes (Text): 09/11/17 15:48 Attending note; Patient is a 46 year old male with a PMHx of HTN, Hep C not treated, IVDA, alcohol dependence, chronic back pain, anxiety is admitted with abdominal pain and nausea vomiting after binge drinking of heavy amount of alcohol. alcohol withdrawal; treated with IV Ativan. Currently tolerating diet. Patient signed AMA before rounds today. Complete alcohol cessation is strongly advised. Active smoking; smoking cessation is strongly advised. Continue NicoDerm patch. Elevated LFTs; secondary to alcohol abuse. Patient also has hepatitis C chronic. improving slowly. Hepatitis C; not treated. Patient will be referred to [facility] hepatology clinic. Upon discharge patient will be referred to [facility] clinic.
== END 2017-09-11 07:39 | disposition left against medical advice (07) | DRG 749 ==
LOC: ED 06:22 → ERH 10:35 → 3RSO 11:26
PROVIDERS: ADMIT Internal Medicine; ATTEND Internal Medicine
DX: F10.239 Alcohol dependence with withdrawal, unspecified (principal); B18.2 Chronic viral hepatitis C; E87.6 Hypokalemia; F10.229 Alcohol dependence with intoxication, unspecified; Y90.6 Blood alcohol level of 120-199 mg/100 ml; E83.42 Hypomagnesemia; F17.200 Nicotine dependence, unspecified, uncomplicated; I10 Essential (primary) hypertension; M54.5 Low back pain; R74.0 Nonspecific elevation of levels of transaminase and lactic acid dehydrogenase [LDH]

== ENCOUNTER 2017-10-05 10:33 | Observation (INO) | payer MEDICAID ==
--- NOTE | 2017-10-05 10:43 | ED PDOC ---
Arrival/HPI - General Time Seen by Provider: 10/05/17 10:41 Historian: Patient - History of Present Illness Narrative History of Present Illness (Text): 10/05/17 10:43 46 y/o male, pmh including hepatitis C, psychiatric history including alcohol/ drug abuse/alcohol withdrawal, allergic to pentazocine/penicillin, c/o feeling anxious/tremoring and nausea x 1 day. Pt. stated that he has been having alcohol abuse x 5 years, drink daily, last drink 8pm last night, woke up this morning with anxious feeling/tremoring and nausea but no vomiting. Pt. stated that he has no homicidal or suicidal ideation, no auditory or visual hallucination, no night sweat, no rash, no numbness or tingling, no palpitation , no diarrhea or abdominal pain, no other medical or psychological complaints. Past Medical History - Provider Review Nursing Documentation Reviewed: Yes - Past History Past History: No Previous - Infectious Disease Hx of Infectious Diseases: None - Tetanus Immunization Tetanus Immunization: Unknown, Up to Date - Past Medical History Past Medical History: No Previous - Cardiac Hx Cardiac Disorders: Yes Hx Hypertension: Yes - Pulmonary Hx Respiratory Disorders: No - Neurological Hx Neurological Disorder: No - HEENT Hx HEENT Disorder: No - Renal Hx Renal Disorder: No - Endocrine/Metabolic Hx Endocrine Disorders: No - Hematological/Oncological Hx Blood Disorders: No - Integumentary Hx Dermatological Disorder: Yes (TATOOS) - Musculoskeletal/Rheumatological Hx Musculoskeletal Disorders: Yes Hx Back Pain: Yes Hx Falls: Yes Other/Comment: CHRONIC BACK PAIN - Gastrointestinal Hx Gastrointestinal Disorders: Yes (ETOH ABUSE-MALNUTRITION) - Genitourinary/Gynecological Hx Genitourinary Disorders: No - Psychiatric Hx Psychophysiologic Disorder: Yes Hx Depression: Yes Hx Substance Use: No (H/O USED COCAINE/HEROINE) Other/Comment: Past drug user - Past Surgical History Past Surgical History: No Previous - Anesthesia Hx Anesthesia: No Hx Anesthesia Reactions: No Hx Malignant Hyperthermia: No - Suicidal Assessment Feels Threatened In Home Enviroment: No Family/Social History - Physician Review Nursing Documentation Reviewed: Yes Family/Social History: Unknown Family HX Smoking Status: Current Some Days Smoker Hx Alcohol Use: Yes (DRINKS [employer]. STARTED WHEN HE WAS 24 YRS OLD.FAMILY DRINKS.) Hx Substance Use: No (H/O USED COCAINE/HEROINE) Substance used: COCAINE/IV DRUG USE HEROIN Hx Substance Use Treatment: No Allergies/Home Meds Allergies/Adverse Reactions: Allergies Penicillins Allergy (Verified 09/09/17 12:10) RASH pentazocine lactate [From Talwin] Allergy (Verified 09/09/17 12:10) ANAPHYLAXIS Home Medications: Home Meds Medication Instructions Recorded Confirmed Alprazolam [Xanax] 2 mg PO QID 08/05/17 10/05/17 Review of Systems - Review of Systems Constitutional: absent: Fatigue, Fevers Eyes: absent: Vision Changes ENT: absent: Hearing Changes Respiratory: absent: SOB, Cough Cardiovascular: absent: Chest Pain Gastrointestinal: Nausea. absent: Abdominal Pain, Diarrhea, Vomiting Skin: absent: Rash, Pruritis Neurological: Other (+tremors). absent: Headache, Dizziness, Focal Weakness, Gait Changes, Speech Changes, Facial Droop Psychiatric: Anxiety. absent: Depression, Suicidal Ideation Physical Exam Vital Signs Reviewed: Yes Vital Signs Temp Pulse Resp BP Pulse Ox 10/05/17 13:31 97 F L 99 H 17 135/108 H 98 10/05/17 10:44 98.9 F 107 H 18 164/106 H 99 Temperature: Afebrile Blood Pressure: Hypertensive Pulse: Tachycardic Respiratory Rate: Normal Appearance: Positive for: Well-Appearing, Non-Toxic, Comfortable Pain Distress: None Mental Status: Positive for: Alert and Oriented X 3 - Systems Exam Head: Present: Atraumatic, Normocephalic Pupils: Present: PERRL Extroacular Muscles: Present: EOMI Conjunctiva: Present: Normal Mouth: Present: Moist Mucous Membranes Neck: Present: Normal Range of Motion Respiratory/Chest: Present: Clear to Auscultation, Good Air Exchange. No: Respiratory Distress, Accessory Muscle Use Cardiovascular: Present: Regular Rate and Rhythm, Normal S1, S2. No: Murmurs Abdomen: Present: Tenderness (mild epigastric. negative payne and mcburney point tenderness). No: Distention, Peritoneal Signs, Rebound, Guarding Back: Present: Normal Inspection. No: CVA Tenderness, Midline Tenderness, Paraspinal Tenderness Upper Extremity: Present: Normal Inspection, Normal ROM, NORMAL PULSES, Neurovascularly Intact, Capillary Refill < 2s. No: Cyanosis, Edema, Deformity Lower Extremity: Present: Normal Inspection, Normal ROM, Capillary Refill < 2 s. No: Edema, Deformity Neurological: Present: GCS=15, CN II-XII Intact, Motor Func Grossly Intact, Memory Normal, Other (+tongue fasciculations and bilateral fine hand tremors) Skin: Present: Warm, Dry, Normal Color. No: Rashes Psychiatric: Present: Alert, Oriented x 3, Normal Insight, Normal Concentration , Anxious Medical Decision Making ED Course and Treatment: 10/05/17 10:52 Differential: Alcohol withdrawal vs. rhabdomylosis vs. electrolyte imbalance vs. 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 -Labs show no acute findings compared with previous labs: AST 233 from 226, ALT 152 from 142 -Alcohol 44 -Lipase within normal limit -UA show +yeast and +wbc/leukocyte esterase, diflucan and macrobid -UDS show -Pt. will need admission for alcohol withdrawal as he has high chance of withdrawal seizure. -Paging the hospitalist for admission. 10/05/17 12:51 -I spoke to the admitting hospitalist, Dr. Lee, discussed about the case/ labs/radiology result, agreed to admit [facility] and she would continue the care. -Dr. Galvan will put in the admission order. 10/05/17 13:50 -EKG: SR @ 82 BPM, no ST elevation or depression, no T wave inversion. - Lab Interpretations Lab Results: 10/05/17 11:30 10/05/17 11:30 Lab Results 10/05/17 11:30: Alcohol, Quantitative 44 H 10/05/17 11:30: Salicylates < 1 L, Acetaminophen < 10.0 L 10/05/17 11:30: Urine Opiates Screen Negative, Urine Methadone Screen Negative, Ur Barbiturates Screen Negative, Ur Phencyclidine Scrn Negative, Ur Amphetamines Screen Negative, U Benzodiazepines Scrn Negative, U Oth Cocaine Metabols Negative, U Cannabinoids Screen Negative 10/05/17 11:30: Sodium 138, Potassium 3.7, Chloride 103, Carbon Dioxide 23, Anion Gap 16, BUN 7, Creatinine 0.6 L, Est GFR ( Amer) > 60, Est GFR (Non -Af Amer) > 60, Random Glucose 93, Calcium 9.4, Magnesium 1.8, Total Bilirubin 1.5 H, AST 233 H, ALT 142 H, Alkaline Phosphatase 141 H, Total Creatine Kinase 136, Total Protein 8.1, Albumin 4.4, Globulin 3.7, Albumin/Globulin Ratio 1.2, Lipase 85 10/05/17 11:30: Urine Color Yellow, Urine Appearance Clear, Urine pH 6.0, Ur Specific Avery >= 1.030, Urine Protein 30 H, Urine Glucose (UA) 100 H, Urine Ketones >=80, Urine Blood Moderate H, Urine Nitrate Negative, Urine Bilirubin Moderate H, Urine Urobilinogen 1.0 H, Ur Leukocyte Esterase Trace H, Urine RBC 20 - 25, Urine WBC 5 - 10, Ur Epithelial Cells 0 - 2, Urine Bacteria Many, Urine Other Uyeast 10/05/17 11:30: WBC 6.5 D, RBC 4.69, Hgb 15.8, Hct 44.6, MCV 95.1, MCH 33.7, MCHC 35.4, RDW 12.9, Plt Count 120, MPV 10.2, Gran % 80.5 H, Lymph % (Auto) 7.6 L, [place] % (Auto) 10.8 H, Eos % (Auto) 0.5 L, Baso % (Auto) 0.6, Gran # 5.23, Lymph # (Auto) 0.5 L, [place] # (Auto) 0.7 H, Eos # (Auto) 0.0, Baso # (Auto) 0.04 I have reviewed the lab results: Yes - RAD Interpretation Radiology Orders: 10/05/17 10:48 CHEST PORTABLE [RAD] Stat HISTORY: medical clearance COMPARISON: 08/05/2017 FINDINGS: LUNGS: No active pulmonary disease. PLEURA: No significant pleural effusion identified, no pneumothorax apparent. CARDIOVASCULAR: Normal. OSSEOUS STRUCTURES: No significant abnormalities. VISUALIZED UPPER ABDOMEN: Normal. OTHER FINDINGS: None. IMPRESSION: No active disease. Environmental Protection Inspector: Radiologist - EKG Interpretation EKG Interpretation (Text): 10/05/17 13:49 -EKG: SR @ 82 BPM, no ST elevation or depression, no T wave inversion. Interpreted by ED Physician: Yes - Medication Orders Current Medication Orders: Discontinued Medications Famotidine (Pepcid) 20 mg IVP STAT STA Stop: 10/05/17 10:49 Last Admin: 10/05/17 11:43 Dose: 20 mg IVP Administration Document 10/05/17 11:43 [email or web address] (Rec: 10/05/17 11:43 [email or web address] [id number]) Charges for Administration # of IVP Administrations 1 Fluconazole (Diflucan) 200 mg PO STAT STA PRN Reason: Protocol Stop: 10/05/17 12:06 Last Admin: 10/05/17 12:26 Dose: 200 mg Multivitamins/Vitamin C 10 ml/Thiamine HCl 100 mg/ Folic Acid 1 mg/ Dextrose 1, 011.2 mls @ 1,000 mls/hr IV .Q1H1M ONE Stop: 10/05/17 11:48 Last Admin: 10/05/17 12:28 Dose: 1,000 mls/hr eMAR Start Stop Document 10/05/17 12:28 [email or web address] (Rec: 10/05/17 12:28 [email or web address] [id number]) Intravenous Solution Start Date 10/05/17 Start Time 12:28 End Date 10/05/17 Lorazepam (Ativan) 2 mg IVP ONCE ONE PRN Reason: Protocol Stop: 10/05/17 10:49 Last Admin: 10/05/17 11:43 Dose: 2 mg IVP Administration Document 10/05/17 11:43 [email or web address] (Rec: 10/05/17 11:43 [email or web address] [id number]) Charges for Administration # of IVP Administrations 1 Nitrofurantoin Macrocrystals (Macrobid) 100 mg PO STAT STA PRN Reason: Protocol Stop: 10/05/17 12:06 Last Admin: 10/05/17 12:27 Dose: 100 mg Ondansetron HCl (Zofran Inj) 4 mg IVP STAT STA Stop: 10/05/17 10:49 Last Admin: 10/05/17 11:43 Dose: 4 mg IVP Administration Document 10/05/17 11:43 [email or web address] (Rec: 10/05/17 11:43 [email or web address] [id number]) Charges for Administration # of IVP Administrations 1 - PA / PAINT PREPARER / Resident Statement / has reviewed & agrees with the documentation as recorded. Disposition/Present on Arrival - Present on Arrival Any Indicators Present on Arrival: No History of DVT/PE: No History of Uncontrolled Diabetes: No Urinary Catheter: No History of Decub. Ulcer: No History Surgical Site Infection Following: None - Disposition Have Diagnosis and Disposition been Completed?: Yes Diagnosis: Alcohol withdrawal, UTI (urinary tract infection), Hepatitis Disposition: HOSPITALIZED Disposition Time: 12:30 Patient Plan: Admission, Observation, Telemetry Patient Problems: Current Active Problems Problem Status Onset Alcohol withdrawal Acute UTI (urinary tract infection) Acute Hepatitis Acute Condition: STABLE
[2017-10-05 10:44] VITALS: BMI 24.3
[2017-10-05] MEDS ORDERED: Multivitamin (MVI) 10 ML, Thiamine 100 MG, Folic Acid 1 MG in Dextrose 5% In Water 1,00... IV ONE (10:48)
--- NOTE | 2017-10-05 11:21 | RAD ---
Date of service: 10/05/2017 HISTORY: medical clearance COMPARISON: 08/05/2017 FINDINGS: LUNGS: No active pulmonary disease. PLEURA: No significant pleural effusion identified, no pneumothorax apparent. CARDIOVASCULAR: Normal. OSSEOUS STRUCTURES: No significant abnormalities. VISUALIZED UPPER ABDOMEN: Normal. OTHER FINDINGS: None. IMPRESSION: No active disease.
[2017-10-05 11:46] LABS: URINE BILIRUBIN MODERATE (NEGATIVE); URINE BLOOD MODERATE (NEGATIVE); URINE COLOR YELLOW (YELLOW); URINE GLUCOSE (UA) 100 mg/dL (NEGATIVE); URINE LEUKOCYTE ESTERASE TRACE Leu/uL (NEGATIVE); URINE PROTEIN 30 mg/dL (<30 mg/dL)
[2017-10-05 11:47] LABS: BASO # 0.04 K/mm3 (0.0-2.0); BASO % 0.6 % (0.0-3.0); EOS % 0.5 % (1.5-5.0); GRAN # 5.23 (1.4-6.5); GRAN % 80.5 % (50.0-68.0); HEMOGLOBIN 15.8 g/dL (14.0-18.0); LYMPH # 0.5 (1.2-3.4); LYMPH % 7.6 % (22.0-35.0); MEAN CELL VOLUME 95.1 fl (80.0-105.0); MEAN CORPUSCULAR HEMOGLOBIN 33.7 pg (25.0-35.0); MEAN CORPUSCULAR HGB CONC 35.4 g/dl (31.0-37.0); MEAN PLATELET VOLUME 10.2 fl (7.0-11.0); MONO # 0.7 (0.1-0.6); MONO % 10.8 % (1.0-6.0); RBC 4.69 10^6/uL (3.5-6.1); RED CELL DISTRIBUTION WIDTH 12.9 % (11.5-14.5); URINE APPEARANCE CLEAR (CLEAR); WHITE BLOOD COUNT 6.5 10^3/ul (4.5-11.0)
[2017-10-05 11:50] LABS: URINE BACTERIA MANY (NEG); URINE EPITHELIAL CELLS 0 - 2 /hpf (0-5); URINE RBC 20 - 25 /hpf (0-2)
[2017-10-05 12:00] LABS: ALB/GLOB RATIO 1.2 (1.1-1.8); ALBUMIN 4.4 g/dL (3.0-4.8); ALT/SGPT 142 U/L (7-56); AST/SGOT 233 U/L (17-59); BLOOD UREA NITROGEN 7 mg/dL (7-21); CALCIUM 9.4 mg/dL (8.4-10.5); GFR AFRICAN-AMERICAN > 60; GFR NON-AFRICAN AMERICAN > 60; LIPASE 85 U/L (23-300)
[2017-10-05 12:01] LABS: ACETAMINOPHEN < 10.0 ug/ml (10.0-20.0); SALICYLATE < 1 mg/dL (2.0-20.0)
[2017-10-05 12:04] LABS: BENZODIAZEPINES, UR NEGATIVE (NEGATIVE)
[2017-10-05 12:16] LABS: BARBITURATES, UR NEGATIVE (NEGATIVE); OPIATES, UR NEGATIVE (NEGATIVE); PHENCYCLIDINE, UR NEGATIVE (NEGATIVE)
[2017-10-05 13:40] LABS: INR 0.91; PROTHROMBIN TIME 10.3 SECONDS (9.4-12.5)
[2017-10-05 13:43] LABS: PARTIAL THROMBOPLASTIN TIME 32.6 Seconds (25.1-36.5)
[2017-10-05] MEDS ORDERED: Magnesium 2 gm/50 ml NS 2 GM/50 ML BAG IVPB ONE (14:28)
[2017-10-05] MEDS ORDERED: Potassium Chloride 40 mEq/30 ml LIQ UD PO STA (14:28)
[2017-10-05] MEDS ORDERED: Morphine 2 mg/2 mL syringe IVP PRN (14:41)
[2017-10-05] MEDS ORDERED: Morphine 2 mg/ml ISec ONE (14:46)
--- NOTE | 2017-10-05 15:00 | CP.PCM.HP ---
<Filemon Mccarthy - Last Filed: 10/05/17 14:57> History of Present Illness - History of Present Illness History of Present Illness: Hospitalist Service H&P Filemon Mccarthy, PGY-3 CC: Tremors and abdominal pain HPI: This is a 46 yo M with PMH of hypertension, seizures, hepatitis C , chronic back pain, and alcohol abuse who presents to the ED with complaint of tremors and abdominal pain. Of note, patient is poor historian due to frequently changing story among medical providers. He reports drinking 1-2 beers last night at 8 pm and at 2 am this morning, he started to have tremors and abdominal pain. He characterizes the pain as stabbing that radiates to the back. He had nausea and described his vomit as being yellow in color. He complains of diarrhea for the past 10 days and burning with urination intermittently. He denies fevers, lightheadedness, dizziness, weakness and denies passing out during the episode. Denies hematuria, melena, chest pain, shortness of breath, hematemesis, new seizures (last was 2 months ago). Reports on 1 medication for blood pressure, not on any other medications, but unable to remember what it was; reports compliance but questionable given poor historian. Only medication reported by ED is Xanax. All other ROS in 12 system review negative. PMH: as above PSH: Denies Fam Hx: Mom with HTN, denies other hx Soc Hx: 1 pint of alcohol per day for past 5 years (last reported drink 8pm yesterday), smokes 1/2 to 1 ppd cigarettes daily for > 30 yrs, denies using any illicits/IVDA PMD: doesn't follow any doctors Present on Admission - Present on Admission Any Indicators Present on Admission: No History of DVT/PE: No History of Uncontrolled Diabetes: No Urinary Catheter: No Review of Systems - Review of Systems All systems: reviewed and no additional remarkable complaints except (as per HPI ) Past Patient History - Infectious Disease Hx of Infectious Diseases: None - Tetanus Immunizations Tetanus Immunization: Unknown, Up to Date - Past Social History Smoking Status: Current Some Days Smoker - CARDIAC Hx Cardiac Disorders: Yes Hx Hypertension: Yes - PULMONARY Hx Respiratory Disorders: No - NEUROLOGICAL Hx Neurological Disorder: No - HEENT Hx HEENT Problems: No - RENAL Hx Chronic Kidney Disease: No - ENDOCRINE/METABOLIC Hx Endocrine Disorders: No - HEMATOLOGICAL/ONCOLOGICAL Hx Blood Disorders: No - INTEGUMENTARY Hx Dermatological Problems: Yes (TATOOS) - MUSCULOSKELETAL/RHEUMATOLOGICAL Hx Musculoskeletal Disorders: Yes Hx Back Pain: Yes Hx Falls: Yes Other/Comment: CHRONIC BACK PAIN - GASTROINTESTINAL Hx Gastrointestinal Disorders: Yes (ETOH ABUSE-MALNUTRITION) - GENITOURINARY/GYNECOLOGICAL Hx Genitourinary Disorders: No - PSYCHIATRIC Hx Psychophysiologic Disorder: Yes Hx Depression: Yes Hx Substance Use: No (H/O USED COCAINE/HEROINE) Other/Comment: Past drug user - SURGICAL HISTORY Hx Surgeries: No - ANESTHESIA Hx Anesthesia: No Hx Anesthesia Reactions: No Hx Malignant Hyperthermia: No Meds Allergies/Adverse Reactions: Allergies Allergy/AdvReac Type Severity Reaction Status Date / Time Penicillins Allergy RASH Verified 10/05/17 14:02 pentazocine lactate Allergy ANAPHYLAXIS Verified 10/05/17 14:02 [From Michelle] Physical Exam - Constitutional Appears: Non-toxic, No Acute Distress, Unkempt Additional comments: diffusely tremulous throughout exam - Head Exam Head Exam: ATRAUMATIC, NORMAL INSPECTION, NORMOCEPHALIC - Eye Exam Eye Exam: EOMI, PERRL. absent: Conjunctival injection, Normal appearance (left eye amblyopia, longstanding as per pt), Nystagmus, Scleral icterus (dirty sclera but not icteric) Pupil Exam: NORMAL ACCOMODATION, PERRL. absent: Fixed, Irregular, Unequal - ENT Exam ENT Exam: Mucous Membranes Moist. absent: Mucous Membranes Dry - Neck Exam Neck exam: Positive for: Full Rom, Normal Inspection - Respiratory Exam Respiratory Exam: Clear to Auscultation Bilateral, NORMAL BREATHING PATTERN. absent: Accessory Muscle Use, Chest Wall Tenderness, Decreased Breath Sounds, Prolonged Expiratory Phase, Rales, Rhonchi, Wheezes - Cardiovascular Exam Cardiovascular Exam: Tachycardia, REGULAR RHYTHM, +S1, +S2. absent: Bradycardia , Irregular Rhythm, JVD, +S4 - GI/Abdominal Exam GI & Abdominal Exam: Normal Bowel Sounds, Soft, Tenderness (moderate diffuse tenderness, most prominent tenderness to palpation epigastrically and at LUQ). absent: Diminished Bowel Sounds, Distended, Firm, Hyperactive Bowel Sounds, Hypoactive Bowel Sounds, Rigid - Rectal Exam Rectal Exam: Deferred - Extremities Exam Extremities exam: Positive for: normal capillary refill, normal inspection, pedal pulses present (+2 radials, +2 dorsalis pedis bilaterally). Negative for : calf tenderness, joint swelling, pedal edema, tenderness - Back Exam Back exam: absent: CVA tenderness (L), CVA tenderness (R) Additional comments: lower lumbar pain radiating to left hip and leg, worse with palpation - Neurological Exam Additional comments: awake and alert, oriented x4 (self, location, year, president) following all commands appropriately moving all extremities spontaneously grossly mildly tremulous, not exacerbated with focused movements - Psychiatric Exam Psychiatric exam: Anxious, Normal Affect - Skin Skin Exam: Dry, Intact, Normal Color, Warm Results - Vital Signs Recent Vital Signs: Last Vital Signs Temp 97.9 F 10/05/17 14:49 Pulse 93 H 10/05/17 14:49 Resp 18 10/05/17 14:49 BP 139/99 H 10/05/17 14:33 Pulse Ox 98 10/05/17 14:49 - Labs Result Diagrams: 10/05/17 11:30 10/05/17 11:30 Labs: Laboratory Results - last 24 hr 10/05/17 13:00 PT 10.3 INR 0.91 APTT 32.6 Assessment & Plan - Assessment and Plan (Free Text) Assessment: This is a 46 yo M with PMH of hypertension, seizures, hepatitis C, chronic back pain, and alcohol abuse who presents to the ED with complaint of tremors and abdominal pain. He was admitted for active alcohol withdrawal and abdominal pain with nausea/emesis/diarrhea. Plan: 1) Alcohol withdrawal -alcohol lvl 44 on admission, prior admissions notable for lvl in 100's-200's; reports last drink 8pm yesterday and awoke this AM with tremors, so likely acutely withdrawing -Ativan 2q4 ab IV and q1q prn IV for withdrawal, prevent DTs -avoid librium at this time due to elevated LFTs -received 1x banana bag in ED, another ordered for floors, will switch to NS and oral multivitamin/folic acid/thiamine tmr -LFTs elevated, but as per chart review, essentially unchanged from levels at last discharge 1 month prior; trend daily -K 3.7 and Mag 1.8, but expected to drop further due to alcohol use; repleting both now, will recheck tomorrow AM and replete further as needed 2) Abdominal pain + N/V/D -ddx: pancreatitis vs enteritis vs 2/2 multiple emesis and diarrheal episodes -lipase wnls, so unlikely pancreatitis -non-biliary/non-bloody emesis, less likely joanna-clarisa tear -Zofran prn for nausea/emesis -clear liquid diet, advance as tolerated 3) Hx seizures -unclear etiology, but given hx of alcohol abuse, suspect 2/2 alcohol use -ativan already ordered for withdrawal also covers for seizures 4) Chronic back pain -morphine 1q4 IV prn -avoid too-aggressive pain medications as already on benzos for withdrawal 5) HTN -questionable compliance with unspecified home antihypertensive med -mildly elevated BP currently, likely secondary to withdrawal +/- pain -continue to monitor, no need to treat at this time, will likely improve with pain control and withdrawal control Dispo: Remote telemetry, pending acute alcohol withdrawal, pending recheck of lfts and electrolytes in AM FEN: Clear liquid diet, banana bag, Mag and K repletions Access: Peripheral IV Consults: N/A Ppx: SCDs for DVT, Protonix for GI Seen, reviewed, and discussed with attending, Dr. Okeefe Decision To Admit - Pt Status Changed To: Hospital Disposition Of: Inpatient Admission - Admit Certification Admit to Inpatient:: After my assessment, the patient will require hospitalization for at least two midnights. This is because of the severity of symptoms shown, intensity of services needed, and/or the medical risk in this patient being treated as an outpatient. - . Bed Request Type: Remote Telemetry <Arnav Okeefe - Last Filed: 10/05/17 16:45> Results - Vital Signs Recent Vital Signs: Last Vital Signs Temp 97.9 F 10/05/17 14:49 Pulse 93 H 10/05/17 14:49 Resp 18 10/05/17 14:49 BP 139/99 H 10/05/17 14:33 Pulse Ox 98 10/05/17 14:49 - Labs Result Diagrams: 10/05/17 11:30 10/05/17 11:30 Labs: Laboratory Results - last 24 hr 10/05/17 13:00 PT 10.3 INR 0.91 APTT 32.6 Attending/Attestation - Attestation I have personally seen and examined this patient.: Yes I have fully participated in the care of the patient.: Yes I have reviewed all pertinent clinical information: Yes Notes (Text): 10/05/17 16:40 Medical record note made by the resident after discussion with my direction and input after the patient was personally seen and examined by me. I have reviewed the chart and agree that the record accurately reflects by personal performance of the history, physical exam, data review, and medical decision-making, in the course for the patient. I have also personally directed the plan of care. 46 year old male with a PMHx of HTN, Hep C not treated, IVDA, alcohol dependence , chronic back pain, anxiety and non compliance is admitted with abdominal pain and nausea vomiting after binge drinking of heavy amount of alcohol.We will monitor patient for alcohol withdrawal with [facility] protocol. Nausea and vomiting is already improving.Abdominal examination is benign.LFT are at base line.We will start patient on clear liquid diet and advance as tolerated. Complete alcohol cessation is strongly advised. Active smoking; smoking cessation is strongly advised. Management plan was discussed in detail with patient. Education was provided.
[2017-10-05] MEDS ORDERED: Folic Acid 1 MG, Thiamine 100 MG, Multivitamin (MVI) 10 ML, Potassium Chloride 20 MEQ i... IV ONE (16:00)
[2017-10-05] MEDS: Pantoprazole 40 mg EC Tab PO SCH (16:08)
[2017-10-05 17:10] LABS: BARBITURATES, UR NEGATIVE (NEGATIVE); BENZODIAZEPINES, UR NEGATIVE (NEGATIVE); OPIATES, UR POSITIVE (NEGATIVE); PHENCYCLIDINE, UR NEGATIVE (NEGATIVE)
[2017-10-05] MEDS ORDERED: Pneumococcal 23-Valent Vaccine IM ONE (17:51)
[2017-10-05] MEDS ORDERED: Morphine 2 mg/ml ISec IVP PRN (19:37)
[2017-10-05 20:09] VITALS: RESP 20
[2017-10-05 21:33] LABS: HEPATITIS B SURFACE AG Negative (NEGATIVE)
[2017-10-05 21:39] LABS: HEPATITIS A IGM NEGATIVE (NEGATIVE); HEPATITIS B CORE AB NEGATIVE (NEGATIVE)
--- NOTE | 2017-10-05 22:33 | CARD ---
APPROVED REPORT Date of service: 10/05/2017 EKG Measurement Heart [id number] <Conclusion> Sinus rhythm with premature ventricular complexes or fusion complexes Otherwise normal ECG
[2017-10-05 23:04] LABS: HEPATITIS C ANTIBODY REACTIVE (NEGATIVE)
[2017-10-06] MEDS: Pantoprazole 40 mg EC Tab PO SCH (05:50)
[2017-10-06 07:02] LABS: BASO # 0.05 K/mm3 (0.0-2.0); BASO % 0.9 % (0.0-3.0); EOS # 0.2 (0.0-0.7); EOS % 3.9 % (1.5-5.0); GRAN # 3.83 (1.4-6.5); HEMOGLOBIN 15.7 g/dL (14.0-18.0); LYMPH # 1.1 (1.2-3.4); LYMPH % 19.1 % (22.0-35.0); MEAN CELL VOLUME 94.1 fl (80.0-105.0); MEAN CORPUSCULAR HEMOGLOBIN 33.3 pg (25.0-35.0); MEAN CORPUSCULAR HGB CONC 35.4 g/dl (31.0-37.0); MONO # 0.5 (0.1-0.6); MONO % 9.1 % (1.0-6.0); RBC 4.71 10^6/uL (3.5-6.1); RED CELL DISTRIBUTION WIDTH 12.9 % (11.5-14.5); WHITE BLOOD COUNT 5.7 10^3/ul (4.5-11.0)
[2017-10-06] MEDS ORDERED: Multivitamin Therapeutic Tab PO SCH (08:00)
[2017-10-06 08:10] LABS: BLOOD UREA NITROGEN 5 mg/dL (7-21); GFR AFRICAN-AMERICAN > 60; GFR NON-AFRICAN AMERICAN > 60
[2017-10-06 08:11] LABS: ALBUMIN 3.8 g/dL (3.0-4.8); CALCIUM 8.9 mg/dL (8.4-10.5)
[2017-10-06 08:12] LABS: ALB/GLOB RATIO 1.1 (1.1-1.8); ALT/SGPT 153 U/L (7-56); AST/SGOT 252 U/L (17-59)
--- NOTE | 2017-10-06 17:06 | CP.PCM.PN ---
<Noe Mancuso - Last Filed: 10/06/17 16:45> Subjective - Date & Time of Evaluation Date of Evaluation: 10/06/17 Time of Evaluation: 16:45 - Subjective Subjective: Noe Mancuso DO PGY1 Internal Medicine Content Development Manager - Hospital Progress Note Pt. reported some chills, abd pain, and diarrhea overnight. Diarrhea was reported as per patient and not by nursing; He reported 2-3 episodes overnight. No other complaints this AM. Objective - Vital Signs/Intake and Output Vital Signs (last 24 hours): Temp Pulse Resp BP Pulse Ox 97.3 F L 74 20 140/106 H 96 10/06/17 08:50 10/06/17 10:00 10/06/17 08:50 10/06/17 08:50 10/06/17 08:50 Intake and Output: 10/06/17 10/06/17 06:59 18:59 Intake Total 1920 Output Total 2500 Balance -580 - Medications Medications: Current Medications Folic Acid (Folic Acid) 1 mg PO DAILY [facility] Last Admin: 10/06/17 09:32 Dose: 1 mg Potassium Chloride 20 meq/ (Sodium Chloride) 1,010 mls @ 100 mls/hr IV .Q10H6M [facility] Last Admin: 10/06/17 13:34 Dose: 100 mls/hr Lorazepam (Ativan) 1 mg IVP Q1H PRN; Protocol PRN Reason: Anxiety Last Admin: 10/06/17 15:57 Dose: 1 mg Lorazepam (Ativan) 2 mg IVP Q4H AB PRN Reason: Protocol Last Admin: 10/06/17 13:34 Dose: 2 mg Multivitamins (Thera Tab) 1 tab PO 0800 [facility] Last Admin: 10/06/17 09:32 Dose: 1 tab Nicotine (Nicoderm Cq) 1 patch TD DAILY [facility] Last Admin: 10/06/17 09:32 Dose: 1 patch Ondansetron HCl (Zofran Inj) 4 mg IVP Q8H PRN PRN Reason: Nausea/Vomiting Pantoprazole Sodium (Protonix Ec Tab) 40 mg PO 0600 [facility] Last Admin: 10/06/17 05:50 Dose: 40 mg Thiamine HCl (Vitamin B1 Tab) 100 mg PO DAILY [facility] Last Admin: 10/06/17 09:32 Dose: 100 mg Tramadol HCl (Ultram) 25 mg PO Q6H PRN PRN Reason: Pain, moderate (4-7) Last Admin: 10/06/17 12:19 Dose: 25 mg - Labs Labs: 10/06/17 06:20 10/06/17 06:20 PT 10.3 SECONDS (9.4-12.5) 10/05/17 13:00 INR 0.91 10/05/17 13:00 APTT 32.6 Seconds (25.1-36.5) 10/05/17 13:00 - Constitutional Appears: Well, Unkempt, Agitated, Other (Appears agitated/ tremulous throuhought exam/interview) - Eye Exam Eye Exam: EOMI, PERRL, Scleral icterus (not overt icterus; however sclera are dirty w/ some tint) - ENT Exam ENT Exam: Mucous Membranes Moist - Respiratory Exam Respiratory Exam: Clear to Ausculation Bilateral, NORMAL BREATHING PATTERN. absent: Rales, Rhonchi, Wheezes - Cardiovascular Exam Cardiovascular Exam: RRR, +S1, +S2 - GI/Abdominal Exam GI & Abdominal Exam: Soft, Tenderness (LUQ), Normal Bowel Sounds - Extremities Exam Extremities Exam: absent: Pedal Edema - Back Exam Back Exam: absent: CVA tenderness (L), CVA tenderness (R), vertebral tenderness Additional comments: Some BL flank pain; no CVA tenderness - Neurological Exam Neurological Exam: Alert, Awake - Psychiatric Exam Psychiatric exam: Agitated, Anxious - Skin Skin Exam: Diaphoretic, Warm Assessment and Plan - Assessment and Plan (Free Text) Assessment: This is a 46 yo M with PMH of hypertension, seizures, hepatitis C, chronic back pain, and alcohol abuse who presents to the ED with complaint of tremors and abdominal pain. He was admitted for active alcohol withdrawal and abdominal pain with nausea/emesis/diarrhea. Plan: Alcohol withdrawal -EtOH + on adm -c/w ativan 2q4 ab + 2q1 prn -c/w thiamine, folic acid, multivit -DC NS -Pt. CIWA max score in 24H = 8 Abdominal pain + N/V/D -ddx: pancreatitis vs enteritis vs 2/2 multiple emesis and diarrheal episodes -Lipase wnl; suspect least likely to be pancreatitis -Zofran prn for nausea/emesis -clear liquid diet tolerated well; advanced to regular today Transaminitis -Etiologies: EtOH vs Alcoholic Hepatitis / Cirrhosis -LFTs unchanged from admission; continue monitoring; AST/ALT : 252/153 -PLT count borderline low -Albumin wnl -Previous Hx of HepC; patient offered treatment information Hx seizures -unclear etiology, but given hx of alcohol abuse, suspect 2/2 alcohol use -ativan already ordered for withdrawal also covers for seizures -seizure precautions Chronic back pain -DC morphine 1q4 IV prn -Start ultram 25mg PO Q6H PRN -avoid too-aggressive pain medications as already on benzos for withdrawal HTN -questionable compliance with unspecified home antihypertensive med -monitor and treat as necessary Dispo: Continue monitoring for s/s of EtOH withdrawal while pt. is Obs. Consults: N/A Ppx: SCDs for DVT, Protonix for GI Patient seen, examined, and case discussed w/ attending physician Dr. Maldonado Mancuso DO PGY1 Internal Medicine Content Development Manager - Pager [phone] <Arnav Okeefe - Last Filed: 10/07/17 08:12> Objective - Vital Signs/Intake and Output Vital Signs (last 24 hours): Temp Pulse Resp BP Pulse Ox 97.6 F 82 20 104/68 95 10/06/17 17:29 10/06/17 17:29 10/06/17 17:29 10/06/17 17:29 10/06/17 17:29 - Labs Labs: 10/06/17 06:20 10/06/17 06:20 PT 10.3 SECONDS (9.4-12.5) 10/05/17 13:00 INR 0.91 10/05/17 13:00 APTT 32.6 Seconds (25.1-36.5) 10/05/17 13:00 Attending/Attestation - Attestation I have personally seen and examined this patient.: Yes I have fully participated in the care of the patient.: Yes I have reviewed all pertinent clinical information, including history, physical exam and plan: Yes Notes (Text): 10/07/17 08:11 Medical record note made by the resident after discussion with my direction and input after the patient was personally seen and examined by me. I have reviewed the chart and agree that the record accurately reflects by personal performance of the history, physical exam, data review, and medical decision-making, in the course for the patient. I have also personally directed the plan of care. 46 year old male with a PMHx of HTN, Hep C not treated, IVDA, alcohol dependence , chronic back pain, anxiety and non compliance was admitted with abdominal pain and nausea vomiting after binge drinking of heavy amount of alcohol.Patient alcohol withdrawals are improving. Nausea and vomiting is improved..Abdominal examination is benign.LFT are at base line.We will advance diet. Active smoking; smoking cessation is strongly advised. Management plan was discussed in detail with patient. Education was provided.
[2017-10-06 17:29] VITALS: BP 104/68; PULSE 82; TEMP 97.6; O2SAT 95
--- NOTE | 2017-10-07 22:01 | CP.PCM.DIS ---
<Noe Mancuso - Last Filed: 10/07/17 21:38> Provider - Provider Date of Admission: 10/05/17 12:25 Attending physician: Martin Lee MD Primary care physician: 46 yo M with PMH of hypertension, seizures, hepatitis C, chronic back pain, and alcohol abuse who presented to [facility] ED on 10/05 with complaint of tremors and abdominal pain. Of note, patient is poor historian due to frequently changing story among medical providers. He reports drinking 1-2 beers last night at 8 pm and at 2 am this morning, he started to have tremors and abdominal pain. He characterizes the pain as stabbing that radiates to the back. He had nausea and described his vomit as being yellow in color. He complains of diarrhea for the past 10 days and burning with urination intermittently. He was subsequently admitted for management of alcohol withdrawal, and abdominal pain w/ poor PO intake and N/V/D. Pt. was kept NPO and started on IVF as well as zofran for N/V; it was noted that his LFTs were elevated however patient is a known for a significant history of EtOH abuse as well as a PMH of untreated hep C. Lipase and amylase were within normal limits. For EtOH withdrawals patient was started on CIWA protocol, as well as IVF ( banana bag) and thiamine, folic acid, and multivitamin. Through hospital course, Diet advanced; hes tolerating well on full as well as CLD; His maximum CIWA score for this course was 8. Day after admission, patient signed out AMA. Time Spent in preparation of Discharge (in minutes): 40 Diagnosis - Discharge Diagnosis (1) Gastroenteritis Status: Acute Priority: High (2) HTN (hypertension) Status: Chronic Priority: Medium (3) Back pain Status: Chronic Priority: Medium (4) Hepatitis Status: Acute Priority: High (5) Abdominal pain Status: Acute Priority: High (6) Elevated liver enzymes Status: Acute Priority: High Hospital Course - Lab Results Lab Results: Most Recent Lab Values WBC 5.7 10^3/ul (4.5-11.0) 10/06/17 06:20 RBC 4.71 10^6/uL (3.5-6.1) 10/06/17 06:20 Hgb 15.7 g/dL (14.0-18.0) 10/06/17 06:20 Hct 44.3 % (42.0-52.0) 10/06/17 06:20 MCV 94.1 fl (80.0-105.0) 10/06/17 06:20 MCH 33.3 pg (25.0-35.0) 10/06/17 06:20 MCHC 35.4 g/dl (31.0-37.0) 10/06/17 06:20 RDW 12.9 % (11.5-14.5) 10/06/17 06:20 Plt Count 121 10^3/uL (120.0-450.0) 10/06/17 06:20 MPV 10.0 fl (7.0-11.0) 10/06/17 06:20 Gran % 67.0 % (50.0-68.0) 10/06/17 06:20 Lymph % (Auto) 19.1 % (22.0-35.0) L 10/06/17 06:20 [place] % (Auto) 9.1 % (1.0-6.0) H 10/06/17 06:20 Eos % (Auto) 3.9 % (1.5-5.0) 10/06/17 06:20 Baso % (Auto) 0.9 % (0.0-3.0) 10/06/17 06:20 Gran # 3.83 (1.4-6.5) 10/06/17 06:20 Lymph # (Auto) 1.1 (1.2-3.4) L 10/06/17 06:20 [place] # (Auto) 0.5 (0.1-0.6) 10/06/17 06:20 Eos # (Auto) 0.2 (0.0-0.7) 10/06/17 06:20 Baso # (Auto) 0.05 K/mm3 (0.0-2.0) 10/06/17 06:20 PT 10.3 SECONDS (9.4-12.5) 10/05/17 13:00 INR 0.91 10/05/17 13:00 APTT 32.6 Seconds (25.1-36.5) 10/05/17 13:00 Sodium 136 mmol/L (132-148) 10/06/17 06:20 Potassium 4.1 mmol/L (3.6-5.0) 10/06/17 06:20 Chloride 104 mmol/L (98-107) 10/06/17 06:20 Carbon Dioxide 26 mmol/L (21-33) 10/06/17 06:20 Anion Gap 10 (10-20) 10/06/17 06:20 BUN 5 mg/dL (7-21) L 10/06/17 06:20 Creatinine 0.6 mg/dl (0.8-1.5) L 10/06/17 06:20 Est GFR ( Amer) > 60 10/06/17 06:20 Est GFR (Non-Af Amer) > 60 10/06/17 06:20 Random Glucose 100 mg/dL (70-110) 10/06/17 06:20 Calcium 8.9 mg/dL (8.4-10.5) 10/06/17 06:20 Phosphorus 3.3 mg/dL (2.5-4.5) 10/06/17 06:20 Magnesium 2.3 mg/dL (1.7-2.2) H 10/06/17 06:20 Total Bilirubin 2.2 mg/dL (0.2-1.3) H 10/06/17 06:20 AST 252 U/L (17-59) H 10/06/17 06:20 ALT 153 U/L (7-56) H 10/06/17 06:20 Alkaline Phosphatase 118 U/L (38-126) 10/06/17 06:20 Total Creatine Kinase 136 U/L (35-230) 10/05/17 11:30 Total Protein 7.5 g/dL (5.8-8.3) 10/06/17 06:20 Albumin 3.8 g/dL (3.0-4.8) 10/06/17 06:20 Globulin 3.6 gm/dL 10/06/17 06:20 Albumin/Globulin Ratio 1.1 (1.1-1.8) 10/06/17 06:20 Lipase 85 U/L (23-300) 10/05/17 11:30 Urine Color Yellow (YELLOW) 10/05/17 11:30 Urine Appearance Clear (CLEAR) 10/05/17 11:30 Urine pH 6.0 (4.7-8.0) 10/05/17 11:30 Ur Specific [place] >= 1.030 (1.005-1.035) 10/05/17 11:30 Urine Protein 30 mg/dL (<30 mg/dL) H 10/05/17 11:30 Urine Glucose (UA) 100 mg/dL (NEGATIVE) H 10/05/17 11:30 Urine Ketones >=80 mg/dL (NEGATIVE) 10/05/17 11:30 Urine Blood Moderate (NEGATIVE) H 10/05/17 11:30 Urine Nitrate Negative (NEGATIVE) 10/05/17 11:30 Urine Bilirubin Moderate (NEGATIVE) H 10/05/17 11:30 Urine Urobilinogen 1.0 E.U./dL (<1 E.U./dL) H 10/05/17 11:30 Ur Leukocyte Esterase Trace [place]/uL (NEGATIVE) H 10/05/17 11:30 Urine RBC 20 - 25 /hpf (0-2) 10/05/17 11:30 Urine WBC 5 - 10 /hpf (0-6) 10/05/17 11:30 Ur Epithelial Cells 0 - 2 /hpf (0-5) 10/05/17 11:30 Urine Bacteria Many (NEG) 10/05/17 11:30 Urine Other Uyeast 10/05/17 11:30 Salicylates < 1 mg/dL (2.0-20.0) L 10/05/17 11:30 Urine Opiates Screen Positive (NEGATIVE) H 10/05/17 16:25 Urine Methadone Screen Negative (NEGATIVE) 10/05/17 16:25 Acetaminophen < 10.0 ug/ml (10.0-20.0) L 10/05/17 11:30 Ur Barbiturates Screen Negative (NEGATIVE) 10/05/17 16:25 Ur Phencyclidine Scrn Negative (NEGATIVE) 10/05/17 16:25 Ur Amphetamines Screen Negative (NEGATIVE) 10/05/17 16:25 U Benzodiazepines Scrn Negative (NEGATIVE) 10/05/17 16:25 U Oth Cocaine Metabols Negative (NEGATIVE) 10/05/17 16:25 U Cannabinoids Screen Negative (NEGATIVE) 10/05/17 16:25 Alcohol, Quantitative 44 mg/dL (0-10) H 10/05/17 11:30 Hepatitis A IgM Ab Negative (NEGATIVE) 10/05/17 11:30 Hep Bs Antigen Negative (NEGATIVE) 10/05/17 11:30 Hep B Core IgM Ab Negative (NEGATIVE) 10/05/17 11:30 Hepatitis C Antibody Reactive (NEGATIVE) 10/05/17 11:30 Discharge Exam - Head Exam Head Exam: ATRAUMATIC, NORMAL INSPECTION, NORMOCEPHALIC - Eye Exam Eye Exam: EOMI, PERRL, Scleral icterus - ENT Exam ENT Exam: Mucous Membranes Moist - Respiratory Exam Respiratory Exam: Clear to PA & Lateral, NORMAL BREATHING PATTERN. absent: Rales, Respiratory Distress - Cardiovascular Exam Cardiovascular Exam: RRR, +S1, +S2 - GI/Abdominal Exam GI & Abdominal Exam: Guarding, Normal Bowel Sounds, Tenderness - Back Exam Back exam: absent: CVA tenderness (L), CVA tenderness (R) - Neurological Exam Neurological exam: Alert, CN II-XII Intact Additional comments: tremulous - Psychiatric Exam Psychiatric exam: Agitated, Anxious - Skin Skin Exam: Dry, Intact, Normal Color, Warm Discharge Plan - Follow Up Plan Condition: STABLE Disposition: HOME/ ROUTINE <Arnav Okeefe - Last Filed: 10/08/17 14:41> Provider - Provider Date of Admission: 10/05/17 12:25 Attending physician: Martin Lee MD Hospital Course - Lab Results Lab Results: Most Recent Lab Values WBC 5.7 10^3/ul (4.5-11.0) 10/06/17 06:20 RBC 4.71 10^6/uL (3.5-6.1) 10/06/17 06:20 Hgb 15.7 g/dL (14.0-18.0) 10/06/17 06:20 Hct 44.3 % (42.0-52.0) 10/06/17 06:20 MCV 94.1 fl (80.0-105.0) 10/06/17 06:20 MCH 33.3 pg (25.0-35.0) 10/06/17 06:20 MCHC 35.4 g/dl (31.0-37.0) 10/06/17 06:20 RDW 12.9 % (11.5-14.5) 10/06/17 06:20 Plt Count 121 10^3/uL (120.0-450.0) 10/06/17 06:20 MPV 10.0 fl (7.0-11.0) 10/06/17 06:20 Gran % 67.0 % (50.0-68.0) 10/06/17 06:20 Lymph % (Auto) 19.1 % (22.0-35.0) L 10/06/17 06:20 [place] % (Auto) 9.1 % (1.0-6.0) H 10/06/17 06:20 Eos % (Auto) 3.9 % (1.5-5.0) 10/06/17 06:20 Baso % (Auto) 0.9 % (0.0-3.0) 10/06/17 06:20 Gran # 3.83 (1.4-6.5) 10/06/17 06:20 Lymph # (Auto) 1.1 (1.2-3.4) L 10/06/17 06:20 [place] # (Auto) 0.5 (0.1-0.6) 10/06/17 06:20 Eos # (Auto) 0.2 (0.0-0.7) 10/06/17 06:20 Baso # (Auto) 0.05 K/mm3 (0.0-2.0) 10/06/17 06:20 PT 10.3 SECONDS (9.4-12.5) 10/05/17 13:00 INR 0.91 10/05/17 13:00 APTT 32.6 Seconds (25.1-36.5) 10/05/17 13:00 Sodium 136 mmol/L (132-148) 10/06/17 06:20 Potassium 4.1 mmol/L (3.6-5.0) 10/06/17 06:20 Chloride 104 mmol/L (98-107) 10/06/17 06:20 Carbon Dioxide 26 mmol/L (21-33) 10/06/17 06:20 Anion Gap 10 (10-20) 10/06/17 06:20 BUN 5 mg/dL (7-21) L 10/06/17 06:20 Creatinine 0.6 mg/dl (0.8-1.5) L 10/06/17 06:20 Est GFR ( Amer) > 60 10/06/17 06:20 Est GFR (Non-Af Amer) > 60 10/06/17 06:20 Random Glucose 100 mg/dL (70-110) 10/06/17 06:20 Calcium 8.9 mg/dL (8.4-10.5) 10/06/17 06:20 Phosphorus 3.3 mg/dL (2.5-4.5) 10/06/17 06:20 Magnesium 2.3 mg/dL (1.7-2.2) H 10/06/17 06:20 Total Bilirubin 2.2 mg/dL (0.2-1.3) H 10/06/17 06:20 AST 252 U/L (17-59) H 10/06/17 06:20 ALT 153 U/L (7-56) H 10/06/17 06:20 Alkaline Phosphatase 118 U/L (38-126) 10/06/17 06:20 Total Creatine Kinase 136 U/L (35-230) 10/05/17 11:30 Total Protein 7.5 g/dL (5.8-8.3) 10/06/17 06:20 Albumin 3.8 g/dL (3.0-4.8) 10/06/17 06:20 Globulin 3.6 gm/dL 10/06/17 06:20 Albumin/Globulin Ratio 1.1 (1.1-1.8) 10/06/17 06:20 Lipase 85 U/L (23-300) 10/05/17 11:30 Urine Color Yellow (YELLOW) 10/05/17 11:30 Urine Appearance Clear (CLEAR) 10/05/17 11:30 Urine pH 6.0 (4.7-8.0) 10/05/17 11:30 Ur Specific [place] >= 1.030 (1.005-1.035) 10/05/17 11:30 Urine Protein 30 mg/dL (<30 mg/dL) H 10/05/17 11:30 Urine Glucose (UA) 100 mg/dL (NEGATIVE) H 10/05/17 11:30 Urine Ketones >=80 mg/dL (NEGATIVE) 10/05/17 11:30 Urine Blood Moderate (NEGATIVE) H 10/05/17 11:30 Urine Nitrate Negative (NEGATIVE) 10/05/17 11:30 Urine Bilirubin Moderate (NEGATIVE) H 10/05/17 11:30 Urine Urobilinogen 1.0 E.U./dL (<1 E.U./dL) H 10/05/17 11:30 Ur Leukocyte Esterase Trace [place]/uL (NEGATIVE) H 10/05/17 11:30 Urine RBC 20 - 25 /hpf (0-2) 10/05/17 11:30 Urine WBC 5 - 10 /hpf (0-6) 10/05/17 11:30 Ur Epithelial Cells 0 - 2 /hpf (0-5) 10/05/17 11:30 Urine Bacteria Many (NEG) 10/05/17 11:30 Urine Other Uyeast 10/05/17 11:30 Salicylates < 1 mg/dL (2.0-20.0) L 10/05/17 11:30 Urine Opiates Screen Positive (NEGATIVE) H 10/05/17 16:25 Urine Methadone Screen Negative (NEGATIVE) 10/05/17 16:25 Acetaminophen < 10.0 ug/ml (10.0-20.0) L 10/05/17 11:30 Ur Barbiturates Screen Negative (NEGATIVE) 10/05/17 16:25 Ur Phencyclidine Scrn Negative (NEGATIVE) 10/05/17 16:25 Ur Amphetamines Screen Negative (NEGATIVE) 10/05/17 16:25 U Benzodiazepines Scrn Negative (NEGATIVE) 10/05/17 16:25 U Oth Cocaine Metabols Negative (NEGATIVE) 10/05/17 16:25 U Cannabinoids Screen Negative (NEGATIVE) 10/05/17 16:25 Alcohol, Quantitative 44 mg/dL (0-10) H 10/05/17 11:30 Hepatitis A IgM Ab Negative (NEGATIVE) 10/05/17 11:30 Hep Bs Antigen Negative (NEGATIVE) 10/05/17 11:30 Hep B Core IgM Ab Negative (NEGATIVE) 10/05/17 11:30 Hepatitis C Antibody Reactive (NEGATIVE) 10/05/17 11:30 Attending/Attestation - Attestation I have personally seen and examined this patient.: Yes I have fully participated in the care of the patient.: Yes I have reviewed all pertinent clinical information, including history, physical exam and plan: Yes
== END 2017-10-06 18:45 | disposition home or self-care (01) ==
LOC: ED 10:33 → ERH 12:25 → 3RSO 15:26
PROVIDERS: ADMIT Internal Medicine; ATTEND Internal Medicine
DX: F10.239 Alcohol dependence with withdrawal, unspecified (principal); N39.0 Urinary tract infection, site not specified; B19.20 Unspecified viral hepatitis C without hepatic coma; I10 Essential (primary) hypertension; G89.29 Other chronic pain; M54.9 Dorsalgia, unspecified; K52.9 Noninfective gastroenteritis and colitis, unspecified; F17.210 Nicotine dependence, cigarettes, uncomplicated; R56.9 Unspecified convulsions; Z91.19 Patient's noncompliance with other medical treatment and regimen; F41.9 Anxiety disorder, unspecified; F19.10 Other psychoactive substance abuse, uncomplicated; Z88.0 Allergy status to penicillin
CPT/HCPCS: 36415; 71045; 80053; 80074; 80320; 80324; 80329; 80345; 80346; 80349; 80353; 80358; 80361; 81001; 82550; 83690; 83735; 83992; 84100; 85025; 85610; 85730; 87086; 93005; 96365; 96368; 96375; 96376; 99285; G0378; J2060; J2270; J2405; J3411; J3475; J3480; J7030; J7070

== ENCOUNTER 2017-10-06 18:45 | Observation (INO) | payer MEDICAID ==
[2017-10-06 18:46] VITALS: BMI 24.3
--- NOTE | 2017-10-06 19:43 | ED PDOC ---
Arrival/HPI - History of Present Illness Time/Duration: > week Symptom Onset: Gradual Symptom Course: Unchanged Activities at Onset: Rest <Zoltan Swan - Last Filed: 10/06/17 19:56> - General Historian: Patient <Popeye Haddad - Last Filed: 10/06/17 21:15> - General Chief Complaint: Abdominal Pain Time Seen by Provider: 10/06/17 18:48 - History of Present Illness Narrative History of Present Illness (Text): 10/06/17 19:40 Patient is a 46 year old male with PMHx HTN, DM, seizures, hep C, chronic back pain, and EtOH abuse who presents to ED with abdominal pain and tremors after leaving [facility] general medical floor against medical advice earlier this evening to get his keys. [facility] contacted the patient by phone asking him to come back to the ED. Currently patient is experiencing diffuse left sided abdominal pain, tremors, nausea, and recently vomited yellow non-bloody vomitus. Pt states he experiences all of these symptoms when he does not drink. Pt admits to drinking 4 pints of vodka and 2 24 oz beers per day, states he last drank 2 beers at 8pm yesterday evening. (Zoltan Swan) Past Medical History - Provider Review Nursing Documentation Reviewed: Yes - Past History Past History: No Previous - Infectious Disease Hx of Infectious Diseases: None - Tetanus Immunization Tetanus Immunization: Unknown, Up to Date - Past Medical History Past Medical History: No Previous - Cardiac Hx Cardiac Disorders: Yes Hx Hypertension: Yes - Pulmonary Hx Respiratory Disorders: Yes (SMOKES 2 CIGARETTES A DAY.DEPENDING ON MOOD AND HOW MUCH MONEY HE HAS.) - Neurological Hx Neurological Disorder: No - HEENT Hx HEENT Disorder: No - Renal Hx Renal Disorder: No - Endocrine/Metabolic Hx Endocrine Disorders: No - Hematological/Oncological Hx Blood Disorders: No - Integumentary Hx Dermatological Disorder: Yes (TATOOS) - Musculoskeletal/Rheumatological Hx Musculoskeletal Disorders: Yes Hx Back Pain: Yes Hx Falls: Yes Other/Comment: CHRONIC BACK PAIN - Gastrointestinal Hx Gastrointestinal Disorders: Yes (ETOH ABUSE-MALNUTRITION,DRINKS DAILY 3 BOTTLES 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 - Genitourinary/Gynecological Hx Genitourinary Disorders: No - Psychiatric Hx Psychophysiologic Disorder: Yes Hx Depression: Yes Hx Substance Use: Yes (H/O HEROIN/COCAINE USE.LAST USED 3 YRS AGO.) Other/Comment: Past drug user,ETOHA ABUSE,SMOKES CIGARETTES - Past Surgical History Past Surgical History: No Previous - Anesthesia Hx Anesthesia: No Hx Anesthesia Reactions: No Hx Malignant Hyperthermia: No - Suicidal Assessment Feels Threatened In Home Enviroment: No <Zoltan Swan - Last Filed: 10/06/17 19:56> Family/Social History - Physician Review Nursing Documentation Reviewed: Yes Family/Social History: Unknown Family HX Smoking Status: Current Some Days Smoker Hx Alcohol Use: Yes (DRINKS DAILY SINCE 4.5 YRS AGO.WHEN .DRINKS 3 BTLS OF BLK RENE/BEER) Frequency of alcohol use: Daily Hx Substance Use: Yes (H/O HEROIN/COCAINE USE.LAST USED 3 YRS AGO.) Substance used: COCAINE/IV DRUG USE HEROIN Hx Substance Use Treatment: No <Zoltan Swan - Last Filed: 10/06/17 19:56> Allergies/Home Meds <Zoltan Swan - Last Filed: 10/06/17 19:56> <Popeye Haddad - Last Filed: 10/06/17 21:15> Allergies/Adverse Reactions: Allergies Penicillins Allergy (Verified 10/06/17 19:21) RASH pentazocine lactate [From Talwin] Allergy (Verified 10/06/17 19:21) ANAPHYLAXIS Home Medications: Home Meds Medication Instructions Recorded Confirmed Alprazolam [Xanax] 2 mg PO QID 08/05/17 10/06/17 Review of Systems - Physician Review All systems were reviewed & negative as marked: Yes - Review of Systems Constitutional: absent: Fevers Eyes: absent: Vision Changes, Photophobia ENT: absent: Sore Throat, Rhinorrhea Respiratory: SOB. absent: Cough, Wheezing Cardiovascular: absent: Chest Pain, Palpitations Gastrointestinal: Abdominal Pain, Diarrhea, Nausea, Vomiting. absent: Constipation, Hematochezia, Hematemesis Genitourinary Male: absent: Dysuria, Frequency Musculoskeletal: Back Pain. absent: Arthralgias Neurological: Other (+tremors). absent: Headache, Dizziness Hemo/Lymphatic: absent: Easy Bleeding, Easy Bruising <Zoltan Swan - Last Filed: 10/06/17 19:56> Physical Exam Vital Signs Reviewed: Yes Temperature: Afebrile Blood Pressure: Normal Pulse: Regular Respiratory Rate: Normal Appearance: Positive for: Uncomfortable Pain Distress: Mild Mental Status: Positive for: Alert and Oriented X 3 - Systems Exam Head: Present: Atraumatic, Normocephalic Pupils: Present: PERRL Extroacular Muscles: Present: EOMI Conjunctiva: Present: Normal Mouth: Present: Moist Mucous Membranes Pharnyx: Present: Normal. No: ERYTHEMA, EXUDATE, Uvular Deviation Nose (External): Present: Atraumatic Neck: Present: Normal Range of Motion. No: JVD Respiratory/Chest: Present: Clear to Auscultation, Good Air Exchange. No: Respiratory Distress, Accessory Muscle Use, Wheezes Cardiovascular: Present: Regular Rate and Rhythm, Normal S1, S2, Peripheal Pulses Present. No: Murmurs Abdomen: Present: Tenderness, Normal Bowel Sounds. No: Distention, Peritoneal Signs, Rebound, Guarding Back: Present: Midline Tenderness Upper Extremity: Present: Normal Inspection, NORMAL PULSES. No: Cyanosis, Edema , Tenderness, Swelling Lower Extremity: Present: Normal Inspection, NORMAL PULSES. No: Edema Neurological: Present: GCS=15, CN II-XII Intact, Speech Normal, Normal Cerebellar Funct, Normal 2Pt Descrimination (+impaired finger to nose test) Skin: Present: Warm, Dry, Normal Color. No: Rashes Psychiatric: Present: Alert, Oriented x 3 <Zoltan Swna - Last Filed: 10/06/17 19:56> Vital Signs Temp Pulse Resp BP Pulse Ox 10/06/17 19:10 98.4 F 95 H 19 122/82 95 Medical Decision Making <Zoltan Swan - Last Filed: 10/06/17 19:56> <Popeye Haddad - Last Filed: 10/06/17 21:15> ED Course and Treatment: 10/06/17 19:59 1) EtOH withdrawal * Librium 50 mg PO STAT * Readmit to general medical floor (Zoltan Swan) In agreement with resident note which contains more details about the patient. Patient was seen and evaluated with resident. Came up with plan and treatment together. 46 year old male presents complaining of diffuse left sided abdominal pain, tremors, nausea, and vomiting. Patient experiences these symptoms when he does not drink. Plan: -- Librium (Popeye Haddad) - Medication Orders Current Medication Orders: Discontinued Medications Chlordiazepoxide (Librium) 50 mg PO STAT STA PRN Reason: Protocol Stop: 10/06/17 19:57 Last Admin: 10/06/17 20:18 Dose: 50 mg <Zoltan Swan - Last Filed: 10/06/17 19:56> - PA / CUSTOMER CARE PROFESSIONAL / Resident Statement MD/DO has reviewed & agrees with the documentation as recorded. MD/DO has examined the patient and agrees with the treatment plan. - Scribe Statement The provider has reviewed the documentation as recorded by the Scribe <Popeye Haddad - Last Filed: 10/06/17 21:15> - Scribe Statement Evita Ortega Provider Scribe Attestation: All medical record entries made by the Scribe were at my direction and personally dictated by me. I have reviewed the chart and agree that the record accurately reflects my personal performance of the history, physical exam, medical decision making, and the department course for this patient. I have also personally directed, reviewed, and agree with the discharge instructions and disposition. (Popeye Haddad) Disposition/Present on Arrival - Present on Arrival Any Indicators Present on Arrival: No History of DVT/PE: No History of Uncontrolled Diabetes: No Urinary Catheter: No History of Decub. Ulcer: No History Surgical Site Infection Following: None - Disposition Have Diagnosis and Disposition been Completed?: Yes Disposition Time: 20:01 Patient Plan: Admission <Zoltan Swan - Last Filed: 10/06/17 19:56> <Popeye Haddad - Last Filed: 10/06/17 21:15> - Disposition Diagnosis: Alcohol withdrawal Disposition: HOSPITALIZED Patient Problems: Current Active Problems Problem Status Onset Alcohol withdrawal Acute Condition: FAIR Forms: Wi[employer] (Hungarian)
--- NOTE | 2017-10-06 21:35 | CP.PCM.HP ---
<MigelMahi - Last Filed: 10/07/17 06:49> History of Present Illness - History of Present Illness History of Present Illness: HISTORY & PHYSICAL NOTE FOR HOSPITALIST TEAM Mahi Lainez PGY-1 CC: Tremors and abdominal pain 46 yo M with PMH of hypertension, seizures, hepatitis C, chronic back pain, and alcohol abuse who presents to the ED with complaint of tremors and abdominal pain. Pt was admitted on 10/05/17, and had left the building earlier today without notifying nursing staff. He reports he had left to get his keys and phone outside but his interview is unclear as to exactly where he went. He claims that he didn't consume any alcohol after he left. Patient is poor historian due and changes story frequently to medical providers. He reports drinking 1-2 beers 10/04/17 at 8 pm and at 2 am yesterday, he started to have tremors and abdominal pain. He still complains of tremors. He continues to have "stabbing pain" that radiates to the L side of his back. He reports nausea and described his vomit as being yellow in color. He complains of diarrhea for the past 11 days and burning with urination intermittently. He denies fevers, lightheadedness, dizziness, weakness and denies loss of consciousness. Denies hematuria, melena, chest pain, shortness of breath, hematemesis, new seizures ( last was 2 months ago). PMD: doesn't follow-up any doctors PMH: as above PSH: Denies Fam Hx: Mom with HTN, denies other hx Soc Hx: 1 pint of alcohol per day for past 5 years (last reported drink 8pm yesterday), smokes 1/2 to 1 ppd cigarettes daily for > 30 yrs, denies using any illicits/IVDA Present on Admission - Present on Admission Any Indicators Present on Admission: No Review of Systems - Review of Systems All systems: reviewed and no additional remarkable complaints except (as per HPI ) Past Patient History - Infectious Disease Hx of Infectious Diseases: None - Tetanus Immunizations Tetanus Immunization: Unknown, Up to Date - Past Social History Smoking Status: Current Some Days Smoker - CARDIAC Hx Cardiac Disorders: Yes Hx Hypertension: Yes - PULMONARY Hx Respiratory Disorders: Yes (SMOKES 2 CIGARETTES A DAY.DEPENDING ON MOOD AND HOW MUCH MONEY HE HAS.) - NEUROLOGICAL Hx Neurological Disorder: No - HEENT Hx HEENT Problems: No - RENAL Hx Chronic Kidney Disease: No - ENDOCRINE/METABOLIC Hx Endocrine Disorders: No - HEMATOLOGICAL/ONCOLOGICAL Hx Blood Disorders: No - INTEGUMENTARY Hx Dermatological Problems: Yes (TATOOS) - MUSCULOSKELETAL/RHEUMATOLOGICAL Hx Musculoskeletal Disorders: Yes Hx Back Pain: Yes Hx Falls: Yes Other/Comment: CHRONIC BACK PAIN - GASTROINTESTINAL Hx Gastrointestinal Disorders: Yes (ETOH ABUSE-MALNUTRITION,DRINKS DAILY 3 BOTTLES 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 - GENITOURINARY/GYNECOLOGICAL Hx Genitourinary Disorders: No - PSYCHIATRIC Hx Psychophysiologic Disorder: Yes Hx Depression: Yes Hx Substance Use: Yes (H/O HEROIN/COCAINE USE.LAST USED 3 YRS AGO.) Other/Comment: Past drug user,ETOHA ABUSE,SMOKES CIGARETTES - SURGICAL HISTORY Hx Surgeries: No - ANESTHESIA Hx Anesthesia: No Hx Anesthesia Reactions: No Hx Malignant Hyperthermia: No Meds Allergies/Adverse Reactions: Allergies Allergy/AdvReac Type Severity Reaction Status Date / Time Penicillins Allergy RASH Verified 10/06/17 19:21 pentazocine lactate Allergy ANAPHYLAXIS Verified 10/06/17 19:21 [From Michelle] Physical Exam - Constitutional Appears: Non-toxic, No Acute Distress - Head Exam Head Exam: ATRAUMATIC, NORMAL INSPECTION - Eye Exam Eye Exam: EOMI, Normal appearance Pupil Exam: PERRL - ENT Exam ENT Exam: Mucous Membranes Moist, Normal Exam - Neck Exam Neck exam: Positive for: Full Rom, Normal Inspection - Respiratory Exam Respiratory Exam: Clear to Auscultation Bilateral, NORMAL BREATHING PATTERN - Cardiovascular Exam Cardiovascular Exam: REGULAR RHYTHM, +S1, +S2 - GI/Abdominal Exam GI & Abdominal Exam: Normal Bowel Sounds, Tenderness (+ LLQ). absent: Guarding , Rigid - Extremities Exam Extremities exam: Positive for: normal inspection. Negative for: calf tenderness, joint swelling, pedal edema - Neurological Exam Neurological exam: Alert, Oriented x3 Additional comments: fine tremors when asked to extends arms - Psychiatric Exam Psychiatric exam: Normal Affect, Normal Mood - Skin Skin Exam: Dry, Intact, Warm Results - Vital Signs Recent Vital Signs: Last Vital Signs Temp 98.4 F 10/06/17 19:10 Pulse 95 H 10/06/17 19:10 Resp 19 08/07/18 19:10 BP 122/82 10/06/17 19:10 Pulse Ox 95 10/06/17 19:10 - Labs Result Diagrams: 10/07/17 06:00 10/07/17 06:00 Assessment & Plan - Assessment and Plan (Free Text) Assessment: 46 yo M with PMH of hypertension, seizures, hepatitis C, chronic back pain, and alcohol abuse who being readmitted after leaving the hospital earlier today. He originally came in with complaints of tremors and abdominal pain. He is admitted for active alcohol withdrawal and abdominal pain with nausea/emesis/ diarrhea. Plan: Alcohol withdrawal Pt has history of alcohol abuse. Left [facility] without notifying staff. Ativan 2q4h ab IV and 1q1h prn IV for withdrawal, prevent DTs Avoid librium at this time due to elevated LFTs Start Banana bag. Will start NS afterwards F/u alcohol serum F/u LFTs, trend daily Thiamine, folate & multivitamins after banana bag administration Replete electrolytes as necessary. Seizure precautions CIWA protocol- monitor daily Aspiration precautions High fall risk precautions Transaminitis Likely secondary to alcohol abuse Hepatitis panel fu f/u LFTs f/u PT/PTT Abdominal pain + N/V/D Likely secondary to alcohol withdrawal stool ova & parasites, cdiff fu zofran prn Hx seizures unclear etiology, but given hx of alcohol abuse, suspect 2/2 alcohol use ativan already ordered for withdrawal also covers for seizures Chronic back pain Avoid aggressive pain meds as already on benzos HTN questionable compliance with unspecified home antihypertensive med mildly elevated BP currently, likely secondary to withdrawal +/- pain continue to monitor, no need to treat at this time, will likely improve with pain control and withdrawal control Tobacco use disorder Offer nicoderm patch Advise cessation GI/DVT: Protonix/SCD Pt seen, examined and reviewed by attending physician, Dr. Mejia <Renay Mejia - Last Filed: 10/07/17 10:41> Results - Vital Signs Recent Vital Signs: Last Vital Signs Temp 97.6 F 10/07/17 05:59 Pulse 73 10/07/17 06:00 Resp 19 10/07/17 05:59 BP 133/96 H 10/07/17 05:59 Pulse Ox 98 10/07/17 05:59 - Labs Result Diagrams: 10/07/17 06:00 10/07/17 06:00 Labs: Laboratory Results - last 24 hr 10/06/17 10/06/17 10/06/17 22:53 23:14 23:14 WBC 5.1 RBC 4.85 Hgb 16.4 Hct 45.9 MCV 94.6 MCH 33.8 MCHC 35.7 RDW 13.3 Plt Count 176 MPV 11.0 Gran % 57.7 Lymph % (Auto) 28.8 [place] % (Auto) 7.2 H Eos % (Auto) 4.9 Baso % (Auto) 1.4 Gran # 2.95 Lymph # (Auto) 1.5 [place] # (Auto) 0.4 Eos # (Auto) 0.3 Baso # (Auto) 0.07 PT INR APTT Sodium Potassium Chloride Carbon Dioxide Anion Gap BUN Creatinine Est GFR ( Amer) Est GFR (Non-Af Amer) Random Glucose Calcium Phosphorus Magnesium Total Bilirubin AST ALT Alkaline Phosphatase Total Protein Albumin Globulin Albumin/Globulin Ratio Triglycerides Cholesterol LDL Cholesterol Direct HDL Cholesterol Lipase TSH 3rd Generation Urine Opiates Screen Positive H Urine Methadone Screen Negative Ur Barbiturates Screen Negative Ur Phencyclidine Scrn Negative Ur Amphetamines Screen Negative U Benzodiazepines Scrn Negative U Oth Cocaine Metabols Negative U Cannabinoids Screen Negative Alcohol, Quantitative 65 H 10/07/17 10/07/17 10/07/17 01:00 01:00 06:00 WBC 4.8 RBC 4.56 Hgb 15.1 Hct 43.2 MCV 94.7 MCH 33.1 MCHC 35.0 RDW 13.0 Plt Count 116 L MPV 10.1 Gran % 53.0 Lymph % (Auto) 29.0 [place] % (Auto) 10.4 H Eos % (Auto) 6.8 H Baso % (Auto) 0.8 Gran # 2.55 Lymph # (Auto) 1.4 [place] # (Auto) 0.5 Eos # (Auto) 0.3 Baso # (Auto) 0.04 PT 9.9 INR 0.87 APTT 31.8 Sodium 141 Potassium 4.4 Chloride 104 Carbon Dioxide 25 Anion Gap 16 BUN 3 L Creatinine 0.6 L Est GFR ( Amer) > 60 Est GFR (Non-Af Amer) > 60 Random Glucose 65 L Calcium 9.5 Phosphorus 3.6 Magnesium 2.1 Total Bilirubin 0.9 AST 248 H ALT 182 H Alkaline Phosphatase 109 Total Protein 8.1 Albumin 4.4 Globulin 3.8 Albumin/Globulin Ratio 1.2 Triglycerides Cholesterol LDL Cholesterol Direct HDL Cholesterol Lipase 59 TSH 3rd Generation Urine Opiates Screen Urine Methadone Screen Ur Barbiturates Screen Ur Phencyclidine Scrn Ur Amphetamines Screen U Benzodiazepines Scrn U Oth Cocaine Metabols U Cannabinoids Screen Alcohol, Quantitative 10/07/17 10/07/17 10/07/17 06:00 06:00 06:00 WBC RBC Hgb Hct MCV MCH MCHC RDW Plt Count MPV Gran % Lymph % (Auto) [place] % (Auto) Eos % (Auto) Baso % (Auto) Gran # Lymph # (Auto) [place] # (Auto) Eos # (Auto) Baso # (Auto) PT INR APTT Sodium 139 Potassium 4.5 Chloride 106 Carbon Dioxide 25 Anion Gap 12 BUN 6 L Creatinine 0.7 L Est GFR ( Amer) > 60 Est GFR (Non-Af Amer) > 60 Random Glucose 92 Calcium 9.2 Phosphorus 4.4 Magnesium 1.9 Total Bilirubin 1.0 AST 204 H ALT 158 H Alkaline Phosphatase 95 Total Protein 6.7 Albumin 3.6 Globulin 3.1 Albumin/Globulin Ratio 1.1 Triglycerides 74 Cholesterol 182 LDL Cholesterol Direct 50 HDL Cholesterol 110 H Lipase TSH 3rd Generation 4.62 Urine Opiates Screen Urine Methadone Screen Ur Barbiturates Screen Ur Phencyclidine Scrn Ur Amphetamines Screen U Benzodiazepines Scrn U Oth Cocaine Metabols U Cannabinoids Screen Alcohol, Quantitative Attending/Attestation - Attestation I have personally seen and examined this patient.: Yes I have fully participated in the care of the patient.: Yes I have reviewed all pertinent clinical information: Yes Notes (Text): 10/07/17 10:39 Pt seen with resident by bedside. Agree with physial findings,diagnosis and treatment plan.
[2017-10-06] MEDS ORDERED: Multivitamin (MVI) 10 ML, Thiamine 100 MG, Folic Acid 1 MG in Sodium Chloride 0.9% 1,00... IV ONE ×2 (22:14)
[2017-10-06 23:21] LABS: BARBITURATES, UR NEGATIVE (NEGATIVE); BENZODIAZEPINES, UR NEGATIVE (NEGATIVE); OPIATES, UR POSITIVE (NEGATIVE); PHENCYCLIDINE, UR NEGATIVE (NEGATIVE)
[2017-10-06 23:25] LABS: BASO # 0.07 K/mm3 (0.0-2.0); BASO % 1.4 % (0.0-3.0); EOS # 0.3 (0.0-0.7); EOS % 4.9 % (1.5-5.0); GRAN # 2.95 (1.4-6.5); GRAN % 57.7 % (50.0-68.0); HEMOGLOBIN 16.4 g/dL (14.0-18.0); LYMPH # 1.5 (1.2-3.4); LYMPH % 28.8 % (22.0-35.0); MEAN CELL VOLUME 94.6 fl (80.0-105.0); MEAN CORPUSCULAR HEMOGLOBIN 33.8 pg (25.0-35.0); MEAN CORPUSCULAR HGB CONC 35.7 g/dl (31.0-37.0); MONO # 0.4 (0.1-0.6); MONO % 7.2 % (1.0-6.0); RBC 4.85 10^6/uL (3.5-6.1); RED CELL DISTRIBUTION WIDTH 13.3 % (11.5-14.5); WHITE BLOOD COUNT 5.1 10^3/ul (4.5-11.0)
[2017-10-07 01:22] LABS: PARTIAL THROMBOPLASTIN TIME 31.8 Seconds (25.1-36.5)
[2017-10-07 01:32] LABS: ALB/GLOB RATIO 1.2 (1.1-1.8); ALBUMIN 4.4 g/dL (3.0-4.8); ALT/SGPT 182 U/L (7-56); AST/SGOT 248 U/L (17-59); BLOOD UREA NITROGEN 3 mg/dL (7-21); CALCIUM 9.5 mg/dL (8.4-10.5); GFR AFRICAN-AMERICAN > 60; GFR NON-AFRICAN AMERICAN > 60; LIPASE 59 U/L (23-300)
[2017-10-07 01:39] LABS: INR 0.87; PROTHROMBIN TIME 9.9 SECONDS (9.4-12.5)
[2017-10-07 06:22] LABS: BASO # 0.04 K/mm3 (0.0-2.0); BASO % 0.8 % (0.0-3.0); EOS # 0.3 (0.0-0.7); EOS % 6.8 % (1.5-5.0); GRAN # 2.55 (1.4-6.5); HEMOGLOBIN 15.1 g/dL (14.0-18.0); LYMPH # 1.4 (1.2-3.4); MEAN CELL VOLUME 94.7 fl (80.0-105.0); MEAN CORPUSCULAR HEMOGLOBIN 33.1 pg (25.0-35.0); MEAN PLATELET VOLUME 10.1 fl (7.0-11.0); MONO # 0.5 (0.1-0.6); MONO % 10.4 % (1.0-6.0); RBC 4.56 10^6/uL (3.5-6.1); WHITE BLOOD COUNT 4.8 10^3/ul (4.5-11.0)
[2017-10-07 06:45] LABS: ALB/GLOB RATIO 1.1 (1.1-1.8); ALBUMIN 3.6 g/dL (3.0-4.8); ALT/SGPT 158 U/L (7-56); AST/SGOT 204 U/L (17-59); BLOOD UREA NITROGEN 6 mg/dL (7-21); CALCIUM 9.2 mg/dL (8.4-10.5); GFR AFRICAN-AMERICAN > 60; GFR NON-AFRICAN AMERICAN > 60
--- NOTE | 2017-10-07 07:27 | CP.PCM.PN ---
<Noe Mancuso - Last Filed: 10/07/17 17:36> Subjective - Date & Time of Evaluation Date of Evaluation: 10/07/17 Time of Evaluation: 07:22 - Subjective Subjective: Pt. seen at bedside this AM; Last night patient eloped and was readmitted. EtOH levels increased from 44 on adm to 65 last night. CIWA this AM at 13. Suspect patient went out for drink; appears to have increased agitation and tremors this AM. Still complaining of back pain at this time. Having urinary complaints; UA Back XR Objective - Vital Signs/Intake and Output Vital Signs (last 24 hours): Temp Pulse Resp BP Pulse Ox 97.6 F 73 19 133/96 H 98 10/07/17 05:59 10/07/17 06:00 10/07/17 05:59 10/07/17 05:59 10/07/17 05:59 Intake and Output: 10/07/17 10/07/17 06:59 18:59 Intake Total 1060 Output Total 450 Balance 610 - Medications Medications: Current Medications Folic Acid (Folic Acid) 1 mg PO DAILY AB Sodium Chloride (Sodium Chloride 0.9%) 1,000 mls @ 100 mls/hr IV .Q10H AB Lorazepam (Ativan) 1 mg IVP Q1H PRN; Protocol PRN Reason: Symptoms of alcohol withdrawl Lorazepam (Ativan) 2 mg IVP Q4H AB PRN Reason: Protocol Multivitamins/Minerals (Therapeutic-M Tab) 1 tab PO 1000 AB Nicotine (Nicoderm Cq) 1 patch TD DAILY AB Ondansetron HCl (Zofran Inj) 4 mg IVP Q6H PRN PRN Reason: Nausea/Vomiting Pantoprazole Sodium (Protonix Inj) 40 mg IVP DAILY AB Thiamine HCl (Vitamin B1 Inj) 100 mg IM DAILY AB - Labs Labs: 10/07/17 06:00 10/07/17 06:00 PT 9.9 SECONDS (9.4-12.5) 10/07/17 01:00 INR 0.87 10/07/17 01:00 APTT 31.8 Seconds (25.1-36.5) 10/07/17 01:00 - Constitutional Appears: Agitated - Eye Exam Eye Exam: EOMI, PERRL, Scleral icterus - ENT Exam ENT Exam: Mucous Membranes Moist - Respiratory Exam Respiratory Exam: Clear to Ausculation Bilateral, NORMAL BREATHING PATTERN. absent: Rhonchi, Wheezes - Cardiovascular Exam Cardiovascular Exam: RRR, +S1, +S2 - GI/Abdominal Exam GI & Abdominal Exam: Soft, Tenderness (LLQ, LUQ ) - Back Exam Back Exam: absent: CVA tenderness (L), CVA tenderness (R) - Neurological Exam Neurological Exam: Alert, Awake, CN II-XII Intact - Psychiatric Exam Psychiatric exam: Agitated, Anxious - Skin Additional comments: some jaundicing/ yellow tinge to skin Assessment and Plan - Assessment and Plan (Free Text) Assessment: This is a 46 yo M with PMH of hypertension, seizures, hepatitis C, chronic back pain, and alcohol abuse who presents to the ED with complaint of tremors and abdominal pain. He was admitted for active alcohol withdrawal and abdominal pain with nausea/emesis/diarrhea. Plan: Alcohol withdrawal -EtOH + on adm -c/w ativan 2q4 ab + 2q1 prn -c/w thiamine, folic acid, multivit -DC NS -Pt. CIWA max score in 24H = 8 Abdominal pain + N/V/D -ddx: pancreatitis vs enteritis vs 2/2 multiple emesis and diarrheal episodes -Lipase wnl; suspect least likely to be pancreatitis -Zofran prn for nausea/emesis -clear liquid diet tolerated well; advanced to regular today Transaminitis -Etiologies: EtOH vs Alcoholic Hepatitis / Cirrhosis -LFTs unchanged from admission; continue monitoring; AST/ALT : 252/153 -PLT count borderline low -Albumin wnl -Previous Hx of HepC; patient offered treatment information Hx seizures -unclear etiology, but given hx of alcohol abuse, suspect 2/2 alcohol use -ativan already ordered for withdrawal also covers for seizures -seizure precautions Chronic back pain -DC morphine 1q4 IV prn -Start ultram 25mg PO Q6H PRN -avoid too-aggressive pain medications as already on benzos for withdrawal HTN -questionable compliance with unspecified home antihypertensive med -monitor and treat as necessary Dispo: Continue monitoring for s/s of EtOH withdrawal while pt. is Obs. Consults: N/A Ppx: SCDs for DVT, Protonix for GI Patient seen, examined, and case discussed w/ attending physician Dr. Maldonado Mancuso DO PGY1 Internal Medicine Manager Reporting - Pager [phone] <Arnav Okeefe - Last Filed: 10/08/17 14:32> Objective - Vital Signs/Intake and Output Vital Signs (last 24 hours): Temp Pulse Resp BP Pulse Ox 97.6 F 68 20 137/90 98 10/08/17 06:00 10/08/17 06:00 10/08/17 06:00 10/08/17 06:00 10/08/17 06:00 Intake and Output: 10/08/17 10/08/17 06:59 18:59 Intake Total 840 Output Total 975 Balance -135 - Labs Labs: 10/08/17 06:45 10/08/17 06:45 PT 9.9 SECONDS (9.4-12.5) 10/07/17 01:00 INR 0.87 10/07/17 01:00 APTT 31.8 Seconds (25.1-36.5) 10/07/17 01:00 Attending/Attestation - Attestation I have personally seen and examined this patient.: Yes I have fully participated in the care of the patient.: Yes I have reviewed all pertinent clinical information, including history, physical exam and plan: Yes Notes (Text): 10/08/17 14:31 Medical record note made by the resident after discussion with my direction and input after the patient was personally seen and examined by me. I have reviewed the chart and agree that the record accurately reflects by personal performance of the history, physical exam, data review, and medical decision-making, in the course for the patient. I have also personally directed the plan of care. 46 year old male with a PMHx of HTN, Hep C not treated, IVDA, alcohol dependence , chronic back pain, anxiety and non compliance with alcohol withdrawal.We will continue CIWA protocol. Nausea and vomiting is improved..Abdominal examination is benign.LFT are at base line.Patient is tolerating diet. Active smoking; smoking cessation is strongly advised. Issue of ongoing alcohol abuse was discussed in detail with him. Management plan was discussed in detail with patient. Education was provided.
[2017-10-07 07:34] LABS: HDL CHOLESTEROL 110 mg/dL (29-60)
[2017-10-07 07:44] LABS: LDL CHOLESTEROL 50 mg/dL (0-129)
[2017-10-07] MEDS: Thiamine 100 mg/ml Inj IM SCH (11:02)
[2017-10-07] MEDS: Multivitamin With Minerals Tab PO SCH (11:02)
--- NOTE | 2017-10-07 12:49 | RAD ---
Date of service: 10/07/2017 PROCEDURE: Radiographs of the Lumbar Spine. HISTORY: back pain COMPARISON: No prior. FINDINGS: BONES: Normal alignment. No listhesis. No fracture. DISC SPACES: Unremarkable. OTHER FINDINGS: None. IMPRESSION: Unremarkable radiographs of the lumbar spine.
[2017-10-07 13:29] LABS: URINE BILIRUBIN NEGATIVE (NEGATIVE); URINE BLOOD NEGATIVE (NEGATIVE); URINE GLUCOSE (UA) NEGATIVE (NEGATIVE); URINE LEUKOCYTE ESTERASE NEGATIVE Leu/uL (NEGATIVE); URINE PROTEIN NEGATIVE mg/dL (<30 mg/dL)
[2017-10-07 13:30] LABS: URINE APPEARANCE CLEAR (CLEAR); URINE COLOR YELLOW (YELLOW)
[2017-10-07 13:42] LABS: BENZODIAZEPINES, UR NEGATIVE (NEGATIVE)
[2017-10-07 13:45] LABS: BARBITURATES, UR NEGATIVE (NEGATIVE); OPIATES, UR NEGATIVE (NEGATIVE); PHENCYCLIDINE, UR NEGATIVE (NEGATIVE)
[2017-10-07 14:44] VITALS: RESP 20
--- NOTE | 2017-10-07 15:18 | CARD ---
APPROVED REPORT Date of service: 10/06/2017 EKG Measurement Heart [id number] <Conclusion> Normal sinus rhythm Minimal voltage criteria for LVH, may be normal variant Borderline ECG
[2017-10-07] MEDS: Sodium Chloride 0.9% 1,000 ML IV SCH (17:39)
[2017-10-08] MEDS: Sodium Chloride 0.9% 1,000 ML IV SCH (05:31)
[2017-10-08 07:10] LABS: BASO # 0.03 K/mm3 (0.0-2.0); BASO % 0.6 % (0.0-3.0); EOS # 0.3 (0.0-0.7); EOS % 5.4 % (1.5-5.0); GRAN # 2.56 (1.4-6.5); HEMOGLOBIN 15.4 g/dL (14.0-18.0); LYMPH # 1.5 (1.2-3.4); LYMPH % 29.7 % (22.0-35.0); MEAN CELL VOLUME 93.8 fl (80.0-105.0); MEAN CORPUSCULAR HEMOGLOBIN 33.2 pg (25.0-35.0); MEAN CORPUSCULAR HGB CONC 35.4 g/dl (31.0-37.0); MEAN PLATELET VOLUME 10.6 fl (7.0-11.0); MONO # 0.7 (0.1-0.6); MONO % 13.3 % (1.0-6.0); RBC 4.64 10^6/uL (3.5-6.1); RED CELL DISTRIBUTION WIDTH 12.8 % (11.5-14.5)
[2017-10-08 07:39] LABS: ALB/GLOB RATIO 1.1 (1.1-1.8); ALBUMIN 3.7 g/dL (3.0-4.8); ALT/SGPT 135 U/L (7-56); AST/SGOT 155 U/L (17-59); BLOOD UREA NITROGEN 7 mg/dL (7-21); CALCIUM 9.2 mg/dL (8.4-10.5); GFR AFRICAN-AMERICAN > 60; GFR NON-AFRICAN AMERICAN > 60
[2017-10-08 07:56] VITALS: BP 137/90; PULSE 68; TEMP 97.6; O2SAT 98
[2017-10-08] MEDS: Multivitamin With Minerals Tab PO SCH (09:43)
[2017-10-08] MEDS: Thiamine 100 mg/ml Inj IM SCH (09:43)
--- NOTE | 2017-10-08 23:48 | CP.PCM.DIS ---
<MancusoNoe - Last Filed: 10/09/17 00:26> Provider - Provider Date of Admission: 10/06/17 21:10 Attending physician: Arnav Okeefe MD Primary care physician: Arnav Chicas Time Spent in preparation of Discharge (in minutes): 40 Diagnosis - Discharge Diagnosis (1) Alcohol withdrawal Status: Acute Priority: High (2) Abdominal pain Status: Acute Priority: High (3) Hepatitis Status: Chronic Priority: Medium (4) Tobacco abuse counseling Status: Chronic Priority: Medium (5) Back pain Status: Chronic Priority: Low (6) HTN (hypertension) Status: Chronic Priority: Low Hospital Course - Lab Results Lab Results: Most Recent Lab Values WBC 5.0 10^3/ul (4.5-11.0) 10/08/17 06:45 RBC 4.64 10^6/uL (3.5-6.1) 10/08/17 06:45 Hgb 15.4 g/dL (14.0-18.0) 10/08/17 06:45 Hct 43.5 % (42.0-52.0) 10/08/17 06:45 MCV 93.8 fl (80.0-105.0) 10/08/17 06:45 MCH 33.2 pg (25.0-35.0) 10/08/17 06:45 MCHC 35.4 g/dl (31.0-37.0) 10/08/17 06:45 RDW 12.8 % (11.5-14.5) 10/08/17 06:45 Plt Count 129 10^3/uL (120.0-450.0) 10/08/17 06:45 MPV 10.6 fl (7.0-11.0) 10/08/17 06:45 Gran % 51.0 % (50.0-68.0) 10/08/17 06:45 Lymph % (Auto) 29.7 % (22.0-35.0) 10/08/17 06:45 [place] % (Auto) 13.3 % (1.0-6.0) H 10/08/17 06:45 Eos % (Auto) 5.4 % (1.5-5.0) H 10/08/17 06:45 Baso % (Auto) 0.6 % (0.0-3.0) 10/08/17 06:45 Gran # 2.56 (1.4-6.5) 10/08/17 06:45 Lymph # (Auto) 1.5 (1.2-3.4) 10/08/17 06:45 [place] # (Auto) 0.7 (0.1-0.6) H 10/08/17 06:45 Eos # (Auto) 0.3 (0.0-0.7) 10/08/17 06:45 Baso # (Auto) 0.03 K/mm3 (0.0-2.0) 10/08/17 06:45 PT 9.9 SECONDS (9.4-12.5) 10/07/17 01:00 INR 0.87 10/07/17 01:00 APTT 31.8 Seconds (25.1-36.5) 10/07/17 01:00 Sodium 138 mmol/L (132-148) 10/08/17 06:45 Potassium 3.9 mmol/L (3.6-5.0) 10/08/17 06:45 Chloride 104 mmol/L (98-107) 10/08/17 06:45 Carbon Dioxide 25 mmol/L (21-33) 10/08/17 06:45 Anion Gap 13 (10-20) 10/08/17 06:45 BUN 7 mg/dL (7-21) 10/08/17 06:45 Creatinine 0.6 mg/dl (0.8-1.5) L 10/08/17 06:45 Est GFR ( Amer) > 60 10/08/17 06:45 Est GFR (Non-Af Amer) > 60 10/08/17 06:45 Random Glucose 101 mg/dL (70-110) 10/08/17 06:45 Calcium 9.2 mg/dL (8.4-10.5) 10/08/17 06:45 Phosphorus 4.6 mg/dL (2.5-4.5) H 10/08/17 06:45 Magnesium 1.8 mg/dL (1.7-2.2) 10/08/17 06:45 Total Bilirubin 0.8 mg/dL (0.2-1.3) 10/08/17 06:45 AST 155 U/L (17-59) H D 10/08/17 06:45 ALT 135 U/L (7-56) H 10/08/17 06:45 Alkaline Phosphatase 100 U/L (38-126) 10/08/17 06:45 Total Protein 7.0 g/dL (5.8-8.3) 10/08/17 06:45 Albumin 3.7 g/dL (3.0-4.8) 10/08/17 06:45 Globulin 3.3 gm/dL 10/08/17 06:45 Albumin/Globulin Ratio 1.1 (1.1-1.8) 10/08/17 06:45 Triglycerides 74 mg/dL (35-160) 10/07/17 06:00 Cholesterol 182 mg/dL (130-200) 10/07/17 06:00 LDL Cholesterol Direct 50 mg/dL (0-129) 10/07/17 06:00 HDL Cholesterol 110 mg/dL (29-60) H 10/07/17 06:00 Lipase 59 U/L (23-300) 10/07/17 01:00 TSH 3rd Generation 4.62 mIU/mL (0.46-4.68) 10/07/17 06:00 Urine Color Yellow (YELLOW) 10/07/17 12:38 Urine Appearance Clear (CLEAR) 10/07/17 12:38 Urine pH 6.0 (4.7-8.0) 10/07/17 12:38 Ur Specific [place] <= 1.005 (1.005-1.035) 10/07/17 12:38 Urine Protein Negative mg/dL (<30 mg/dL) 10/07/17 12:38 Urine Glucose (UA) Negative mg/dL (NEGATIVE) 10/07/17 12:38 Urine Ketones Negative mg/dL (NEGATIVE) 10/07/17 12:38 Urine Blood Negative (NEGATIVE) 10/07/17 12:38 Urine Nitrate Negative (NEGATIVE) 10/07/17 12:38 Urine Bilirubin Negative (NEGATIVE) 10/07/17 12:38 Urine Urobilinogen 1.0 E.U./dL (<1 E.U./dL) H 10/07/17 12:38 Ur Leukocyte Esterase Negative [place]/uL (NEGATIVE) 10/07/17 12:38 Urine Opiates Screen Negative (NEGATIVE) 10/07/17 13:00 Urine Methadone Screen Negative (NEGATIVE) 10/07/17 13:00 Ur Barbiturates Screen Negative (NEGATIVE) 10/07/17 13:00 Ur Phencyclidine Scrn Negative (NEGATIVE) 10/07/17 13:00 Ur Amphetamines Screen Negative (NEGATIVE) 10/07/17 13:00 U Benzodiazepines Scrn Negative (NEGATIVE) 10/07/17 13:00 U Oth Cocaine Metabols No result (NEGATIVE) 10/07/17 13:00 U Cannabinoids Screen Negative (NEGATIVE) 10/07/17 13:00 Alcohol, Quantitative 65 mg/dL (0-10) H 10/06/17 23:14 HIV 1&2 Ag/Ab, 4th Gen Nonreactive (Nonreactive) 10/07/17 06:00 - Hospital Course Hospital Course: Noe Mancuso DO PGY1 Internal Medicine [employer] - Hospital Discharge Summary 46 yo M with PMH of hypertension, seizures, hepatitis C, chronic back pain, and alcohol abuse who initially presented to [facility] ED on 10/05 with complaint of tremors and abdominal pain. Of note, patient is poor historian due to frequently changing story among medical providers. He reports drinking 1-2 beers last night at 8 pm and at 2 am this morning, he started to have tremors and abdominal pain. He characterizes the pain as stabbing that radiates to the back. He had nausea and described his vomit as being yellow in color. He complains of diarrhea for the past 10 days and burning with urination intermittently. He was subsequently admitted for management of alcohol withdrawal, and abdominal pain w/ poor PO intake and N/V/D. Pt. was kept NPO and started on IVF as well as zofran for N/V; it was noted that his LFTs were elevated however patient is a known for a significant history of EtOH abuse as well as a PMH of untreated hep C. Lipase and amylase were within normal limits. For EtOH withdrawals patient was started on CIWA protocol, as well as IVF ( banana bag) and thiamine, folic acid, and multivitamin. Through hospital course, Diet advanced; hes tolerating well on full as well as CLD; Day after admission, patient signed out AMA. He was noted to have a elevated EtOH upon return from elopement. He was subsequently readmitted; and regimen was resumed. He tolerated well for the remainder of the course; noted to have CIWA of 2 prior to discharge. Patient was seen and examined morning of discharge. No issues reported overnight Patient denied any SOB, CP, Cough, Abd pain, N/V/D/C, Urinary complaints. He still admitted to [facility] however reported he felt much better; tolerating full diet well w/o any N/V or diarrhea. No diarrhea reported overnight. Patient was discharged with the following instructions: - You were admitted for alcohol withdrawal and abdominal pain and diarrhea - You do not have a primary care physician listed; please establish care by calling the number on the back of your insurance card and requesting a PMD. - If you would like to follow up with the [facility], please request for Roberto Niño MD as your primary - Please start taking thiamine, folic acid, and multivitamin once a day as prescribed - You will have some abdominal pain after discharge, we encourage you to eat a low fat / low residue diet - Please return to the nearest emergency department if your symptoms worsen or new concerning symptoms develop - Please stop drinking alcohol; if you need help with alcohol addiction please seek out Alcoholics Anonymous or a rehabilitation facility Patient is medically stable for discharge at this time. - Date & Time of H&P Date of H&P: 10/06/17 Time of H&P: 19:40 Discharge Exam - Head Exam Head Exam: ATRAUMATIC, NORMAL INSPECTION - Eye Exam Eye Exam: EOMI, PERRL, Scleral icterus - ENT Exam ENT Exam: Mucous Membranes Moist - Respiratory Exam Respiratory Exam: Clear to PA & Lateral, NORMAL BREATHING PATTERN, UNREMARKABLE. absent: Wheezes, Respiratory Distress, Stridor - Cardiovascular Exam Cardiovascular Exam: RRR, +S1, +S2 - GI/Abdominal Exam GI & Abdominal Exam: Normal Bowel Sounds, Soft, Unremarkable. absent: Tenderness - Extremities Exam Extremities exam: pedal pulses present (2+ DP/TP BL) Additional comments: No LE Edema BL - Back Exam Back exam: absent: CVA tenderness (L), CVA tenderness (R) - Neurological Exam Neurological exam: Alert, CN II-XII Intact Additional comments: Minimal tremor - Psychiatric Exam Psychiatric exam: Normal Affect, Normal Mood - Skin Skin Exam: Dry, Intact, Warm Additional comments: Some jaundicing Discharge Plan - Discharge Medications Prescriptions: Folic Acid 0.4 mg PO DAILY #30 tablet Multivitamin [Multivitamins] 1 each PO DAILY #30 capsule Thiamine [Vitamin B1] 50 mg PO DAILY #30 tab - Follow Up Plan Condition: FAIR Disposition: HOME/ ROUTINE Instructions: Low Back Pain (DC), Acute Abdomen (Belly Pain), Adult (DC), Gastritis (DC), Alcohol Withdrawal (DC), Alcohol Abuse and Alcoholism (DC), Acute Abdominal Pain (DC) Additional Instructions: - You were admitted for alcohol withdrawal and abdominal pain and diarrhea - You do not have a primary care physician listed; please establish care by calling the number on the back of your insurance card and requesting a PMD. - If you would like to follow up with the [facility], please request for Roberto Niño MD as your primary - Please start taking thiamine, folic acid, and multivitamin once a day as prescribed - You will have some abdominal pain after discharge, we encourage you to eat a low fat / low residue diet - Please return to the nearest emergency department if your symptoms worsen or new concerning symptoms develop - Please stop drinking alcohol; if you need help with alcohol addiction please seek out Alcoholics Anonymous or a rehabilitation facility <Arnav Okeefe - Last Filed: 10/10/17 09:45> Provider - Provider Date of Admission: 10/06/17 21:10 Attending physician: Arnav Okeefe MD Hospital Course - Lab Results Lab Results: Most Recent Lab Values WBC 5.0 10^3/ul (4.5-11.0) 10/08/17 06:45 RBC 4.64 10^6/uL (3.5-6.1) 10/08/17 06:45 Hgb 15.4 g/dL (14.0-18.0) 10/08/17 06:45 Hct 43.5 % (42.0-52.0) 10/08/17 06:45 MCV 93.8 fl (80.0-105.0) 10/08/17 06:45 MCH 33.2 pg (25.0-35.0) 10/08/17 06:45 MCHC 35.4 g/dl (31.0-37.0) 10/08/17 06:45 RDW 12.8 % (11.5-14.5) 10/08/17 06:45 Plt Count 129 10^3/uL (120.0-450.0) 10/08/17 06:45 MPV 10.6 fl (7.0-11.0) 10/08/17 06:45 Gran % 51.0 % (50.0-68.0) 10/08/17 06:45 Lymph % (Auto) 29.7 % (22.0-35.0) 10/08/17 06:45 [place] % (Auto) 13.3 % (1.0-6.0) H 10/08/17 06:45 Eos % (Auto) 5.4 % (1.5-5.0) H 10/08/17 06:45 Baso % (Auto) 0.6 % (0.0-3.0) 10/08/17 06:45 Gran # 2.56 (1.4-6.5) 10/08/17 06:45 Lymph # (Auto) 1.5 (1.2-3.4) 10/08/17 06:45 [place] # (Auto) 0.7 (0.1-0.6) H 10/08/17 06:45 Eos # (Auto) 0.3 (0.0-0.7) 10/08/17 06:45 Baso # (Auto) 0.03 K/mm3 (0.0-2.0) 10/08/17 06:45 PT 9.9 SECONDS (9.4-12.5) 10/07/17 01:00 INR 0.87 10/07/17 01:00 APTT 31.8 Seconds (25.1-36.5) 10/07/17 01:00 Sodium 138 mmol/L (132-148) 10/08/17 06:45 Potassium 3.9 mmol/L (3.6-5.0) 10/08/17 06:45 Chloride 104 mmol/L (98-107) 10/08/17 06:45 Carbon Dioxide 25 mmol/L (21-33) 10/08/17 06:45 Anion Gap 13 (10-20) 10/08/17 06:45 BUN 7 mg/dL (7-21) 10/08/17 06:45 Creatinine 0.6 mg/dl (0.8-1.5) L 10/08/17 06:45 Est GFR ( Amer) > 60 08 06:45 Est GFR (Non-Af Amer) > 60 10/08/17 06:45 Random Glucose 101 mg/dL (70-110) 10/08/17 06:45 Calcium 9.2 mg/dL (8.4-10.5) 10/08/17 06:45 Phosphorus 4.6 mg/dL (2.5-4.5) H 10/08/17 06:45 Magnesium 1.8 mg/dL (1.7-2.2) 10/08/17 06:45 Total Bilirubin 0.8 mg/dL (0.2-1.3) 10/08/17 06:45 AST 155 U/L (17-59) H D 10/08/17 06:45 ALT 135 U/L (7-56) H 10/08/17 06:45 Alkaline Phosphatase 100 U/L (38-126) 10/08/17 06:45 Total Protein 7.0 g/dL (5.8-8.3) 10/08/17 06:45 Albumin 3.7 g/dL (3.0-4.8) 10/08/17 06:45 Globulin 3.3 gm/dL 10/08/17 06:45 Albumin/Globulin Ratio 1.1 (1.1-1.8) 10/08/17 06:45 Triglycerides 74 mg/dL (35-160) 10/07/17 06:00 Cholesterol 182 mg/dL (130-200) 10/07/17 06:00 LDL Cholesterol Direct 50 mg/dL (0-129) 10/07/17 06:00 HDL Cholesterol 110 mg/dL (29-60) H 10/07/17 06:00 Lipase 59 U/L (23-300) 10/07/17 01:00 TSH 3rd Generation 4.62 mIU/mL (0.46-4.68) 10/07/17 06:00 Urine Color Yellow (YELLOW) 10/07/17 12:38 Urine Appearance Clear (CLEAR) 10/07/17 12:38 Urine pH 6.0 (4.7-8.0) 10/07/17 12:38 Ur Specific [place] <= 1.005 (1.005-1.035) 10/07/17 12:38 Urine Protein Negative mg/dL (<30 mg/dL) 10/07/17 12:38 Urine Glucose (UA) Negative mg/dL (NEGATIVE) 10/07/17 12:38 Urine Ketones Negative mg/dL (NEGATIVE) 10/07/17 12:38 Urine Blood Negative (NEGATIVE) 10/07/17 12:38 Urine Nitrate Negative (NEGATIVE) 10/07/17 12:38 Urine Bilirubin Negative (NEGATIVE) 10/07/17 12:38 Urine Urobilinogen 1.0 E.U./dL (<1 E.U./dL) H 10/07/17 12:38 Ur Leukocyte Esterase Negative [place]/uL (NEGATIVE) 10/07/17 12:38 Urine Opiates Screen Negative (NEGATIVE) 10/07/17 13:00 Urine Methadone Screen Negative (NEGATIVE) 10/07/17 13:00 Ur Barbiturates Screen Negative (NEGATIVE) 10/07/17 13:00 Ur Phencyclidine Scrn Negative (NEGATIVE) 10/07/17 13:00 Ur Amphetamines Screen Negative (NEGATIVE) 10/07/17 13:00 U Benzodiazepines Scrn Negative (NEGATIVE) 10/07/17 13:00 U Oth Cocaine Metabols No result (NEGATIVE) 10/07/17 13:00 U Cannabinoids Screen Negative (NEGATIVE) 10/07/17 13:00 Alcohol, Quantitative 65 mg/dL (0-10) H 10/06/17 23:14 HIV 1&2 Ag/Ab, 4th Gen Nonreactive (Nonreactive) 10/07/17 06:00 Attending/Attestation - Attestation I have personally seen and examined this patient.: Yes I have fully participated in the care of the patient.: Yes I have reviewed all pertinent clinical information, including history, physical exam and plan: Yes Notes (Text): 10/10/17 09:44 Medical record note made by the resident after discussion with my direction and input after the patient was personally seen and examined by me. I have reviewed the chart and agree that the record accurately reflects by personal performance of the history, physical exam, data review, and medical decision-making, in the course for the patient. I have also personally directed the plan of care. 46 year old male with a PMHx of HTN, Hep C not treated, IVDA, alcohol dependence , chronic back pain, anxiety and non compliance was admitted with alcohol withdrawal.Alcohol withdrawals are improved. Nausea and vomiting is improved..Abdominal examination is benign.LFT are at base line.Patient is tolerating diet. Issue of ongoing alcohol abuse was discussed in detail with him. Active smoking; smoking cessation is strongly advised. Patient will be discharged home and will follow up with PCP. Management plan was discussed in detail with patient. Education was provided.
== END 2017-10-08 13:03 | disposition home or self-care (01) ==
LOC: ED 18:45 → ERH 21:10 → 2RNO 10-07 00:34 → 5RSO 10-07 11:50
PROVIDERS: ADMIT Internal Medicine; ATTEND Internal Medicine
DX: F10.239 Alcohol dependence with withdrawal, unspecified (principal); I10 Essential (primary) hypertension; B19.20 Unspecified viral hepatitis C without hepatic coma; R56.9 Unspecified convulsions; Z91.19 Patient's noncompliance with other medical treatment and regimen; F41.9 Anxiety disorder, unspecified; F19.10 Other psychoactive substance abuse, uncomplicated; M54.9 Dorsalgia, unspecified; G89.29 Other chronic pain; F17.210 Nicotine dependence, cigarettes, uncomplicated
CPT/HCPCS: 36415; 72100; 80053; 80061; 80320; 80324; 80345; 80346; 80349; 80353; 80358; 80361; 81003; 83690; 83735; 83992; 84100; 84443; 85025; 85610; 85730; 87389; 93005; 96374; 99285; C9113; G0378; J2060; J3411; J7030

== ENCOUNTER 2017-10-16 05:26 | Emergency (ER) | payer MEDICAID ==
[2017-10-16 05:27] VITALS: BMI 24.3
[2017-10-16 06:18] VITALS: RESP 18; O2SAT 95
--- NOTE | 2017-10-16 07:21 | ED PDOC ---
Arrival/HPI - General Chief Complaint: Alcohol Ingestion Time Seen by Provider: 10/16/17 07:06 Historian: Patient - History of Present Illness Narrative History of Present Illness (Text): 10/16/17 07:14 46 year old male, whose past medical history includes hypertension, hepatitis C , chronic back pain, major depressive disorder, substance abuse, and alcohol dependence, who presents to the Emergency department with "alcohol withdrawal". Patient states he usually drinks 2-3 pints of nikita daily, and has not had any since yesterday. Patient states he feels like he has been in withdrawal ever since. upon my assessment, pt is sleeping in nad, no tremors noted. also reported some flank pain to triage. Patient denies any fever, chills, headache , dizziness, chest pain, shortness of breath, cough, abdominal pain, nausea, vomiting, diarrhea, back pain, neck pain, urinary/bowel changes, or any other complaint. 10/16/17 15:43 Time/Duration: Prior to Arrival Symptom Onset: Gradual Symptom Course: Unchanged Activities at Onset: Light Past Medical History - Provider Review Nursing Documentation Reviewed: Yes - Past History Past History: No Previous - Infectious Disease Hx of Infectious Diseases: None - Tetanus Immunization Tetanus Immunization: Unknown, Up to Date - Past Medical History Past Medical History: No Previous - Cardiac Hx Cardiac Disorders: Yes Hx Hypertension: Yes - Pulmonary Hx Respiratory Disorders: Yes (SMOKES 2 CIGARETTES A DAY.DEPENDING ON MOOD AND HOW MUCH MONEY HE HAS.) - Neurological Hx Neurological Disorder: No - HEENT Hx HEENT Disorder: No - Renal Hx Renal Disorder: No - Endocrine/Metabolic Hx Endocrine Disorders: No - Hematological/Oncological Hx Blood Disorders: No - Integumentary Hx Dermatological Disorder: Yes (TATOOS) - Musculoskeletal/Rheumatological Hx Musculoskeletal Disorders: Yes Hx Back Pain: Yes Hx Falls: Yes Other/Comment: CHRONIC BACK PAIN - Gastrointestinal Hx Gastrointestinal Disorders: Yes (ETOH ABUSE-MALNUTRITION,DRINKS DAILY 3 BOTTLES 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 - Genitourinary/Gynecological Hx Genitourinary Disorders: No - Psychiatric Hx Psychophysiologic Disorder: Yes Hx Depression: Yes Hx Substance Use: Yes (H/O HEROIN/COCAINE USE.LAST USED 3 YRS AGO.) Other/Comment: Past drug user,ETOHA ABUSE,SMOKES CIGARETTES - Past Surgical History Past Surgical History: No Previous - Anesthesia Hx Anesthesia: No Hx Anesthesia Reactions: No Hx Malignant Hyperthermia: No - Suicidal Assessment Feels Threatened In Home Enviroment: No Family/Social History - Physician Review Nursing Documentation Reviewed: Yes Family/Social History: No Known Family HX Smoking Status: Current Some Days Smoker Hx Alcohol Use: Yes Hx Substance Use: Yes (H/O HEROIN/COCAINE USE.LAST USED 3 YRS AGO.) Substance used: COCAINE/IV DRUG USE HEROIN Hx Substance Use Treatment: No Allergies/Home Meds Allergies/Adverse Reactions: Allergies Penicillins Allergy (Verified 10/06/17 19:21) RASH pentazocine lactate [From Talwin] Allergy (Verified 10/06/17 19:21) ANAPHYLAXIS Home Medications: Home Meds Medication Instructions Recorded Confirmed Alprazolam [Xanax] 2 mg PO QID 08/05/17 10/06/17 Review of Systems - Physician Review All systems were reviewed & negative as marked: Yes - Review of Systems Constitutional: Other (Alcohol Withdrawal). absent: Fevers, Night Sweats Eyes: Normal ENT: Normal Respiratory: Normal. absent: SOB, Cough Cardiovascular: Normal. absent: Chest Pain Gastrointestinal: Normal. absent: Abdominal Pain, Diarrhea, Nausea, Vomiting Genitourinary Male: Normal. absent: Urinary Output Changes Musculoskeletal: Normal. absent: Back Pain, Neck Pain Skin: Normal Neurological: Normal. absent: Headache, Dizziness Endocrine: Normal Hemo/Lymphatic: Normal Psychiatric: Normal Physical Exam Vital Signs Reviewed: Yes Vital Signs Temp Pulse Resp BP Pulse Ox 10/16/17 09:43 98.6 F 79 18 157/97 H 95 10/16/17 08:53 80 18 114/69 95 10/16/17 07:38 79 18 124/75 95 10/16/17 07:15 78 18 128/69 97 10/16/17 06:17 97.8 F 88 18 126/87 95 Temperature: Afebrile Blood Pressure: Normal Pulse: Regular Respiratory Rate: Normal Appearance: Positive for: Well-Appearing, Non-Toxic, Comfortable Pain Distress: None Mental Status: Positive for: Alert and Oriented X 3 - Systems Exam Head: Present: Atraumatic, Normocephalic Pupils: Present: PERRL Extroacular Muscles: Present: EOMI Conjunctiva: Present: Normal Mouth: Present: Moist Mucous Membranes Neck: Present: Normal Range of Motion Respiratory/Chest: Present: Clear to Auscultation, Good Air Exchange. No: Respiratory Distress, Accessory Muscle Use Cardiovascular: Present: Regular Rate and Rhythm, Normal S1, S2. No: Murmurs Abdomen: No: Tenderness, Distention, Peritoneal Signs Back: Present: Normal Inspection Upper Extremity: Present: Normal Inspection. No: Cyanosis, Edema Lower Extremity: Present: Normal Inspection. No: Edema Neurological: Present: GCS=15, CN II-XII Intact, Speech Normal Skin: Present: Warm, Dry, Normal Color. No: Rashes Psychiatric: Present: Alert, Oriented x 3, Normal Insight, Normal Concentration Medical Decision Making ED Course and Treatment: 10/16/17 07:22 Impression: 46 year old male presents to the emergency department with "alcohol withdrawal" alcohol 268 on arrival. no tremors no tachycardia, no e/o of w/d Plan: -- ABD Pelvis CT -- EKG -- Labs -- Urinalysis -- Reassess and disposition Prior Visits: Notes and results from previous visits were reviewed. Progress Notes: 10/16/17 07:36 EKG reviewed, shows: Normal sinus rhythm @ 74bpm Normal ST and T wave changes 10/16/17 09:16 CT Abdomen and Pelvis reviewed by radiologist, shows: No acute intra-abdominal findings. No evidence of urolithiasis 10/16/17 15:44 pt observed several hours clinically sober steady gait no tremors noted. no tachy . abd soft. no e/o of w/d. advise outpt fu. return precautiosn - Lab Interpretations Lab Results: 10/16/17 07:45 10/16/17 07:45 Lab Results 10/16/17 08:16: Urine Opiates Screen Negative, Urine Methadone Screen Negative, Ur Barbiturates Screen Negative, Ur Phencyclidine Scrn Negative, Ur Amphetamines Screen Negative, U Benzodiazepines Scrn Negative, U Oth Cocaine Metabols Negative, U Cannabinoids Screen Negative 10/16/17 07:45: Lipase 106 10/16/17 07:45: Alcohol, Quantitative 268 H 10/16/17 07:45: Salicylates < 1 L, Acetaminophen < 10.0 L 10/16/17 07:45: Sodium 148, Potassium 4.5, Chloride 108 H, Carbon Dioxide 25, Anion Gap 20, BUN 12, Creatinine 0.8, Est GFR ( Amer) > 60, Est GFR (Non- Af Amer) > 60, Random Glucose 89, Calcium 9.1, Magnesium 2.0, Total Bilirubin 0.5, AST 175 H, ALT 129 H, Alkaline Phosphatase 109, Total Protein 8.4 H, Albumin 4.6, Globulin 3.8, Albumin/Globulin Ratio 1.2 10/16/17 07:45: WBC 5.2, RBC 4.84, Hgb 16.4, Hct 46.6, MCV 96.3, MCH 33.9, MCHC 35.2, RDW 13.1, Plt Count 327, MPV 8.9, Gran % 48.5 L, Lymph % (Auto) 37.1 H, [place] % (Auto) 6.9 H, Eos % (Auto) 4.6, Baso % (Auto) 2.9, Gran # 2.51, Lymph # ( Auto) 1.9, [place] # (Auto) 0.4, Eos # (Auto) 0.2, Baso # (Auto) 0.15 10/16/17 07:42: Urine Color Yellow, Urine Appearance Clear, Urine pH 6.0, Ur Specific [place] 1.015, Urine Protein Negative, Urine Glucose (UA) Negative, Urine Ketones Negative, Urine Blood Negative, Urine Nitrate Negative, Urine Bilirubin Negative, Urine Urobilinogen 0.2, Ur Leukocyte Esterase Small H, Urine RBC 0 - 2, Urine WBC 5 - 10, Ur Epithelial Cells None, Urine Bacteria Small - RAD Interpretation Radiology Orders: 10/16/17 07:37 ABD & PELVIS W/O PO OR IV CONT [CT] Stat - Medication Orders Current Medication Orders: Discontinued Medications Sodium Chloride (Sodium Chloride 0.9%) 1,000 mls @ 999 mls/hr IV .Q1H1M STA Stop: 10/16/17 08:24 Last Admin: 10/16/17 07:36 Dose: 999 mls/hr eMAR Start Stop Document 10/16/17 07:36 SF (Rec: 10/16/17 07:36 SF [id number]) Intravenous Solution Start Date 10/16/17 Start Time 07:36 End Date 10/16/17 End time 08:37 Total Infusion Time 61 - Scribe Statement The provider has reviewed the documentation as recorded by the Scribashley Hicks All medical record entries made by the Scribe were at my direction and personally dictated by me. I have reviewed the chart and agree that the record accurately reflects my personal performance of the history, physical exam, medical decision making, and the department course for this patient. I have also personally directed, reviewed, and agree with the discharge instructions and disposition. Disposition/Present on Arrival - Present on Arrival Any Indicators Present on Arrival: No History of DVT/PE: No History of Uncontrolled Diabetes: No Urinary Catheter: No History of Decub. Ulcer: No History Surgical Site Infection Following: None - Disposition Have Diagnosis and Disposition been Completed?: Yes Diagnosis: Abdominal pain, Alcohol abuse Disposition: HOME/ ROUTINE Disposition Time: 09:00 Condition: STABLE Discharge Instructions (ExitCare): Acute Abdomen (Belly Pain), Adult (DC), Alcohol Abuse and Alcoholism (DC) Additional Instructions: please follow up outpt with local detox centers. return to any er with any worsening symptoms or concerns. Referrals: Tad Marroquin MD [Primary Care Provider] - Follow up with primary Forms: [employer] ([place])
[2017-10-16] MEDS ORDERED: Sodium Chloride 0.9% 1,000 ML IV STA (07:24)
[2017-10-16 08:00] LABS: URINE BILIRUBIN NEGATIVE (NEGATIVE); URINE BLOOD NEGATIVE (NEGATIVE); URINE GLUCOSE (UA) NEGATIVE (NEGATIVE); URINE LEUKOCYTE ESTERASE SMALL Leu/uL (NEGATIVE); URINE PROTEIN NEGATIVE mg/dL (<30 mg/dL); URINE UROBILINOGEN 0.2 E.U./dL (<1 E.U./dL)
[2017-10-16 08:02] LABS: URINE APPEARANCE CLEAR (CLEAR); URINE COLOR YELLOW (YELLOW)
[2017-10-16 08:05] LABS: ACETAMINOPHEN < 10.0 ug/ml (10.0-20.0); SALICYLATE < 1 mg/dL (2.0-20.0)
[2017-10-16 08:07] LABS: URINE BACTERIA SMALL (NEG); URINE RBC 0 - 2 /hpf (0-2)
[2017-10-16 08:08] LABS: ALB/GLOB RATIO 1.2 (1.1-1.8); ALBUMIN 4.6 g/dL (3.0-4.8); ALT/SGPT 129 U/L (7-56); AST/SGOT 175 U/L (17-59); BASO # 0.15 K/mm3 (0.0-2.0); BASO % 2.9 % (0.0-3.0); BLOOD UREA NITROGEN 12 mg/dL (7-21); CALCIUM 9.1 mg/dL (8.4-10.5); EOS # 0.2 (0.0-0.7); EOS % 4.6 % (1.5-5.0); GFR AFRICAN-AMERICAN > 60; GFR NON-AFRICAN AMERICAN > 60; GRAN # 2.51 (1.4-6.5); GRAN % 48.5 % (50.0-68.0); HEMOGLOBIN 16.4 g/dL (14.0-18.0); LYMPH # 1.9 (1.2-3.4); LYMPH % 37.1 % (22.0-35.0); MEAN CELL VOLUME 96.3 fl (80.0-105.0); MEAN CORPUSCULAR HEMOGLOBIN 33.9 pg (25.0-35.0); MEAN CORPUSCULAR HGB CONC 35.2 g/dl (31.0-37.0); MEAN PLATELET VOLUME 8.9 fl (7.0-11.0); MONO # 0.4 (0.1-0.6); MONO % 6.9 % (1.0-6.0); RBC 4.84 10^6/uL (3.5-6.1); RED CELL DISTRIBUTION WIDTH 13.1 % (11.5-14.5); WHITE BLOOD COUNT 5.2 10^3/ul (4.5-11.0)
[2017-10-16 08:51] LABS: BENZODIAZEPINES, UR NEGATIVE (NEGATIVE)
[2017-10-16 08:56] LABS: BARBITURATES, UR NEGATIVE (NEGATIVE); OPIATES, UR NEGATIVE (NEGATIVE); PHENCYCLIDINE, UR NEGATIVE (NEGATIVE)
--- NOTE | 2017-10-16 09:12 | CT ---
Date of service: 10/16/2017 PROCEDURE: CT Abdomen and Pelvis without intravenous contrast HISTORY: right flank pain COMPARISON: None. TECHNIQUE: Without contrast.. Contrast dose: Radiation dose: Total exam DLP = 246 mGy-cm. This CT exam was performed using one or more of the following dose reduction techniques: Automated exposure control, adjustment of the mA and/or kV according to patient size, and/or use of iterative reconstruction technique. FINDINGS: LOWER THORAX: Unremarkable. LIVER: Unremarkable. No gross lesion or ductal dilatation. GALLBLADDER AND BILE DUCTS: Unremarkable. PANCREAS: Unremarkable. No gross lesion or ductal dilatation. SPLEEN: Unremarkable. ADRENALS: Unremarkable. No mass. KIDNEYS AND URETERS: Unremarkable. No hydronephrosis. No solid mass. VASCULATURE: Unremarkable. No aortic aneurysm. BOWEL: Unremarkable. No obstruction. No gross mural thickening. APPENDIX: Unremarkable. Normal appendix. PERITONEUM: Unremarkable. No free fluid. No free air. LYMPH NODES: Unremarkable. No enlarged lymph nodes. BLADDER: Unremarkable. REPRODUCTIVE: Unremarkable. BONES: No acute fracture. OTHER FINDINGS: None. IMPRESSION: No acute intra-abdominal findings. No evidence of urolithiasis
--- NOTE | 2017-10-16 09:29 | CARD ---
APPROVED REPORT Date of service: 10/16/2017 EKG Measurement Heart [id number] <Conclusion> Normal sinus rhythm Normal ECG
[2017-10-16 09:44] VITALS: BP 157/97; PULSE 79; TEMP 98.6
== END 2017-10-16 09:43 | disposition home or self-care (01) ==
LOC: ED 05:26
DX: F10.10 Alcohol abuse, uncomplicated (principal); R10.9 Unspecified abdominal pain; I10 Essential (primary) hypertension
CPT/HCPCS: 74176; 80053; 80320; 80324; 80329; 80345; 80346; 80349; 80353; 80358; 80361; 81001; 83690; 83735; 83992; 85025; 87086; 93005; 96360; 99284; J7030

== ENCOUNTER 2017-11-06 09:35 | Emergency (ER) | payer MEDICAID ==
[2017-11-06 10:05] VITALS: BMI 23.9
[2017-11-06 10:06] VITALS: BP 131/78; RESP 18; TEMP 98.7
[2017-11-06] MEDS ORDERED: Oxycodone/Acetaminophen 5/325 mg Tab PO STA (10:50)
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
[2017-11-06 11:09] VITALS: PULSE 84; O2SAT 99
== END 2017-11-06 11:09 | disposition home or self-care (01) ==
LOC: ED 09:35
DX: M25.511 Pain in right shoulder (principal); I10 Essential (primary) hypertension

== ENCOUNTER 2017-12-04 11:02 | Emergency (ER) | payer OTHER, MEDICAID ==
[2017-12-04 11:02] VITALS: BMI 23.9
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
[2017-12-04 15:35] VITALS: BP 132/72; PULSE 72; RESP 18; TEMP 98.2; O2SAT 100
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
== END 2017-12-04 13:45 | disposition home or self-care (01) ==
LOC: ED 11:02
DX: M79.671 Pain in right foot (principal); I10 Essential (primary) hypertension
CPT/HCPCS: 73610; 73630; 96372; 99281; J1885

== ENCOUNTER 2017-12-10 06:16 | Inpatient (IN) | payer MEDICAID, OTHER ==
[2017-12-10] MEDS ORDERED: Multivitamin (MVI) 10 ML, Thiamine 100 MG, Folic Acid 1 MG in Sodium Chloride 0.9% 1,00... IV ONE (07:19)
[2017-12-10 07:49] LABS: BASO # 0.02 K/mm3 (0.0-2.0); BASO % 0.3 % (0.0-3.0); EOS # 0.2 (0.0-0.7); GRAN # 4.64 (1.4-6.5); GRAN % 70.1 % (50.0-68.0); HEMOGLOBIN 14.8 g/dL (14.0-18.0); LYMPH % 14.7 % (22.0-35.0); MEAN CELL VOLUME 94.1 fl (80.0-105.0); MEAN CORPUSCULAR HEMOGLOBIN 32.6 pg (25.0-35.0); MEAN CORPUSCULAR HGB CONC 34.7 g/dl (31.0-37.0); MEAN PLATELET VOLUME 9.6 fl (7.0-11.0); MONO # 0.8 (0.1-0.6); MONO % 11.9 % (1.0-6.0); RBC 4.54 10^6/uL (3.5-6.1); RED CELL DISTRIBUTION WIDTH 13.2 % (11.5-14.5); WHITE BLOOD COUNT 6.6 10^3/ul (4.5-11.0)
[2017-12-10 08:00] LABS: ALB/GLOB RATIO 1.1 (1.1-1.8); ALBUMIN 4.2 g/dL (3.0-4.8); ALT/SGPT 83 U/L (7-56); AST/SGOT 154 U/L (17-59); BLOOD UREA NITROGEN 4 mg/dL (7-21); GFR NON-AFRICAN AMERICAN > 60
--- NOTE | 2017-12-10 08:22 | ED PDOC ---
Arrival/HPI - General Chief Complaint: Alcohol Ingestion Time Seen by Provider: 12/10/17 07:18 Historian: Patient - History of Present Illness Narrative History of Present Illness (Text): 12/10/17 07:15 47 M, with PMHx of stroke and EtOH abuse, presents to the Emergency department with cc of body tremors. Patient reports his last drink was at 21:00 yesterday evening. Patient notes vomiting and left sided pain. Patient states he recently had surgery and is in lots of pain. Patient denies any other complaints. PMD: Does not have one. Time/Duration: Prior to Arrival Symptom Onset: Gradual Symptom Course: Unchanged Activities at Onset: Light Past Medical History - Provider Review Nursing Documentation Reviewed: Yes - Past History Past History: No Previous - Infectious Disease Hx of Infectious Diseases: None - Tetanus Immunization Tetanus Immunization: Up to Date - Past Medical History Past Medical History: No Previous - Cardiac Hx Cardiac Disorders: Yes Hx Hypertension: Yes - Pulmonary Hx Respiratory Disorders: Yes Other/Comment: SMOKER - Neurological Hx Neurological Disorder: No - HEENT Hx HEENT Disorder: No - Renal Hx Renal Disorder: No - Endocrine/Metabolic Hx Endocrine Disorders: No - Hematological/Oncological Hx Blood Disorders: No - Integumentary Hx Dermatological Disorder: Yes (TATOOS) - Musculoskeletal/Rheumatological Hx Musculoskeletal Disorders: Yes Hx Back Pain: Yes Hx Falls: Yes Hx Fractures: Yes Other/Comment: CHRONIC BACK PAIN - Gastrointestinal Hx Gastrointestinal Disorders: Yes - Genitourinary/Gynecological Hx Genitourinary Disorders: No - Psychiatric Hx Psychophysiologic Disorder: Yes Hx Depression: Yes Hx Substance Use: Yes - Past Surgical History Past Surgical History: No Previous - Surgical History Hx Orthopedic Surgery: Yes - Anesthesia Hx Anesthesia: No Hx Anesthesia Reactions: No Hx Malignant Hyperthermia: No - Suicidal Assessment Feels Threatened In Home Enviroment: No Family/Social History - Physician Review Nursing Documentation Reviewed: Yes Family/Social History: No Known Family HX Smoking Status: Light Smoker < 10 Cigarettes Daily Hx Alcohol Use: Yes Frequency of alcohol use: Daily Hx Substance Use: Yes Substance used: COCAINE/IV DRUG USE HEROIN Hx Substance Use Treatment: No Allergies/Home Meds Allergies/Adverse Reactions: Allergies Penicillins Allergy (Verified 12/04/17 11:31) RASH pentazocine lactate [From Talwin] Allergy (Verified 12/04/17 11:31) ANAPHYLAXIS Home Medications: Home Meds Medication Instructions Recorded Confirmed Unobtainable 12/10/17 12/10/17 Review of Systems - Physician Review All systems were reviewed & negative as marked: Yes (All other systems negative except that noted in the HPI.) Physical Exam - Physical Exam Narrative Physical Exam (Text): 12/10/17 07:15 Gen: VS reviewed, alert, well developed, well nourished, nontoxic, mild distress. ENT: normal pharynx Eye: EOMI, PERRL Neck: no JVD, supple, no adenopathy CV: regular rate, regular rhythm, no rubs, no murmer, no gallops, S1, S2, pulses equal and strong Pulm: no distress, clear to auscultation, no wheeze, no rhonci, breath sounds equal, no rales Abd: soft, nontender, no guarding, no rebound, no rigidity, normal bowel sounds Ext: no edema Skin: good color, no rash, no cyanosis. Well healing surgical scar on right shoulder. Psych: responds appropriately to questions, normal affect Neuro: oriented x3, CN2-12 intact grossly, motor intact, sensation intact. Tremulous. Vital Signs Reviewed: Yes Vital Signs Temp Pulse Resp BP Pulse Ox 12/10/17 07:31 76 18 147/96 H 96 12/10/17 06:25 98.7 F 82 14 166/122 H 96 Temperature: Afebrile Blood Pressure: Hypertensive (at 166/122) Pulse: Regular Respiratory Rate: Normal Pain Distress: Mild Mental Status: Positive for: Alert and Oriented X 3 Medical Decision Making ED Course and Treatment: 12/10/17 07:15 Impression: Differential Diagnosis included but are not limited to: Plan: -- EKG -- Labs -- CBC (with differential) -- IV fluids -- [employer] -- Reassess and disposition Prior Visits: Notes and results from previous visits were reviewed. Patient was last seen in the emergency department on 12/04/17 with cc of right foot pain x 1 day. Patient was discharged home in good condition, given instructions for care, and directed to follow up with orthopedic doctor. Progress Notes: 12/10/14 07:15 Ciwa score: approximately 10. 12/10/17 08:33 re-eval, patient is resting comfortably at this time, will continue to monitor 12/10/17 09:46 admit accepted to hospitalist service, patient to be admitted for acute alcohol withdrawal. patient remained stable throughout Ed course and admitted to tele. - Lab Interpretations Lab Results: 12/10/17 07:15 12/10/17 07:15 Lab Results 12/10/17 07:15: Alcohol, Quantitative 48 H 12/10/17 07:15: Sodium 140, Potassium 3.9, Chloride 107, Carbon Dioxide 22, Anion Gap 15, BUN 4 L, Creatinine 0.7 L, Est GFR ( Amer) > 60, Est GFR (Non-Af Amer) > 60, Random Glucose 90, Calcium 9.0, Magnesium 1.8, Total Bilirubin 0.6, AST 154 H, ALT 83 H, Alkaline Phosphatase 180 H D, Total Protein 7.9, Albumin 4.2, Globulin 3.7, Albumin/Globulin Ratio 1.1 12/10/17 07:15: WBC 6.6 D, RBC 4.54, Hgb 14.8, Hct 42.7, MCV 94.1, MCH 32.6, MCHC 34.7, RDW 13.2, Plt Count 205, MPV 9.6, Gran % 70.1 H, Lymph % (Auto) 14.7 L, [place] % (Auto) 11.9 H, Eos % (Auto) 3.0, Baso % (Auto) 0.3, Gran # 4.64, Lymph # (Auto) 1.0 L, [place] # (Auto) 0.8 H, Eos # (Auto) 0.2, Baso # (Auto) 0.02 - Medication Orders Current Medication Orders: Multivitamins/Vitamin C 10 ml/Thiamine HCl 100 mg/ Folic Acid 1 mg/ Sodium Chloride 1,011.2 mls @ 150 mls/hr IV .[id number] ONE Stop: 12/10/17 14:03 Discontinued Medications Lorazepam (Ativan) 2 mg IVP ONCE ONE; Protocol Stop: 12/10/17 07:39 Last Admin: 12/10/17 07:54 Dose: 2 mg IVP Administration Document 12/10/17 07:54 DINORA (Rec: 12/10/17 07:54 DINORA [id number]) Charges for Administration # of IVP Administrations 1 Ondansetron HCl (Zofran Inj) 4 mg IVP STAT STA Stop: 12/10/17 07:42 Last Admin: 12/10/17 07:55 Dose: 4 mg IVP Administration Document 12/10/17 07:55 DINORA (Rec: 12/10/17 07:55 DINORA [id number]) Charges for Administration # of IVP Administrations 1 - Scribe Statement The provider has reviewed the documentation as recorded by the Scribe Jennifer Hernandez All medical record entries made by the Scribe were at my direction and personally dictated by me. I have reviewed the chart and agree that the record accurately reflects my personal performance of the history, physical exam, medical decision making, and the department course for this patient. I have also personally directed, reviewed, and agree with the discharge instructions and disposition. Disposition/Present on Arrival - Present on Arrival Any Indicators Present on Arrival: No History of DVT/PE: No History of Uncontrolled Diabetes: No Urinary Catheter: No History of Decub. Ulcer: No History Surgical Site Infection Following: None - Disposition Have Diagnosis and Disposition been Completed?: Yes Diagnosis: Alcohol withdrawal Disposition: HOSPITALIZED Disposition Time: 09:45 Condition: STABLE Referrals: Tad Marroquin MD [Primary Care Provider] - Follow up with primary Forms: [email or web address] (Slovenian)
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
--- NOTE | 2017-12-10 13:42 | CT ---
Date of service: 12/10/2017 PROCEDURE: CT Abdomen and Pelvis without intravenous contrast HISTORY: LLQ pain COMPARISON: None. TECHNIQUE: Without contrast. Contrast dose: Radiation dose: Total exam DLP = 350 mGy-cm. This CT exam was performed using one or more of the following dose reduction techniques: Automated exposure control, adjustment of the mA and/or kV according to patient size, and/or use of iterative reconstruction technique. FINDINGS: LOWER THORAX: Unremarkable. LIVER: Fatty infiltration of the liver GALLBLADDER AND BILE DUCTS: Unremarkable. PANCREAS: Unremarkable. No gross lesion or ductal dilatation. SPLEEN: Unremarkable. ADRENALS: Unremarkable. No mass. KIDNEYS AND URETERS: Unremarkable. No hydronephrosis. No solid mass. VASCULATURE: Unremarkable. No aortic aneurysm. BOWEL: Unremarkable. No obstruction. No gross mural thickening. APPENDIX: Unremarkable. Normal appendix. PERITONEUM: Unremarkable. No free fluid. No free air. LYMPH NODES: Unremarkable. No enlarged lymph nodes. BLADDER: Unremarkable. REPRODUCTIVE: Unremarkable. BONES: No acute fracture. OTHER FINDINGS: None. IMPRESSION: No acute intra-abdominal findings
--- NOTE | 2017-12-10 13:58 | RAD ---
Date of service: 12/10/2017 PROCEDURE: Right Foot Radiographs. HISTORY: right foot deformity COMPARISON: None. FINDINGS: BONES: Normal. No fracture. JOINTS: Normal. SOFT TISSUES: Normal. OTHER FINDINGS: None. IMPRESSION: Normal right foot radiographs.
[2017-12-10] MEDS: Folic Acid 1 MG, Thiamine 100 MG, Multivitamin (MVI) 10 ML in Dextrose 5% In Water 1,00... IV SCH ×2 (14:19→22:02)
--- NOTE | 2017-12-10 15:01 | CARD ---
APPROVED REPORT Date of service: 12/10/2017 EKG Measurement Heart [id number] [id number] <Conclusion> Normal sinus rhythm Normal ECG
[2017-12-10 15:37] VITALS: BMI 24.3
[2017-12-10] MEDS ORDERED: Pneumococcal 23-Valent Vaccine IM ONE (15:37)
[2017-12-10] MEDS ORDERED: Influenza Vaccine 60 mcg/0.5 mL SYR (4YR UP) IM ONE (15:37)
[2017-12-11 06:14] VITALS: O2SAT 97
[2017-12-11 06:40] LABS: BASO # 0.02 K/mm3 (0.0-2.0); BASO % 0.4 % (0.0-3.0); EOS # 0.2 (0.0-0.7); EOS % 4.5 % (1.5-5.0); GRAN # 3.15 (1.4-6.5); LYMPH # 1.3 (1.2-3.4); LYMPH % 25.2 % (22.0-35.0); MEAN CELL VOLUME 92.7 fl (80.0-105.0); MEAN CORPUSCULAR HEMOGLOBIN 32.1 pg (25.0-35.0); MEAN CORPUSCULAR HGB CONC 34.6 g/dl (31.0-37.0); MEAN PLATELET VOLUME 9.5 fl (7.0-11.0); MONO # 0.4 (0.1-0.6); MONO % 7.9 % (1.0-6.0); RBC 4.67 10^6/uL (3.5-6.1); RED CELL DISTRIBUTION WIDTH 13.1 % (11.5-14.5); WHITE BLOOD COUNT 5.1 10^3/ul (4.5-11.0)
[2017-12-11 06:53] LABS: ALBUMIN 3.7 g/dL (3.0-4.8); ALT/SGPT 66 U/L (7-56); AST/SGOT 129 U/L (17-59); BLOOD UREA NITROGEN 6 mg/dL (7-21); GFR NON-AFRICAN AMERICAN > 60
[2017-12-11] MEDS ORDERED: Multivitamin Therapeutic Tab PO SCH (08:00)
[2017-12-11] MEDS: Folic Acid 1 MG, Thiamine 100 MG, Multivitamin (MVI) 10 ML in Dextrose 5% In Water 1,00... IV SCH (08:05)
[2017-12-11] MEDS ORDERED: Potassium Chloride 20 mEq ER Tab PO STA (08:41)
[2017-12-11 12:06] VITALS: BP 151/99; RESP 21; TEMP 98.2
[2017-12-11 14:09] VITALS: PULSE 73
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
[2017-12-12] MEDS ORDERED: Pantoprazole 40 mg EC Tab PO SCH (06:00)
== END 2017-12-11 17:15 | disposition left against medical advice (07) | DRG 749 ==
LOC: ED 06:16 → ERH 10:04 → 2RNO 11:24
PROVIDERS: ADMIT Internal Medicine; ATTEND Internal Medicine
DX: F10.239 Alcohol dependence with withdrawal, unspecified (principal); E87.6 Hypokalemia; I10 Essential (primary) hypertension; R10.32 Left lower quadrant pain; Y90.2 Blood alcohol level of 40-59 mg/100 ml; F17.210 Nicotine dependence, cigarettes, uncomplicated; Z86.73 Personal history of transient ischemic attack (TIA), and cerebral infarction without residual deficits; Z88.0 Allergy status to penicillin

== ENCOUNTER 2018-01-08 08:47 | Emergency (ER) | payer MEDICAID, OTHER ==
[2018-01-08 08:48] VITALS: BMI 24.3
[2018-01-08] MEDS ORDERED: Sodium Chloride 0.9% 1,000 ML IV STA (09:03)
[2018-01-08] MEDS ORDERED: Multivitamin (MVI) 10 ML, Thiamine 100 MG, Folic Acid 1 MG in Sodium Chloride 0.9% 1,00... IV ONE (09:03)
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
[2018-01-08 09:25] LABS: BASO # 0.04 K/mm3 (0.0-2.0); BASO % 0.8 % (0.0-3.0); EOS # 0.1 (0.0-0.7); EOS % 1.9 % (1.5-5.0); GRAN # 3.98 (1.4-6.5); GRAN % 75.4 % (50.0-68.0); LYMPH # 0.8 (1.2-3.4); LYMPH % 15.3 % (22.0-35.0); MEAN CELL VOLUME 92.6 fl (80.0-105.0); MEAN CORPUSCULAR HEMOGLOBIN 32.1 pg (25.0-35.0); MEAN CORPUSCULAR HGB CONC 34.7 g/dl (31.0-37.0); MEAN PLATELET VOLUME 9.6 fl (7.0-11.0); MONO # 0.4 (0.1-0.6); MONO % 6.6 % (1.0-6.0); RBC 4.98 10^6/uL (3.5-6.1); RED CELL DISTRIBUTION WIDTH 13.2 % (11.5-14.5); WHITE BLOOD COUNT 5.3 10^3/uL (4.5-11.0)
[2018-01-08 09:36] LABS: ALB/GLOB RATIO 1.1 (1.1-1.8); ALBUMIN 4.6 g/dL (3.0-4.8); ALT/SGPT 205 U/L (7-56); AMYLASE 45 U/L (35-125); AST/SGOT 475 U/L (17-59); BLOOD UREA NITROGEN 5 mg/dL (7-21); CALCIUM 9.6 mg/dL (8.4-10.5); GFR NON-AFRICAN AMERICAN > 60; LIPASE 125 U/L (23-300)
[2018-01-08 10:59] LABS: URINE BILIRUBIN SMALL (NEGATIVE); URINE BLOOD TRACE-INTACT (NEGATIVE); URINE COLOR YELLOW (YELLOW); URINE GLUCOSE (UA) NEGATIVE (NEGATIVE); URINE LEUKOCYTE ESTERASE NEGATIVE Leu/uL (NEGATIVE); URINE PROTEIN TRACE mg/dL (<30 mg/dL)
[2018-01-08 11:00] LABS: URINE APPEARANCE TURBID (CLEAR)
[2018-01-08 11:03] LABS: URINE BACTERIA TRACE (NEG); URINE RBC 0 - 2 /hpf (0-2); URINE WBC 0 - 2 /hpf (0-6)
[2018-01-08 11:19] LABS: BARBITURATES, UR NEGATIVE (NEGATIVE); BENZODIAZEPINES, UR NEGATIVE (NEGATIVE); OPIATES, UR NEGATIVE (NEGATIVE); PHENCYCLIDINE, UR NEGATIVE (NEGATIVE)
--- NOTE | 2018-01-08 11:46 | RAD ---
Date of service: 01/08/2018 HISTORY: alcohol withdrawal COMPARISON: 10/05/2017. FINDINGS: LUNGS: No active pulmonary disease. PLEURA: No significant pleural effusion identified, no pneumothorax apparent. CARDIOVASCULAR: No atherosclerotic calcification present Normal. OSSEOUS STRUCTURES: No significant abnormalities. VISUALIZED UPPER ABDOMEN: Normal. OTHER FINDINGS: None. IMPRESSION: No active disease. No significant interval change compared to the prior examination(s).
[2018-01-08 14:20] VITALS: RESP 18
--- NOTE | 2018-01-08 15:29 | CARD ---
APPROVED REPORT Date of service: 01/08/2018 EKG Measurement Heart [id number] <Conclusion> Normal sinus rhythm Normal ECG
[2018-01-08 16:36] VITALS: BP 130/98; PULSE 66; TEMP 98; O2SAT 99
== END 2018-01-08 16:36 | disposition short-term general hospital (02) ==
LOC: ED 08:47
DX: F10.239 Alcohol dependence with withdrawal, unspecified (principal); Y90.0 Blood alcohol level of less than 20 mg/100 ml; I10 Essential (primary) hypertension; B19.20 Unspecified viral hepatitis C without hepatic coma; F17.210 Nicotine dependence, cigarettes, uncomplicated
CPT/HCPCS: 71045; 80053; 80320; 80324; 80345; 80346; 80349; 80353; 80358; 80361; 81001; 82150; 83690; 83735; 83992; 84100; 85025; 87086; 90791; 93005; 96374; 96375; 96376; 99283; J1885; J2060; J2405; J3411; J7030

== ENCOUNTER 2018-02-16 12:48 | Emergency (ER) | payer MEDICAID ==
[2018-02-16 12:52] VITALS: BP 163/105; PULSE 93; RESP 18; TEMP 98.1; O2SAT 100; BMI 24.0
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
== END 2018-02-16 14:41 | disposition home or self-care (01) ==
LOC: ED 12:48
DX: M25.511 Pain in right shoulder (principal); I10 Essential (primary) hypertension

== ENCOUNTER 2018-03-09 22:13 | Emergency (ER) | payer MEDICAID ==
[2018-03-09 22:36] VITALS: BMI 24.3
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
[2018-03-09 22:41] VITALS: BP 129/91; PULSE 79; RESP 19; TEMP 98; O2SAT 95
== END 2018-03-09 23:15 | disposition home or self-care (01) ==
LOC: ED 22:13
DX: Z76.5 Malingerer [conscious simulation] (principal)

== ENCOUNTER 2018-04-21 06:04 | Emergency (ER) | payer MEDICAID ==
[2018-04-21 06:05] VITALS: BMI 24.3
[2018-04-21 06:15] VITALS: RESP 18; O2SAT 96
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
--- NOTE | 2018-04-21 08:39 | CT ---
Date of service: 04/21/2018 PROCEDURE: CT HEAD WITHOUT CONTRAST. HISTORY: bleeding from L ear, drank last night COMPARISON: None available. TECHNIQUE: Axial computed tomography images were obtained through the head/brain without intravenous contrast. Radiation dose: Total exam DLP = 985.13 mGy-cm. This CT exam was performed using one or more of the following dose reduction techniques: Automated exposure control, adjustment of the mA and/or kV according to patient size, and/or use of iterative reconstruction technique. FINDINGS: HEMORRHAGE: No intracranial hemorrhage. BRAIN: No mass effect or edema. No atrophy or chronic microvascular ischemic changes. VENTRICLES: Unremarkable. No hydrocephalus. CALVARIUM: Unremarkable. PARANASAL SINUSES: Unremarkable as visualized. No significant inflammatory changes. MASTOID AIR CELLS: Unremarkable as visualized. No inflammatory changes. OTHER FINDINGS: None IMPRESSION: No acute findings
--- NOTE | 2018-04-21 08:57 | CT ---
Date of service: 04/21/2018 PROCEDURE: CT Cervical Spine without contrast HISTORY: drank last night bleeding from L ear COMPARISON: None available. TECHNIQUE: Axial computed tomography images were obtained of the cervical spine without the use of intravenous contrast. Coronal and sagittal reformatted images were created and reviewed. Radiation dose: Total exam DLP = 764.76 mGy-cm. This CT exam was performed using one or more of the following dose reduction techniques: Automated exposure control, adjustment of the mA and/or kV according to patient size, and/or use of iterative reconstruction technique. FINDINGS: VERTEBRAE: No fracture. Normal alignment. No destructive bony lesion. DISCS/SPINAL CANAL/NEURAL FORAMINA: No significant central canal or neural foraminal stenosis. Discs heights are grossly preserved. PARASPINAL SOFT TISSUES: Unremarkable. OTHER FINDINGS: None. IMPRESSION: Unremarkable CT of the cervical spine.
[2018-04-21 09:08] LABS: BASO # 0.06 K/mm3 (0.0-2.0); BASO % 1.3 % (0.0-3.0); EOS # 0.2 (0.0-0.7); EOS % 4.1 % (1.5-5.0); HEMOGLOBIN 16.1 g/dL (14.0-18.0); LYMPH # 1.5 (1.2-3.4); LYMPH % 32.8 % (22.0-35.0); MEAN CELL VOLUME 94.2 fl (80.0-105.0); MEAN CORPUSCULAR HEMOGLOBIN 33.3 pg (25.0-35.0); MEAN CORPUSCULAR HGB CONC 35.3 g/dl (31.0-37.0); MONO # 0.4 (0.1-0.6); MONO % 8.1 % (1.0-6.0); RBC 4.84 10^6/uL (3.5-6.1); RED CELL DISTRIBUTION WIDTH 15.2 % (11.5-14.5); URINE BILIRUBIN NEGATIVE (NEGATIVE); URINE BLOOD TRACE-INTACT (NEGATIVE); URINE GLUCOSE (UA) NEGATIVE (NEGATIVE); URINE LEUKOCYTE ESTERASE NEGATIVE Leu/uL (NEGATIVE); URINE PROTEIN NEGATIVE mg/dL (<30 mg/dL); URINE UROBILINOGEN 0.2 E.U./dL (<1 E.U./dL); WHITE BLOOD COUNT 4.7 10^3/uL (4.5-11.0)
[2018-04-21 09:11] LABS: URINE APPEARANCE CLEAR (CLEAR); URINE COLOR LIGHT YELLOW (YELLOW)
[2018-04-21 09:22] LABS: URINE BACTERIA FEW /hpf
[2018-04-21 09:47] LABS: ALB/GLOB RATIO 1.1 (1.1-1.8); ALBUMIN 4.4 g/dL (3.0-4.8); ALT/SGPT 217 U/L (7-56); AST/SGOT 746 U/L (17-59); BLOOD UREA NITROGEN 4 mg/dL (7-21); CALCIUM 8.9 mg/dL (8.4-10.5); GFR NON-AFRICAN AMERICAN > 60
[2018-04-21 10:13] VITALS: BP 130/89; PULSE 82; TEMP 98
== END 2018-04-21 10:13 | disposition home or self-care (01) ==
LOC: ED 06:04
DX: H92.22 Otorrhagia, left ear (principal); R79.89 Other specified abnormal findings of blood chemistry; I10 Essential (primary) hypertension; F17.210 Nicotine dependence, cigarettes, uncomplicated